=== PATIENT | male | born 1995 | race Caucasian/White ===

== ENCOUNTER 2018-03-13 16:48 | Emergency (ER) | payer OTHER ==
[2018-03-13] MEDS: LORazepam 1 MG TABLET PO (17:19)
== END 2018-03-13 18:05 | disposition home or self-care (01) ==
LOC: ER 16:48
DX: T69.022A Immersion foot, left foot, initial encounter (principal); T69.021A Immersion foot, right foot, initial encounter; F17.200 Nicotine dependence, unspecified, uncomplicated; F15.10 Other stimulant abuse, uncomplicated; Z88.0 Allergy status to penicillin; X58.XXXA Exposure to other specified factors, initial encounter; Y93.89 Activity, other specified; Y99.8 Other external cause status; Y92.89 Other specified places as the place of occurrence of the external cause
CPT/HCPCS: 71045; 93005; 99284

== ENCOUNTER 2019-04-17 08:10 | Inpatient (IN) | payer OTHER ==
[~2019-04-17] VITALS: Ht 185.4 cm; Wt 83.9 kg
[~2019-04-17 08:10] MED LIST: LORA-434 PO
[2019-04-17] MEDS ORDERED: IBUPROFEN 200 MG TABLET. PO ONE ×2 (08:26→08:45)
--- NOTE | 2019-04-17 08:40 | PHYS DOC ---
Past Medical History Past Medical History: Other Additional Past Medical Histor: HEARS VOICES,TOOK ANTIPSYCHOTIC MEDS IN PAST Past Surgical History: Tonsillectomy Alcohol Use: Heavy Drug Use: Methamphetamine Adult General Chief Complaint Chief Complaint: FOOT INJURY PAIN HPI HPI 23-year-old male presents to ER with plans of bilateral foot pain is increasingly becoming worse and making it difficult to walk. Patient denies fever, swelling, injury. Patient states he is homeless and has no change of socks/shoes. Pt reports hx of Meth use- with last use 2 days ago. Pt was seen in the ER last year with similar symptoms he reports today his symptoms are worse than that ER visit. Review of Systems Review of Systems Constitutional: Denies fever or chills [] Eyes: Denies change in visual acuity, redness, or eye pain [] HENT: Denies nasal congestion or sore throat [] Respiratory: Denies cough or shortness of breath [] Cardiovascular: No additional information not addressed in HPI [] GI: Denies abdominal pain, nausea, vomiting, bloody stools or diarrhea [] : Denies dysuria or hematuria [] Musculoskeletal: Denies back pain. Reports bilat. foot pain and difficulty walking Integument: Denies rash or skin lesions [] Neurologic: Denies headache, focal weakness or sensory changes [] All other systems were reviewed and found to be within normal limits, except as documented in this note. Current Medications Current Medications Current Medications Medications (Trade) Dose Ordered Sig/Lanette Start Time Stop Time Status Last Admin Dose Admin Fentanyl Citrate (Fentanyl 2ml Vial) 25 mcg 1X ONCE 04/17/19 09:15 04/17/19 09:16 Ibuprofen (Motrin) 200 mg STK-MED ONCE 04/17/19 08:26 04/17/19 08:27 DC Nicotine (Nicoderm Cq 21mg) 1 patch DAILY 04/17/19 09:00 Sodium Chloride 1,000 ml @ 1,000 mls/hr 1X ONCE 04/17/19 09:00 04/17/19 09:59 04/17/19 09:03 1,000 MLS/HR Allergies Allergies Allergies Coded Allergies Type Severity Reaction Last Updated Verified Penicillins Allergy Intermediate Rash 03/02/14 Yes Physical Exam Physical Exam Constitutional: Well developed, well nourished, no acute distress, non-toxic appearance. [] HENT: Normocephalic, atraumatic, oropharynx moist, nose normal. [] Eyes: Pupils equal, conjunctiva normal, no discharge. [] Neck: Normal range of motion, supple, no stridor. [] Cardiovascular: Heart rate regular rhythm, no murmur [] Lungs & Thorax: Bilateral breath sounds clear to auscultation [] Abdomen: Bowel sounds normal, soft, no tenderness, no masses, no pulsatile masses. [] Skin: Warm, dry, no erythema, no rash. [] Back: No tenderness, full ROM Extremities: No cyanosis, no clubbing, ROM intact, no edema. 2+ bilat. posterior tibial/dorsalis pedis. Bilat. plantar surface into lateral/medial sides of feet and edges of toes- white/wrinkled appearance no open wounds. No cellulitic appearance Neurologic: Alert and oriented X 3, normal motor function, normal sensory function, no focal deficits noted. [] Psychologic: Affect normal, judgement normal, mood normal. [] Current Patient Data Vital Signs Vital Signs Date Time Temp Pulse Resp B/P (MAP) Pulse Ox O2 Delivery O2 Flow Rate FiO2 04/17/19 08:13 98.5 106 18 151/84 (106) 98 98.5 EKG EKG [] Radiology/Procedures Radiology/Procedures [] Course & Med Decision Making Course & Med Decision Making Pertinent Labs reviewed. (See chart for details) Patient was evaluated in the ER for complaints of bilateral foot pain and difficulty walking. Patient had exam findings of probable trench foot bilaterally. Patient had no open wounds severity admission was offered for further care and patient was agreeable with this plan. Initially patient was reluctant as he just started a new job this week however patient had concerns as he was having some much difficulty and pain with walking that he felt admission would help in his current situation. Will speak with hospitalist regarding patient's case and admit to their services for further care. Will obtain basic labs and provide patient with additional pain medication. He was provided with dose of ibuprofen at time of initial exam. 0903: Spoke with Dr. Ellsworth, hospitalist and discussed pt's case. Will consult wound care/podiatry with admit order. Yanna Disclaimer Dragon Disclaimer This electronic medical record was generated, in whole or in part, using a voice recognition dictation system. Departure Departure Impression: Primary Impression: Foot pain, bilateral Disposition: ADMITTED INPATIENT Admitting Physician: JYOTHI (Dr. Ellsworth) Referrals: COLUMBA COUCH MD (PCP) CRISPIN MONIQUE APRN Apr 17, 2019 08:40
[2019-04-17] MEDS ORDERED: IV NORMAL SALINE 1000ML BAG 1,000 ML IV ONE (09:00)
[2019-04-17 09:09] LABS: BASO % 1 % (0-3); EOS % 0 % (0-3); HEMATOCRIT 43.9 % (39.0-53.0); HEMOGLOBIN 14.9 g/dL (13.0-17.5); LYMPH # 1.9 x10^3/uL (1.0-4.8); LYMPH % 23 % (24-48); MEAN CORPUSCULAR HEMOGLOBIN 31 pg (25-35); MEAN CORPUSCULAR HGB CONC 34 g/dL (31-37); MEAN CORPUSCULAR VOLUME 90 fL (79-100); MONO # 0.8 x10^3/uL (0.0-1.1); MONO % 9 % (0-9); NEUT # 5.7 x10^3uL (1.8-7.7); NEUT % 68 % (31-73); PLATELET COUNT 241 x10^3/uL (140-400); RED BLOOD COUNT 4.86 x10^6/uL (4.30-5.70); RED CELL DISTRIBUTION WIDTH 14.4 % (11.5-14.5); WHITE BLOOD COUNT 8.5 x10^3/uL (4.0-11.0)
[2019-04-17] MEDS ORDERED: fentaNYL PF VIAL 100 MCG/2 ML VIAL IV ONE (09:15)
[2019-04-17 09:27] LABS: CALCIUM 10.7 mg/dL (8.5-10.1); GFR 91.8; POTASSIUM 4.5 mmol/L (3.5-5.1)
[2019-04-17] MEDS: NICOTINE 21MG PATCH. TD SCH (09:32)
[2019-04-17 09:33] LABS: ALBUMIN 5.2 g/dL (3.4-5.0); ALBUMIN/GLOBULIN RATIO 1.5 (1.0-1.7); C-REACTIVE PROTEIN 1.3 mg/L (0-3.3); TOTAL BILIRUBIN 0.8 mg/dL (0.2-1.0); TOTAL PROTEIN 8.6 g/dL (6.4-8.2)
[2019-04-17 09:45] VITALS: BP 141/81
--- NOTE | 2019-04-17 10:17 | NUR ---
PT. UP TO UNIT AT 0942 VIA WC FROM ER. THIS NURSE AND WEIGHT RECORDER MADE PT. COMFORTABLE. PT. WALKED FROM WC TO BED AND FROM BED TO BATHROOM WITH STEADY GAIT. PT. WALKED ON HEELS AT TIMES R/T FOOT PAIN. PT. EDUCATED ABOUT PT. SAFETY AND FALL PREVENTION. PT. VERBALIZED UNDERSTANDING AND SIGNED FALL RISK CONTRACT. PT. EDUCATED AND INFORMED ABOUT UNIT POLICIES/ROUTINES. VS AND HEAD TO TOE ASSESSMENT COMPLETED AND CHARTED. WILL CONTINUE TO MONITOR PT.
[2019-04-17 15:00] VITALS: BP 128/75
[2019-04-17] MEDS: IBUPROFEN 200 MG TABLET. PO PRN ×2 (15:11→22:37)
[2019-04-17] MEDS ORDERED: cloNIDine HCL 0.1 MG TABLET PO PRN (16:30)
[2019-04-17] MEDS ORDERED: HALOPERIDOL LACTATE 5 MG/ML VIAL. IVP PRN (16:30)
[2019-04-17] MEDS ORDERED: diphenhydrAMINE 50 MG/ML VIAL IVP PRN (16:30)
[2019-04-17] MEDS ORDERED: MULTIVIT INFUSN,ADULT 4,VIT K 10 ML, THIAMINE INJ 100 MG, FOLIC ACID INJ 1 MG in IV NOR... IV ONE (17:00)
[2019-04-17] MEDS: FLUCONAZOLE 100 MG TABLET. PO SCH (17:31)
[2019-04-17] MEDS: LORazepam 1 MG TABLET PO SCH ×2 (17:31→22:30)
--- NOTE | 2019-04-17 19:01 | HP ---
ADMIT DATE: 04/17/2019 CHIEF COMPLAINT: Foot pain. HISTORY OF PRESENT ILLNESS: The patient is a pleasant 23-year-old male who is homeless. He states he drinks a lot of vodka. A few days ago after rain he did not take the shows off, he has had wet shoes on for several days, now he has trench foot, has associated pain. I discussed the case with ER physician. We are going to admit the patient. PAST MEDICAL HISTORY: He hears voices, he took some antipsychotic meds; tonsillectomy, methamphetamine abuse, alcohol abuse. ALLERGIES: None. FAMILY HISTORY: Hypertension. SOCIAL HISTORY: He drinks alcohol heavily, vodka every day. He smokes socially. He smokes methamphetamine as well. He is homeless. MEDICATIONS: Reviewed, please refer to the MRAD. REVIEW OF SYSTEMS: GENERAL: No history of weight change, weakness or fevers. SKIN: No bruising, hair changes or rashes. EYES: No blurred, double or loss of vision. NOSE AND THROAT: No history of nosebleeds, hoarseness or sore throat. HEART: No history of palpitations, chest pain or shortness of breath on exertion. LUNGS: Denies cough, hemoptysis, wheezing or shortness of breath. GASTROINTESTINAL: Denies changes in appetite, nausea, vomiting, diarrhea or constipation. GENITOURINARY: No history of frequency, urgency, hesitancy or nocturia. NEUROLOGIC: Denies history of numbness, tingling, tremor or weakness. PSYCHIATRIC: No history of panic, anxiety or depression. ENDOCRINE: No history of heat or cold intolerance, polyuria or polydipsia. EXTREMITIES: He complains of foot pain bilaterally. PHYSICAL EXAMINATION: VITAL SIGNS: Temperature afebrile, pulse 70, respirations 18, blood pressure 140/90. GENERAL: He is alert, cooperative, pleasant. HEART: Normal S1, S2. LUNGS: Clear. ABDOMEN: Soft. EXTREMITIES: He has got bilateral foot lesions. The skin is very moist and wet. It is trying to dry out now that we have his shoes and socks off. There is some wrinkling of the skin. Appears he has tinea pedis. ASSESSMENT AND PLAN: Trench foot, tinea pedis. The patient is being admitted. We will make sure he gets plenty of fresh air to his feet. I told him to keep his shoes and socks off and keep the windows open. We will consider some antifungals and maybe even antibiotics. I talked to the nurse, the patient might leave AMA. We are going to put him on alcohol withdrawal protocol, home meds, director social service consult. GEREMIAS CARRERO DO DR: CADY/tony JOB#: [id number] / [id number]
[2019-04-17 19:15] VITALS: BP 121/68
[2019-04-17 19:32] LABS: AMPHETAMINE/METHAMPHETAMINE POS (NEG); BARBITURATES NEG (NEG); BENZODIAZEPINES NEG (NEG); CANNABINOIDS NEG (NEG); COCAINE POS (NEG); METHADONE NEG (NEG); OPIATES NEG (NEG); PHENCYCLIDINE NEG (NEG)
[2019-04-17 23:07] VITALS: BP 138/71
[2019-04-18] MEDS: LORazepam 1 MG TABLET PO SCH ×2 (04:30→08:52)
[2019-04-18 07:00] VITALS: BP 127/73
[2019-04-18] MEDS: MULTIVITAMIN with MINERAL TABLET. PO SCH (08:52)
[2019-04-18] MEDS: THIAMINE 100 MG TABLET. PO SCH (08:52)
[2019-04-18] MEDS: FOLIC ACID 1 MG TABLET. PO SCH (08:52)
[2019-04-18] MEDS: FLUCONAZOLE 100 MG TABLET. PO SCH (08:52)
[2019-04-18] MEDS: NICOTINE 21MG PATCH. TD SCH (08:52)
[2019-04-18] MEDS ORDERED: THIAMINE INJ 100 MG in IV DEXTROSE 5% 50 ML IV SCH (09:00)
[2019-04-18 11:00] VITALS: BP 129/73
--- NOTE | 2019-04-18 11:03 | PDOC ---
[employer] PROGRESS NOTE Chief Complaint Chief Complaint Resolving trench foot Tinea pedis Alcohol issues Homeless Psych issues History of Present Illness History of Present Illness Patient seen and examined His feet are much better Suspect he could be discharged We are awaiting the PAT team to evaluate Discussed with case management Vitals Vitals Vital Signs Date Time Temp Pulse Resp B/P (MAP) Pulse Ox O2 Delivery O2 Flow Rate FiO2 04/18/19 07:50 Room Air 04/18/19 07:00 98.1 81 18 127/73 (91) 99 98.1 Physical Exam General: Alert, Oriented X3, Cooperative Heart: Regular rate, Normal S1, Normal S2 Lungs: Clear Abdomen: Normal bowel sounds, Soft Extremities: No clubbing, Other (both feet are much rice drier and have better color there is medium-size ulcer on each plantar surface) Labs Labs: Laboratory Tests Test 04/17/19 18:45 04/17/19 19:10 Direct Bilirubin 0.2 mg/dL (0.0-0.2) Urine Opiates Screen Neg (NEG) Urine Methadone Screen Neg (NEG) Urine Barbiturates Neg (NEG) Urine Phencyclidine Screen Neg (NEG) Urine Amphetamine/Methamphetamine Pos (NEG) Urine Benzodiazepines Screen Neg (NEG) Urine Cocaine Screen Pos (NEG) Urine Cannabinoids Screen Neg (NEG) Urine Ethyl Alcohol Neg (NEG) Assessment and Plan Assessmemt and Plan Problems Medical Problems: (1) Foot pain, bilateral Status: Acute Resolving trench foot Tinea pedis Alcohol issues Homeless Psych issues Plan Discharge planning per psychiatric assessment team Continue Diflucan He's keep his feet dry Home meds Comment Review of Relevant I have reviewed the following items mira (where applicable) has been applied. Labs Laboratory Tests Test 04/17/19 09:00 04/17/19 18:45 04/17/19 19:10 White Blood Count 8.5 x10^3/uL (4.0-11.0) Red Blood Count 4.86 x10^6/uL (4.30-5.70) Hemoglobin 14.9 g/dL (13.0-17.5) Hematocrit 43.9 % (39.0-53.0) Mean Corpuscular Volume 90 fL (79-100) Mean Corpuscular Hemoglobin 31 pg (25-35) Mean Corpuscular Hemoglobin Concent 34 g/dL (31-37) Red Cell Distribution Width 14.4 % (11.5-14.5) Platelet Count 241 x10^3/uL (140-400) Neutrophils (%) (Auto) 68 % (31-73) Lymphocytes (%) (Auto) 23 % (24-48) Monocytes (%) (Auto) 9 % (0-9) Eosinophils (%) (Auto) 0 % (0-3) Basophils (%) (Auto) 1 % (0-3) Neutrophils # (Auto) 5.7 x10^3uL (1.8-7.7) Lymphocytes # (Auto) 1.9 x10^3/uL (1.0-4.8) Monocytes # (Auto) 0.8 x10^3/uL (0.0-1.1) Eosinophils # (Auto) 0.0 x10^3/uL (0.0-0.7) Basophils # (Auto) 0.0 x10^3/uL (0.0-0.2) Erythrocyte Sedimentation Rate 4 (0-15) Sodium Level 139 mmol/L (136-145) Potassium Level 4.5 mmol/L (3.5-5.1) Chloride Level 100 mmol/L (98-107) Carbon Dioxide Level 27 mmol/L (21-32) Anion Gap 12 (6-14) Blood Urea Nitrogen 18 mg/dL (8-26) Creatinine 1.0 mg/dL (0.7-1.3) Estimated GFR (Cockcroft-Gault) 91.8 BUN/Creatinine Ratio 18 (6-20) Glucose Level 110 mg/dL (70-99) Calcium Level 10.7 mg/dL (8.5-10.1) Total Bilirubin 0.8 mg/dL (0.2-1.0) Aspartate Amino Transf (AST/SGOT) 27 U/L (15-37) Alanine Aminotransferase (ALT/SGPT) 66 U/L (16-63) Alkaline Phosphatase 84 U/L (46-116) C-Reactive Protein, Quantitative 1.3 mg/L (0-3.3) Total Protein 8.6 g/dL (6.4-8.2) Albumin 5.2 g/dL (3.4-5.0) Albumin/Globulin Ratio 1.5 (1.0-1.7) Direct Bilirubin 0.2 mg/dL (0.0-0.2) Urine Opiates Screen Neg (NEG) Urine Methadone Screen Neg (NEG) Urine Barbiturates Neg (NEG) Urine Phencyclidine Screen Neg (NEG) Urine Amphetamine/Methamphetamine Pos (NEG) Urine Benzodiazepines Screen Neg (NEG) Urine Cocaine Screen Pos (NEG) Urine Cannabinoids Screen Neg (NEG) Urine Ethyl Alcohol Neg (NEG) Laboratory Tests Test 04/17/19 18:45 04/17/19 19:10 Direct Bilirubin 0.2 mg/dL (0.0-0.2) Urine Opiates Screen Neg (NEG) Urine Methadone Screen Neg (NEG) Urine Barbiturates Neg (NEG) Urine Phencyclidine Screen Neg (NEG) Urine Amphetamine/Methamphetamine Pos (NEG) Urine Benzodiazepines Screen Neg (NEG) Urine Cocaine Screen Pos (NEG) Urine Cannabinoids Screen Neg (NEG) Urine Ethyl Alcohol Neg (NEG) Medications Current Medications Ibuprofen (Motrin) 600 mg 1X ONCE PO Last administered on 04/17/19at 08:27; Start 04/17/19 at 08:45; Stop 04/17/19 at 08:46; Status DC Ibuprofen (Motrin) 200 mg STK-MED ONCE PO ; Start 04/17/19 at 08:26; Stop 04/17/19 at 08:27; Status DC Sodium Chloride 1,000 ml @ 1,000 mls/hr 1X ONCE IV Last administered on 04/17/19at 09:03; Start 04/17/19 at 09:00; Stop 04/17/19 at 09:59; Status DC Nicotine (Nicoderm Cq 21mg) 1 patch DAILY TD Last administered on 04/18/19at 08:52; Start 04/17/19 at 09:00 Fentanyl Citrate (Fentanyl 2ml Vial) 25 mcg 1X ONCE IV Last administered on 04/17/19at 09:05; Start 04/17/19 at 09:15; Stop 04/17/19 at 09:16; Status DC Ibuprofen (Motrin) 600 mg PRN Q6HRS PRN PO PAIN Last administered on 04/17/19at 22:37; Start 04/17/19 at 09:15 Multivitamins 10 ml/Thiamine HCl 100 mg/Folic Acid 1 mg/Sodium Chloride 1,011.2 ml @ 100 mls/ hr 1X ONCE IV Last administered on 04/17/19at 17:31; Start 04/17/19 at 17:00; Stop 04/18/19 at 03:06; Status DC Multivitamins (Thera M Plus) 1 tab DAILY PO Last administered on 04/18/19at 08:52; Start 04/18/19 at 09:00 Folic Acid (Folic Acid) 1 mg DAILY PO Last administered on 04/18/19at 08:52; Start 04/18/19 at 09:00 Thiamine Mononitrate (Vitamin B-1) 100 mg DAILY PO Last administered on 04/18/19at 08:52; Start 04/18/19 at 09:00 Thiamine HCl 100 mg/Dextrose 51 ml @ 100 mls/hr DAILY IV ; Start 04/18/19 at 09:00; Stop 04/22/19 at 09:31; Status UNV Lorazepam (Ativan) 2 mg Q6H PO Last administered on 04/18/19at 08:52; Start 04/17/19 at 16:30; Stop 04/18/19 at 10:47; Status DC Lorazepam (Ativan Inj) 2 mg PRN Q1HR PRN IV For CIWA 8-14 Last administered on 04/18/19at 06:26; Start 04/17/19 at 16:30 Lorazepam (Ativan Inj) 4 mg PRN Q1HR PRN IV For CIWA 15 or greater; Start 04/17/19 at 16:30 Haloperidol Lactate (Haldol Inj) 5 mg PRN Q4HRS PRN IVP Hallucinatns,Confusn,Delirium; Start 04/17/19 at 16:30 Diphenhydramine HCl (Benadryl) 25 mg PRN Q15MIN PRN IVP EPS symptoms 2'Haldol admin; Start 04/17/19 at 16:30 Clonidine HCl (Catapres) 0.1 mg PRN Q1HR PRN PO SBP > 180 or DBP > 100, MRX3; Start 04/17/19 at 16:30 Fluconazole (Diflucan) 200 mg DAILY PO Last administered on 04/18/19at 08:52; Start 04/17/19 at 17:00 Active Scripts Active Ativan (Lorazepam) 1 Mg Tablet 1 Mg PO TID Vitals/I & O Vital Sign - Last 24 Hours 04/17/19 04/17/19 04/17/19 04/17/19 15:00 19:15 20:00 23:07 Temp 97.7 98.2 97.9 97.7 98.2 97.9 Pulse 71 85 79 Resp 18 18 18 B/P (MAP) 128/75 (92) 121/68 (85) 138/71 (93) Pulse Ox 97 99 99 O2 Delivery Room Air Room Air Room Air Room Air 04/18/19 04/18/19 07:00 07:50 Temp 98.1 98.1 Pulse 81 Resp 18 B/P (MAP) 127/73 (91) Pulse Ox 99 O2 Delivery Room Air Room Air Intake and Output 04/17/19 04/17/19 04/18/19 14:59 22:59 06:59 Intake Total 250 ml 780 ml Output Total 550 ml Balance 250 ml 230 ml GEREMIAS CARRERO III DO Apr 18, 2019 11:03
[2019-04-18] MEDS: IBUPROFEN 200 MG TABLET. PO PRN (11:42)
--- NOTE | 2019-04-18 13:07 | NUR ---
SW following for discharge planning. Discussed with RN and Dr. Ellsworth, PAT team eval per Dr. Ellsworth due to pt meth and alcohol use/abuse. Pt possibly homeless as well. Shane from PAT team to see pt today, possible discharge tomorrow (04/19/19). SW will continue to follow.
[2019-04-18] MEDS: clonazePAM 0.5 MG TABLET PO SCH ×2 (13:39→21:42)
[2019-04-18] MEDS: buPROPion SR 150 MG TABLET.SA PO SCH ×2 (13:39→21:42)
[2019-04-18 15:00] VITALS: BP 133/80
--- NOTE | 2019-04-18 15:04 | NUR ---
EDELMIRA following. Shane from PAT team contacted SW to advise pt has been staying at [facility] on and off, however can't always stay there due to the policy. Pt reported to Shane he had been on Wellbutrin and Klonopin. Shane spoke with Dr. Ellsworth, who will restart those meds. Connie from PAT team will be coming to [facility] to do a RADAC assessment with pt, Thursday (04/20/19) morning at 0830am. Shane provided pt with a list of housing options as well as [facility]. Pt will follow with the [facility] after discharge. SW will continue to follow. RN notified.
--- NOTE | 2019-04-18 15:55 | NUR ---
Wound Care Pt seen for wound care consult re: bilateral foot wounds d/t moisture. Per pt, he is homeless and was walking around barefoot and with wet shoes. Pt has intact, serum filled blisters on bilateral plantar 3rd metatarsal head areas, no redness or fluctuance noted. Recommendation of leaving areas LINDA to continue to dry, unless blisters deroof, then recommendation of Xeroform and telfa dressing. Will continue to follow for any wound care changes, no other wounds noted. Pt requesting Ativan at this time, POC discussed with [facility].
[2019-04-18 19:00] VITALS: BP 140/78
[2019-04-18 23:00] VITALS: BP 129/78
--- NOTE | 2019-04-19 02:10 | NUR ---
Charted assessments for 744 when time was to be 1944.
[2019-04-19 03:00] VITALS: BP 125/66
[2019-04-19 07:00] VITALS: BP 132/66
[2019-04-19] MEDS: clonazePAM 0.5 MG TABLET PO SCH ×2 (07:47→20:10)
[2019-04-19] MEDS: FOLIC ACID 1 MG TABLET. PO SCH (07:47)
[2019-04-19] MEDS: THIAMINE 100 MG TABLET. PO SCH (07:47)
[2019-04-19] MEDS: MULTIVITAMIN with MINERAL TABLET. PO SCH (07:47)
[2019-04-19] MEDS: NICOTINE 21MG PATCH. TD SCH (07:48)
[2019-04-19] MEDS: FLUCONAZOLE 100 MG TABLET. PO SCH (07:48)
[2019-04-19] MEDS: buPROPion SR 150 MG TABLET.SA PO SCH ×2 (07:48→20:10)
[2019-04-19 11:00] VITALS: BP 121/76
--- NOTE | 2019-04-19 11:54 | PDOC ---
[employer] PROGRESS NOTE Chief Complaint Chief Complaint Resolving trench foot Tinea pedis Alcohol issues Homeless Psych issues History of Present Illness History of Present Illness Patient seen and examined His feet are much better Suspect he could be discharged We are awaiting the PAT team to evaluate I spoke with Shane twice I also spoke with the patient and his nurse Discussed with case management Vitals Vitals Vital Signs Date Time Temp Pulse Resp B/P (MAP) Pulse Ox O2 Delivery O2 Flow Rate FiO2 04/19/19 11:00 97.8 101 20 121/76 (91) 100 Room Air 97.8 Physical Exam General: Alert, Oriented X3, Cooperative Heart: Regular rate, Normal S1, Normal S2 Lungs: Clear Abdomen: Normal bowel sounds, Soft Extremities: No clubbing, Other (both feet are much soap drier operator and have better color there is medium-size ulcer on each plantar surface) Assessment and Plan Assessmemt and Plan Problems Medical Problems: (1) Foot pain, bilateral Status: Acute Resolving transferred and tenia pedis Plan I left prescriptions for Diflucan Klonopin and Wellbutrin Put discharge orders and if we can get him arrange for outpatient therapy Total time 32 minutes Comment Review of Relevant I have reviewed the following items mira (where applicable) has been applied. Labs Laboratory Tests Test 04/17/19 18:45 04/17/19 19:10 Direct Bilirubin 0.2 mg/dL (0.0-0.2) Urine Opiates Screen Neg (NEG) Urine Methadone Screen Neg (NEG) Urine Barbiturates Neg (NEG) Urine Phencyclidine Screen Neg (NEG) Urine Amphetamine/Methamphetamine Pos (NEG) Urine Benzodiazepines Screen Neg (NEG) Urine Cocaine Screen Pos (NEG) Urine Cannabinoids Screen Neg (NEG) Urine Ethyl Alcohol Neg (NEG) Medications Current Medications Ibuprofen (Motrin) 600 mg 1X ONCE PO Last administered on 04/17/19at 08:27; Start 04/17/19 at 08:45; Stop 04/17/19 at 08:46; Status DC Ibuprofen (Motrin) 200 mg STK-MED ONCE PO ; Start 04/17/19 at 08:26; Stop 04/17/19 at 08:27; Status DC Sodium Chloride 1,000 ml @ 1,000 mls/hr 1X ONCE IV Last administered on 04/17/19at 09:03; Start 04/17/19 at 09:00; Stop 04/17/19 at 09:59; Status DC Nicotine (Nicoderm Cq 21mg) 1 patch DAILY TD Last administered on 04/19/19at 07:48; Start 04/17/19 at 09:00 Fentanyl Citrate (Fentanyl 2ml Vial) 25 mcg 1X ONCE IV Last administered on 04/17/19at 09:05; Start 04/17/19 at 09:15; Stop 04/17/19 at 09:16; Status DC Ibuprofen (Motrin) 600 mg PRN Q6HRS PRN PO PAIN Last administered on 04/18/19at 11:42; Start 04/17/19 at 09:15 Multivitamins 10 ml/Thiamine HCl 100 mg/Folic Acid 1 mg/Sodium Chloride 1,011.2 ml @ 100 mls/ hr 1X ONCE IV Last administered on 04/17/19at 17:31; Start 04/17/19 at 17:00; Stop 04/18/19 at 03:06; Status DC Multivitamins (Thera M Plus) 1 tab DAILY PO Last administered on 04/19/19at 07:47; Start 04/18/19 at 09:00 Folic Acid (Folic Acid) 1 mg DAILY PO Last administered on 04/19/19at 07:47; Start 04/18/19 at 09:00 Thiamine Mononitrate (Vitamin B-1) 100 mg DAILY PO Last administered on 04/19/19at 07:47; Start 04/18/19 at 09:00 Thiamine HCl 100 mg/Dextrose 51 ml @ 100 mls/hr DAILY IV ; Start 04/18/19 at 09:00; Stop 04/22/19 at 09:31; Status UNV Lorazepam (Ativan) 2 mg Q6H PO Last administered on 04/18/19at 08:52; Start 04/17/19 at 16:30; Stop 04/18/19 at 10:47; Status DC Lorazepam (Ativan Inj) 2 mg PRN Q1HR PRN IV For CIWA 8-14 Last administered on 04/19/19at 10:12; Start 04/17/19 at 16:30 Lorazepam (Ativan Inj) 4 mg PRN Q1HR PRN IV For CIWA 15 or greater; Start 04/17/19 at 16:30 Haloperidol Lactate (Haldol Inj) 5 mg PRN Q4HRS PRN IVP Hallucinatns,Confusn,Delirium; Start 04/17/19 at 16:30 Diphenhydramine HCl (Benadryl) 25 mg PRN Q15MIN PRN IVP EPS symptoms 2'Haldol admin; Start 04/17/19 at 16:30 Clonidine HCl (Catapres) 0.1 mg PRN Q1HR PRN PO SBP > 180 or DBP > 100, MRX3; Start 04/17/19 at 16:30 Fluconazole (Diflucan) 200 mg DAILY PO Last administered on 04/19/19at 07:48; Start 04/17/19 at 17:00 Clonazepam (KlonoPIN) 0.5 mg BID PO Last administered on 04/19/19at 07:47; Start 04/18/19 at 14:00 Bupropion HCl (Wellbutrin Sr) 150 mg BID PO Last administered on 04/19/19at 07:48; Start 04/18/19 at 14:00 Active Scripts Active Ativan (Lorazepam) 1 Mg Tablet 1 Mg PO TID Vitals/I & O Vital Sign - Last 24 Hours 04/18/19 04/18/19 04/18/19 04/19/19 15:00 19:00 23:00 03:00 Temp 97.9 97.7 97.9 97.4 97.9 97.7 97.9 97.4 Pulse 83 96 98 97 Resp 20 20 20 20 B/P (MAP) 133/80 (97) 140/78 (98) 129/78 (95) 125/66 (85) Pulse Ox 99 100 97 98 O2 Delivery Room Air Room Air Room Air Room Air 04/19/19 04/19/19 04/19/19 07:00 08:00 11:00 Temp 98.1 97.8 98.1 97.8 Pulse 106 101 Resp 20 20 B/P (MAP) 132/66 (88) 121/76 (91) Pulse Ox 99 100 O2 Delivery Room Air Room Air Room Air GEREMIAS CARRERO III DO Apr 19, 2019 11:54
--- NOTE | 2019-04-19 12:43 | NUR ---
EDELMIRA following for discharge planning. Discussed with Shane LOVELACE with [facility] team is trying to get RADAC assessment brought forward to today. Pt's plan is to go to [facility] [place] upon discharge. EDELMIRA will continue to follow. Addendum: 04/19/19 at 1443 by HERNANDEZ HICKEY Shane with [facility] team contacted EDELMIRA to advise pt's [facility] will be at 1530 today, instead of tomorrow. EDELMIRA notified pt. Pt plans to go to [facility] [place] upon discharge, and will need assistance with transportation. RN notified, cab pass will likely be provided to pt. EDELMIRA will continue to follow.
--- NOTE | 2019-04-19 12:46 | DS ---
DATE OF DISCHARGE: 04/19/2019 ADMISSION DIAGNOSIS: Trench foot. DISCHARGE DIAGNOSES: Resolving trench foot and resolving tinea pedis, probable psychiatric issues, alcoholism. HOSPITAL COURSE: The patient is a pleasant young healthy male who drinks too much. He is homeless, basically left his boots on in the rain for several days and ended up with a trench foot. We admitted him. By the next morning with air and sunshine exposed to his foot, the skin dried up very nicely. He really does not have any obvious infection except for tenia pedis. I did put him on Diflucan. We have asked the psychiatric assessment team to see him because of his alcohol issues and psych issues. I have talked to Shane from the PAT team several times. The plan is to hopefully get the patient home today after the RADAC sees him. DISPOSITION: Home. ACTIVITY: As tolerated. DIET: Low sodium. MEDICATIONS: Please see the MRAD. TOTAL TIME: 32 minutes. GEREMIAS CARRERO DO DR: CADY/tony JOB#: [id number] / [id number]
[2019-04-19 15:00] VITALS: BP 121/76
[2019-04-19 19:00] VITALS: BP 128/77
--- NOTE | 2019-04-19 21:05 | CONS ---
DATE OF CONSULTATION: 04/19/2019 PODIATRIC CONSULTATION: REVIEW OF RECORD: This is a 23-year-old male that is homeless, history of alcoholism, which he is currently being treated. He presented with a trench foot, very wet feet. This has been addressed by wound care and they are improving. There are some blistering areas that are shrinking down, they have not ruptured. No sign of infection is noted. My impression is regarding his inability to cut his toenails. Right hallux nail has some dried blood underneath the nail plate and all nails are long and loose. REVIEW OF HISTORY: He has a history of antipsychotic medications, tonsillectomy, methamphetamine abuse, alcohol abuse. ALLERGIES: None. SOCIAL HISTORY: Heavy alcohol use, vodka every day. Smokes socially. Smokes methamphetamines as well as homeless. EXAMINATION: Long nails that are loose, subungual dried hemorrhage is noted. Right hallux nail most problematic. No signs of infection or abscess. The trench foot condition seems to be stable and improving along with some tinea pedis addressed by the instrument specialist. PLAN: I debrided all nails. No hemorrhage occurred. Thank you for the opportunity to help with this gentleman and hope he improves his situation in the near future. HUGH GRAHAM DPM DR: ANDREW/tony JOB#: [id number] / [id number]
[2019-04-19 23:00] VITALS: BP 119/70
[2019-04-20 03:00] VITALS: BP 118/68
[2019-04-20 07:00] VITALS: BP 120/52
[2019-04-20] MEDS: FLUCONAZOLE 100 MG TABLET. PO SCH (08:10)
[2019-04-20] MEDS: clonazePAM 0.5 MG TABLET PO SCH (08:10)
[2019-04-20] MEDS: buPROPion SR 150 MG TABLET.SA PO SCH (08:10)
[2019-04-20] MEDS: MULTIVITAMIN with MINERAL TABLET. PO SCH (08:11)
[2019-04-20] MEDS: FOLIC ACID 1 MG TABLET. PO SCH (08:11)
[2019-04-20] MEDS: THIAMINE 100 MG TABLET. PO SCH (08:11)
[2019-04-20] MEDS: NICOTINE 21MG PATCH. TD SCH (08:11)
--- NOTE | 2019-04-20 09:59 | NUR ---
SW following for discharge planning. Discussed with RN, pt discharging with a cab pass at 0930 to [facility] for treatment. No further SW needs.
--- NOTE | 2019-04-20 10:35 | NUR ---
pt is discharged to [facility] adult detox unit at 1008 via ambulation via DIANA Joyce. pt is in stable condition. pt has all belongings with him, unable to get sandals for pt to wear. pt received discharge instructions and prescriptions and stated he had no further questions for me. pt took cab directly to the detox unit.
== END 2019-04-20 10:08 | disposition short-term general hospital (02) | DRG 923 ==
LOC: ER 08:10 → 4 NORTH 08:55
PROVIDERS: ADMIT Internal Medicine; ATTEND Internal Medicine
PROC: 0HBRXZZ Excision of Toe Nail, External Approach (ICD-10-PCS; principal; 2019-04-19)
PROC: 0HBRXZZ Excision of Toe Nail, External Approach (ICD-10-PCS; 2019-04-19)
PROC: 0HBRXZZ Excision of Toe Nail, External Approach (ICD-10-PCS; 2019-04-19)
PROC: 0HBRXZZ Excision of Toe Nail, External Approach (ICD-10-PCS; 2019-04-19)
PROC: 0HBRXZZ Excision of Toe Nail, External Approach (ICD-10-PCS; 2019-04-19)
PROC: 0HBRXZZ Excision of Toe Nail, External Approach (ICD-10-PCS; 2019-04-19)
PROC: 0HBRXZZ Excision of Toe Nail, External Approach (ICD-10-PCS; 2019-04-19)
PROC: 0HBRXZZ Excision of Toe Nail, External Approach (ICD-10-PCS; 2019-04-19)
PROC: 0HBRXZZ Excision of Toe Nail, External Approach (ICD-10-PCS; 2019-04-19)
PROC: 0HBRXZZ Excision of Toe Nail, External Approach (ICD-10-PCS; 2019-04-19)
DX: T69.022A Immersion foot, left foot, initial encounter (principal); B35.3 Tinea pedis; T69.021A Immersion foot, right foot, initial encounter; Z59.0 Homelessness; F10.20 Alcohol dependence, uncomplicated; F15.90 Other stimulant use, unspecified, uncomplicated; F17.200 Nicotine dependence, unspecified, uncomplicated; Z82.49 Family history of ischemic heart disease and other diseases of the circulatory system; Z90.49 Acquired absence of other specified parts of digestive tract; Z88.0 Allergy status to penicillin
CPT/HCPCS: 36415; 80053; 80307; 82248; 85025; 85651; 86140; 96361; 96374; 99406; J2060; J3010; J7030; 99285-25

== ENCOUNTER 2019-05-08 21:04 | Emergency (ER) | payer OTHER ==
[~2019-05-08] VITALS: Ht 185.4 cm; Wt 86.2 kg
[2019-05-08 21:21] LABS: BILIRUBIN,URINE NEGATIVE (NEG); CLARITY,URINE CLEAR; COLOR,URINE YELLOW; NITRITE,URINE NEGATIVE (NEG); PROTEIN,URINE NEGATIVE (NEG-TRACE); UROBILINOGEN,URINE 0.2 mg/dL (0.2 mg/dL)
[2019-05-08 21:26] LABS: BACTERIA,URINE 0 /HPF (0-FEW); RBC,URINE 0 /HPF (0-2); WBC,URINE 0 /HPF (0-4)
[2019-05-08 21:27] LABS: BARBITURATES NEG (NEG); BENZODIAZEPINES NEG (NEG); CANNABINOIDS NEG (NEG); COCAINE POS (NEG); METHADONE NEG (NEG); OPIATES NEG (NEG); PHENCYCLIDINE NEG (NEG)
[2019-05-08 21:29] LABS: AMPHETAMINE/METHAMPHETAMINE NEG (NEG)
[2019-05-08 21:44] LABS: BASO % 1 % (0-3); EOS # 0.2 x10^3/uL (0.0-0.7); EOS % 3 % (0-3); HEMOGLOBIN 13.4 g/dL (13.0-17.5); LYMPH # 2.4 x10^3/uL (1.0-4.8); LYMPH % 50 % (24-48); MEAN CORPUSCULAR HEMOGLOBIN 31 pg (25-35); MEAN CORPUSCULAR HGB CONC 34 g/dL (31-37); MEAN CORPUSCULAR VOLUME 90 fL (79-100); MONO # 0.5 x10^3/uL (0.0-1.1); MONO % 11 % (0-9); NEUT # 1.7 x10^3uL (1.8-7.7); NEUT % 35 % (31-73); PLATELET COUNT 198 x10^3/uL (140-400); RED BLOOD COUNT 4.32 x10^6/uL (4.30-5.70); RED CELL DISTRIBUTION WIDTH 14.2 % (11.5-14.5); WHITE BLOOD COUNT 4.9 x10^3/uL (4.0-11.0)
--- NOTE | 2019-05-08 21:45 | PHYS DOC ---
Past Medical History Past Medical History: Alcoholism Additional Past Medical Histor: HEARS VOICES,TOOK ANTIPSYCHOTIC MEDS IN PAST (RAISA CURRY APRN) Past Surgical History: Tonsillectomy (RAISA CURRY APRN) Additional Information: 1/2ppd Alcohol Use: Heavy Additional Information: has decreased alcohol intake currently reports about 1/4 gallon of vodka with OJ daily, and drank a "couple" of beers last night Drug Use: Cocaine, Methamphetamine Social History Narrative: reports he smokes meth "frequently" and crack "a couple of times" (RAISA CURRY APRN) Adult General Chief Complaint Chief Complaint: WITHDRAWL HPI HPI Patient is a 23 year old male with history of alcohol abuse, drug abuse, who presents to the ED today requesting to go to rehab for alcohol and drug use. He states the last time he used drugs and alcohol was yesterday. Denies any suicidal or homicidal ideations. He states his homeless. (RAISA CURRY APRN) Review of Systems Review of Systems Constitutional: Denies fever or chills [] Eyes: Denies change in visual acuity, redness, or eye pain [] HENT: Denies nasal congestion or sore throat [] Respiratory: Denies cough or shortness of breath [] Cardiovascular: No additional information not addressed in HPI [] GI: Denies abdominal pain, nausea, vomiting, bloody stools or diarrhea [] : Denies dysuria or hematuria [] Musculoskeletal: Denies back pain or joint pain [] Integument: Denies rash or skin lesions [] Neurologic: Denies headache, focal weakness or sensory changes [] Psych: Reports the use of alcohol and drugs All other systems were reviewed and found to be within normal limits, except as documented in this note. (RAISA CURRY APRN) Current Medications Current Medications Current Medications Medications (Trade) Dose Ordered Sig/Lanette Start Time Stop Time Status Last Admin Dose Admin Multivitamins 10 ml/Thiamine HCl 100 mg/Folic Acid 1 mg/Sodium Chloride 1,011.2 ml @ 1,000.088 mls/hr 1X ONCE 05/08/19 22:00 05/08/19 23:00 DC 05/08/19 21:31 1,000.088 MLS/HR (SONIA DICKSON MD) Allergies Allergies Allergies Coded Allergies Type Severity Reaction Last Updated Verified Penicillins Allergy Intermediate Rash 03/02/14 Yes (SONIA DICKSON MD) Physical Exam Physical Exam Constitutional: Well developed, well nourished, no acute distress, non-toxic appearance. [] HENT: Normocephalic, atraumatic, bilateral external ears normal, oropharynx moist, no oral exudates, nose normal. [] Eyes: PERRLA, EOMI, conjunctiva normal, no discharge. [] Neck: Normal range of motion, no tenderness, supple, no stridor. [] Cardiovascular:Heart rate regular rhythm, no murmur [] Lungs & Thorax: Bilateral breath sounds clear to auscultation [] Abdomen: Bowel sounds normal, soft, no tenderness, no masses, no pulsatile masses. [] Skin: Warm, dry, no erythema, no rash. [] Back: No tenderness, no CVA tenderness. [] Extremities: No tenderness, no cyanosis, no clubbing, ROM intact, no edema. [] Neurologic: Alert and oriented X 3, normal motor function, normal sensory function, no focal deficits noted. [] Psychologic: Affect normal, judgement normal, mood normal. [] (RAISA CURRY APRN) Current Patient Data Vital Signs Vital Signs Date Time Temp Pulse Resp B/P (MAP) Pulse Ox O2 Delivery O2 Flow Rate FiO2 05/08/19 23:00 74 21 98 Room Air 05/08/19 21:20 98.6 98.6 (SONIA DICKSON MD) Lab Values Laboratory Tests Test 05/08/19 21:07 05/08/19 21:23 Urine Collection Type Unknown Urine Color Yellow Urine Clarity Clear Urine pH 6.0 Urine Specific [place] 1.025 Urine Protein Negative mg/dL (NEG-TRACE) Urine Glucose (UA) Negative mg/dL (NEG) Urine Ketones (Stick) Negative mg/dL (NEG) Urine Blood Negative (NEG) Urine Nitrite Negative (NEG) Urine Bilirubin Negative (NEG) Urine Urobilinogen Dipstick 0.2 mg/dL (0.2 mg/dL) Urine Leukocyte Esterase Negative (NEG) Urine RBC 0 /HPF (0-2) Urine WBC 0 /HPF (0-4) Urine Bacteria 0 /HPF (0-FEW) Urine Opiates Screen Neg (NEG) Urine Methadone Screen Neg (NEG) Urine Barbiturates Neg (NEG) Urine Phencyclidine Screen Neg (NEG) Urine Amphetamine/Methamphetamine Neg (NEG) Urine Benzodiazepines Screen Neg (NEG) Urine Cocaine Screen Pos (NEG) Urine Cannabinoids Screen Neg (NEG) Urine Ethyl Alcohol Neg (NEG) White Blood Count 4.9 x10^3/uL (4.0-11.0) Red Blood Count 4.32 x10^6/uL (4.30-5.70) Hemoglobin 13.4 g/dL (13.0-17.5) Hematocrit 39.0 % (39.0-53.0) Mean Corpuscular Volume 90 fL (79-100) Mean Corpuscular Hemoglobin 31 pg (25-35) Mean Corpuscular Hemoglobin Concent 34 g/dL (31-37) Red Cell Distribution Width 14.2 % (11.5-14.5) Platelet Count 198 x10^3/uL (140-400) Neutrophils (%) (Auto) 35 % (31-73) Lymphocytes (%) (Auto) 50 % (24-48) H Monocytes (%) (Auto) 11 % (0-9) H Eosinophils (%) (Auto) 3 % (0-3) Basophils (%) (Auto) 1 % (0-3) Neutrophils # (Auto) 1.7 x10^3uL (1.8-7.7) L Lymphocytes # (Auto) 2.4 x10^3/uL (1.0-4.8) Monocytes # (Auto) 0.5 x10^3/uL (0.0-1.1) Eosinophils # (Auto) 0.2 x10^3/uL (0.0-0.7) Basophils # (Auto) 0.0 x10^3/uL (0.0-0.2) Sodium Level 141 mmol/L (136-145) Potassium Level 3.9 mmol/L (3.5-5.1) Chloride Level 102 mmol/L (98-107) Carbon Dioxide Level 27 mmol/L (21-32) Anion Gap 12 (6-14) Blood Urea Nitrogen 17 mg/dL (8-26) Creatinine 1.2 mg/dL (0.7-1.3) Estimated GFR (Cockcroft-Gault) 74.4 BUN/Creatinine Ratio 14 (6-20) Glucose Level 132 mg/dL (70-99) H Calcium Level 8.5 mg/dL (8.5-10.1) Total Bilirubin 0.6 mg/dL (0.2-1.0) Aspartate Amino Transferase (AST) 17 U/L (15-37) Alanine Aminotransferase (ALT) 22 U/L (16-63) Alkaline Phosphatase 92 U/L (46-116) Total Protein 7.3 g/dL (6.4-8.2) Albumin 3.8 g/dL (3.4-5.0) Albumin/Globulin Ratio 1.1 (1.0-1.7) Lipase 105 U/L (73-393) Acetaminophen Level < 2 mcg/ml (10-30) L Acetaminophen Last Dose Date Acetaminophen Last Dose Time Ethyl Alcohol Level < 10 mg/dL (0-10) Laboratory Tests 05/08/19 21:23 Laboratory Tests 05/08/19 21:23 (SONIA DICKSON MD) EKG EKG [] (RAISA CURRY APRN) Radiology/Procedures Radiology/Procedures [] (RAISA CURRY APRN) Course & Med Decision Making Course & Med Decision Making Pertinent Labs and Imaging studies reviewed. (See chart for details) This is a 23-year-old male patient presenting to the ED today requesting to go to rehabilitation for alcohol and drug use. CBC, CMP, UA, negative for any acute findings. Salicylate and acetaminophen levels are normal. UDS noted for cocaine use. Alcohol level negative in lab work Estela PAT in the ED talking to patient. D/c to adult detox unit. Transport by Cab. (RAISA CURRY APRN) Course & Med Decision Making Staff Physician Addendum: I was working in the ER during the course of this patient's visit. I was available for consultation as needed, but I was not directly involved in the care of this patient. (SONIA DICKSON MD) Dragon Disclaimer Dragon Disclaimer This electronic medical record was generated, in whole or in part, using a voice recognition dictation system. (RAISA CURRY APRN) Departure Departure Impression: Primary Impression: Alcohol intoxication Additional Impression: Drug abuse Disposition: 01 HOME, SELF-CARE Condition: STABLE Referrals: COLUMBA COUCH MD (PCP) Patient Instructions: Alcohol Problems, Drug Abuse and Addiction-SportsMed Additional Instructions: Please head to adult detox for rehab. Scripts No Active Prescriptions or Reported Meds Problem Qualifiers Primary Impression: Alcohol intoxication Complication of substance-induced condition: uncomplicated Qualified Codes: F10.920 - Alcohol use, unspecified with intoxication, uncomplicated RAISA CURRY APRN May 08, 2019 21:45 SONIA DICKSON MD May 09, 2019 18:06
[2019-05-08 21:53] LABS: CALCIUM 8.5 mg/dL (8.5-10.1); CREATININE 1.2 mg/dL (0.7-1.3); GFR 74.4; POTASSIUM 3.9 mmol/L (3.5-5.1)
[2019-05-08 21:57] LABS: ACETAMIN < 2 mcg/ml (10-30); ETHANOL < 10 mg/dL (0-10)
[2019-05-08 21:59] LABS: ALBUMIN 3.8 g/dL (3.4-5.0); ALBUMIN/GLOBULIN RATIO 1.1 (1.0-1.7); TOTAL BILIRUBIN 0.6 mg/dL (0.2-1.0); TOTAL PROTEIN 7.3 g/dL (6.4-8.2)
[2019-05-08] MEDS ORDERED: MULTIVIT INFUSN,ADULT 4,VIT K 10 ML, THIAMINE INJ 100 MG, FOLIC ACID INJ 1 MG in IV NOR... IV ONE (22:00)
[2019-05-08 22:30] VITALS: BP 112/81
== END 2019-05-08 23:19 | disposition home or self-care (01) ==
LOC: ER 21:04
DX: F10.229 Alcohol dependence with intoxication, unspecified (principal); F14.10 Cocaine abuse, uncomplicated; F15.10 Other stimulant abuse, uncomplicated; F17.200 Nicotine dependence, unspecified, uncomplicated; Z88.0 Allergy status to penicillin; Z59.0 Homelessness; Y90.0 Blood alcohol level of less than 20 mg/100 ml
CPT/HCPCS: 36415; 80053; 80307; 80329; 81001; 83690; 85025; 96365; 99284; G0480; J7030

== ENCOUNTER 2019-05-29 14:09 | Inpatient (IN) | payer OTHER ==
[~2019-05-29] VITALS: Ht 188 cm; Wt 90.7 kg
[2019-05-29] MEDS ORDERED: IV NORMAL SALINE 1000ML BAG 1,000 ML IV ONE (14:30)
[2019-05-29 14:35] LABS: BASO % 1 % (0-3); EOS # 0.1 x10^3/uL (0.0-0.7); EOS % 1 % (0-3); HEMATOCRIT 43.2 % (39.0-53.0); LYMPH # 1.9 x10^3/uL (1.0-4.8); LYMPH % 35 % (24-48); MEAN CORPUSCULAR HEMOGLOBIN 31 pg (25-35); MEAN CORPUSCULAR HGB CONC 35 g/dL (31-37); MEAN CORPUSCULAR VOLUME 91 fL (79-100); MONO # 0.5 x10^3/uL (0.0-1.1); MONO % 10 % (0-9); NEUT # 2.8 x10^3/uL (1.8-7.7); NEUT % 53 % (31-73); PLATELET COUNT 277 x10^3/uL (140-400); RED BLOOD COUNT 4.78 x10^6/uL (4.30-5.70); RED CELL DISTRIBUTION WIDTH 13.8 % (11.5-14.5); WHITE BLOOD COUNT 5.3 x10^3/uL (4.0-11.0)
[2019-05-29 14:48] LABS: CALCIUM 9.2 mg/dL (8.5-10.1); CREATININE 1.4 mg/dL (0.7-1.3); GFR 62.3
[2019-05-29 14:53] LABS: ACETAMIN < 2 mcg/ml (10-30); ETHANOL 63 mg/dL (0-10); SALIC < 2.8 mg/dL (2.8-20.0)
[2019-05-29 14:54] LABS: ALBUMIN 4.2 g/dL (3.4-5.0); ALBUMIN/GLOBULIN RATIO 1.2 (1.0-1.7); TOTAL BILIRUBIN 0.7 mg/dL (0.2-1.0); TOTAL PROTEIN 7.8 g/dL (6.4-8.2)
--- NOTE | 2019-05-29 15:27 | PHYS DOC ---
Past Medical History Past Medical History: Alcoholism, Anxiety, Bipolar, Depression Additional Past Medical Histor: HEARS VOICES,TOOK ANTIPSYCHOTIC MEDS IN PAST Past Surgical History: Tonsillectomy Alcohol Use: Heavy Drug Use: Cocaine, Heroin, Methamphetamine, Opiates Adult General Chief Complaint Chief Complaint: DRUG ABUSE HPI HPI Patient is a 23 year old male who is homeless, was brought here by EMS for suicidal ideation and substance abuse. he said he is suicidal, but he is too scary in to kill himself by any physical way, he wanted to by overdosing himself with cocaine and methamphetamine. He had MIXED cocaine AND methamphetamine, and injected himself last night and today. He denies any headache, no abdominal pain, no nausea vomiting. Patient denies any chest pain. Patient denies homicidal ideation. Review of Systems Review of Systems Constitutional: Denies fever or chills [] Eyes: Denies change in visual acuity, redness, or eye pain [] HENT: Denies nasal congestion or sore throat [] Respiratory: Denies cough or shortness of breath [] Cardiovascular: No additional information not addressed in HPI [] GI: Denies abdominal pain, nausea, vomiting, bloody stools or diarrhea [] : Denies dysuria or hematuria [] Musculoskeletal: Denies back pain or joint pain [] Integument: Denies rash or skin lesions [] Neurologic: Denies headache, focal weakness or sensory changes [] Endocrine: Denies polyuria or polydipsia [] PSYCH: POSITIVE FOR SUICIDAL IDEATION, NO HOMICIDAL IDEATION. All other systems were reviewed and found to be within normal limits, except as documented in this note. Current Medications Current Medications Current Medications Medications (Trade) Dose Ordered Sig/Lanette Start Time Stop Time Status Last Admin Dose Admin Sodium Chloride 1,000 ml @ 1,000 mls/hr 1X ONCE 05/29/19 14:30 05/29/19 15:29 DC 05/29/19 14:36 1,000 MLS/HR Allergies Allergies Allergies Coded Allergies Type Severity Reaction Last Updated Verified Penicillins Allergy Intermediate Rash 03/02/14 Yes Physical Exam Physical Exam Constitutional: Well developed, well nourished, no acute distress, non-toxic appearance. [] HENT: Normocephalic, atraumatic, bilateral external ears normal, oropharynx moist, no oral exudates, nose normal. [] Eyes: PERRLA, EOMI, conjunctiva normal, no discharge. [] Neck: Normal range of motion, no tenderness, supple, no stridor. [] Cardiovascular:Heart rate regular rhythm, no murmur [] Lungs & Thorax: Bilateral breath sounds clear to auscultation [] Abdomen: Bowel sounds normal, soft, no tenderness, no masses, no pulsatile masses. [] Skin: Warm, dry, no erythema, no rash. [] Back: No tenderness, no CVA tenderness. [] Extremities: No tenderness, no cyanosis, no clubbing, ROM intact, no edema. [] Neurologic: Alert and oriented X 3, normal motor function, normal sensory function, no focal deficits noted. [] Psychologic: Affect normal, NORMAL MOOD. HE ADMITTED OF SUICIDAL IDEATION. Current Patient Data Vital Signs Vital Signs Date Time Temp Pulse Resp B/P (MAP) Pulse Ox O2 Delivery O2 Flow Rate FiO2 05/29/19 14:09 97.9 87 18 138/77 (97) 100 Room Air 97.9 Lab Values Laboratory Tests Test 05/29/19 14:22 White Blood Count 5.3 x10^3/uL (4.0-11.0) Red Blood Count 4.78 x10^6/uL (4.30-5.70) Hemoglobin 15.0 g/dL (13.0-17.5) Hematocrit 43.2 % (39.0-53.0) Mean Corpuscular Volume 91 fL (79-100) Mean Corpuscular Hemoglobin 31 pg (25-35) Mean Corpuscular Hemoglobin Concent 35 g/dL (31-37) Red Cell Distribution Width 13.8 % (11.5-14.5) Platelet Count 277 x10^3/uL (140-400) Neutrophils (%) (Auto) 53 % (31-73) Lymphocytes (%) (Auto) 35 % (24-48) Monocytes (%) (Auto) 10 % (0-9) H Eosinophils (%) (Auto) 1 % (0-3) Basophils (%) (Auto) 1 % (0-3) Neutrophils # (Auto) 2.8 x10^3/uL (1.8-7.7) Lymphocytes # (Auto) 1.9 x10^3/uL (1.0-4.8) Monocytes # (Auto) 0.5 x10^3/uL (0.0-1.1) Eosinophils # (Auto) 0.1 x10^3/uL (0.0-0.7) Basophils # (Auto) 0.0 x10^3/uL (0.0-0.2) Sodium Level 142 mmol/L (136-145) Potassium Level 4.0 mmol/L (3.5-5.1) Chloride Level 103 mmol/L (98-107) Carbon Dioxide Level 24 mmol/L (21-32) Anion Gap 15 (6-14) H Blood Urea Nitrogen 16 mg/dL (8-26) Creatinine 1.4 mg/dL (0.7-1.3) H Estimated GFR (Cockcroft-Gault) 62.3 BUN/Creatinine Ratio 11 (6-20) Glucose Level 97 mg/dL (70-99) Calcium Level 9.2 mg/dL (8.5-10.1) Total Bilirubin 0.7 mg/dL (0.2-1.0) Aspartate Amino Transferase (AST) 18 U/L (15-37) Alanine Aminotransferase (ALT) 23 U/L (16-63) Alkaline Phosphatase 67 U/L (46-116) Total Protein 7.8 g/dL (6.4-8.2) Albumin 4.2 g/dL (3.4-5.0) Albumin/Globulin Ratio 1.2 (1.0-1.7) Salicylates Level < 2.8 mg/dL (2.8-20.0) L Salicylate Last Dose Date Unk Salicylate Last Dose Time Unk Acetaminophen Level < 2 mcg/ml (10-30) L Acetaminophen Last Dose Date Unk Acetaminophen Last Dose Time Unk Ethyl Alcohol Level 63 mg/dL (0-10) H Laboratory Tests 05/29/19 14:22 Laboratory Tests 05/29/19 14:22 EKG EKG [] Radiology/Procedures Radiology/Procedures [] Course & Med Decision Making Course & Med Decision Making Pertinent Labs and Imaging studies reviewed. (See chart for details) [] Dragon Disclaimer Dragon Disclaimer This electronic medical record was generated, in whole or in part, using a voice recognition dictation system. Departure Departure Impression: Primary Impression: Substance abuse Additional Impression: Suicidal ideation Referrals: NO PCP (PCP) Scripts No Active Prescriptions or Reported Meds Problem Qualifiers DEBBIE WEI DO May 29, 2019 15:27
--- NOTE | 2019-05-29 15:37 | HP ---
ADMIT DATE: CHIEF COMPLAINT: Substance abuse. HISTORY OF PRESENT ILLNESS: The patient is a pleasant young male who I just discharged a few weeks ago. At that time, we admitted him because of trench foot. He was out in the rain and was homeless. Now he comes in because he is tachycardic, it has been going on for 5 days. He is short of breath. States he has been injecting methamphetamines with his dad. I discussed the case with ER physician. We are going to admit the patient and consult the psychiatric assessment team because the patient is now suicidal. PAST MEDICAL HISTORY: Trench foot. Polysubstance abuse. He injects methamphetamine. ALLERGIES: PENICILLIN. FAMILY HISTORY: Drug abuse. He does drugs with his dad. SOCIAL HISTORY: He is homeless. He smokes and injects methamphetamine among other things. MEDICATIONS: Reviewed. Please refer to the MRAD. REVIEW OF SYSTEMS: GENERAL: No history of weight change, weakness or fevers. SKIN: No bruising, hair changes or rashes. EYES: No blurred, double or loss of vision. NOSE AND THROAT: No history of nosebleeds, hoarseness or sore throat. HEART: No history of palpitations, chest pain or shortness of breath on exertion. LUNGS: Denies cough, hemoptysis, wheezing or shortness of breath. GASTROINTESTINAL: Denies changes in appetite, nausea, vomiting, diarrhea or constipation. GENITOURINARY: No history of frequency, urgency, hesitancy or nocturia. NEUROLOGIC: He complains of mental status change and inability to sleep. PSYCHIATRIC: He complains of depression and wants to . States he has suicidal ideation. States he is tired. ENDOCRINE: No history of heat or cold intolerance, polyuria or polydipsia. EXTREMITIES: Denies muscle weakness, joint pain, pain on walking or stiffness. PHYSICAL EXAMINATION: VITALS: Within normal limits and are stable. GENERAL: No apparent distress. Alert and oriented. HEENT: Head is normocephalic, atraumatic, pupils were equally round and reactive to light and accommodation. NECK: Supple, no JVD, no thyromegaly was noted. LUNGS: Clear to auscultation in all lung [place]ogan without rhonchi or wheezing. HEART: He has tachycardia. ABDOMEN: Soft, nontender. Positive bowel sounds no organomegaly, normal bowel sounds. EXTREMITIES: Without any cyanosis, clubbing, or edema. Pedal pulses intact, Homans sign is negative. NEUROLOGIC: He is anxious and fidgety. PSYCHIATRIC: Normal affect, normal mood. Stable. SKIN: No ulcerations or rashes, good skin turgor, no jaundice. VASCULAR: Good capillary refill, neurovascular bundle appears to be intact. LABORATORY DATA: White count is 5. Drug screen is pending. ASSESSMENT AND PLAN: Suicidal ideation and polysubstance abuse in a middle-aged male who is injecting methamphetamine. The patient has been admitted. We will consult the psychiatric assessment team. IV fluids. Cardiac monitoring. Home meds. DVT prophylaxis. Full code. PROGNOSIS: Guarded. GEREMIAS CARRERO DO DR: CADY/tony JOB#: [id number] / [id number]
[2019-05-29] MEDS ORDERED: ONDANSETRON PF 4 MG/2 ML VIAL. IV PRN (18:00)
[2019-05-29 19:30] VITALS: BP 108/60
[2019-05-29] MEDS: IV NORMAL SALINE 1000ML BAG 1,000 ML IV SCH (20:37)
[2019-05-29 23:00] VITALS: BP 95/53
[2019-05-30 03:00] VITALS: BP 99/52
[2019-05-30] MEDS: IV NORMAL SALINE 1000ML BAG 1,000 ML IV SCH (05:59)
[2019-05-30 07:00] VITALS: BP 105/56
--- NOTE | 2019-05-30 07:35 | EKG ---
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
[2019-05-30] MEDS ORDERED: ACETAMINOPHEN 500 MG TABLET PO PRN (09:00)
[2019-05-30] MEDS ORDERED: THIAMINE 100 MG TABLET. PO SCH (09:00)
[2019-05-30] MEDS ORDERED: chlordiazePOXIDE HCL 25 MG CAPSULE PO PRN (09:00)
[2019-05-30] MEDS ORDERED: ONDANSETRON PF 4 MG/2 ML VIAL. IV PRN (09:00)
[2019-05-30] MEDS ORDERED: NICOTINE 21MG PATCH. TD PRN (09:00)
[2019-05-30] MEDS ORDERED: FOLIC ACID 1 MG TABLET. PO SCH (09:00)
[2019-05-30] MEDS ORDERED: KETOROLAC 15 MG/ML VIAL. IV PRN (09:00)
[2019-05-30] MEDS ORDERED: HYDROcodone/APAP 5/325MG 1 TAB TABLET PO PRN (09:00)
[2019-05-30] MEDS ORDERED: ACETAMINOPHEN/CODEINE 300/30MG TABLET. PO PRN (09:00)
[2019-05-30] MEDS ORDERED: MULTIVITAMIN with MINERAL TABLET. PO SCH (09:00)
[2019-05-30] MEDS ORDERED: diphenhydrAMINE HCL 25 MG CAPSULE PO PRN (09:00)
--- NOTE | 2019-05-30 10:30 | PDOC ---
PROGRESS NOTES Chief Complaint Chief Complaint suicidal ideation Depression NOS Alcoholism Cocaine and methamphetamine use elevated agap History of Present Illness History of Present Illness sitter at bedside Wide awake, ate breakfast good He is guarded based on his demeanor Denies past SI-ER note reviewed, he was scared to do his SI We're waiting for PAT team He is homeless but not interested in shelters He claims he will call his father when he gets discharged Anion gap 15, alcohol level 60s HE claims he is gait steady Plan: Banana bag/CIWA protocol Waiting for PAT team IV fluids and recheck BMP for that elevated Anion gap Continue sitter Counseled on his recreational drug use Maintain sitter for now Other supportive meds No home meds to reconcile Vitals Vitals Vital Signs Date Time Temp Pulse Resp B/P (MAP) Pulse Ox O2 Delivery O2 Flow Rate FiO2 05/30/19 08:00 Room Air 05/30/19 07:00 97.8 78 18 105/56 (72) 97 97.8 05/29/19 14:14 18.0 Physical Exam General: Alert, Oriented X3, Cooperative, No acute distress Heart: Regular rate, Normal S1, Normal S2, No murmurs Lungs: Clear Abdomen: Normal bowel sounds, Soft, No tenderness Extremities: No clubbing, No cyanosis, No edema, Normal pulses Skin: No rashes, No breakdown, No significant lesion Labs LABS Laboratory Tests Test 05/29/19 14:22 White Blood Count 5.3 x10^3/uL (4.0-11.0) Red Blood Count 4.78 x10^6/uL (4.30-5.70) Hemoglobin 15.0 g/dL (13.0-17.5) Hematocrit 43.2 % (39.0-53.0) Mean Corpuscular Volume 91 fL (79-100) Mean Corpuscular Hemoglobin 31 pg (25-35) Mean Corpuscular Hemoglobin Concent 35 g/dL (31-37) Red Cell Distribution Width 13.8 % (11.5-14.5) Platelet Count 277 x10^3/uL (140-400) Neutrophils (%) (Auto) 53 % (31-73) Lymphocytes (%) (Auto) 35 % (24-48) Monocytes (%) (Auto) 10 % (0-9) Eosinophils (%) (Auto) 1 % (0-3) Basophils (%) (Auto) 1 % (0-3) Neutrophils # (Auto) 2.8 x10^3/uL (1.8-7.7) Lymphocytes # (Auto) 1.9 x10^3/uL (1.0-4.8) Monocytes # (Auto) 0.5 x10^3/uL (0.0-1.1) Eosinophils # (Auto) 0.1 x10^3/uL (0.0-0.7) Basophils # (Auto) 0.0 x10^3/uL (0.0-0.2) Sodium Level 142 mmol/L (136-145) Potassium Level 4.0 mmol/L (3.5-5.1) Chloride Level 103 mmol/L (98-107) Carbon Dioxide Level 24 mmol/L (21-32) Anion Gap 15 (6-14) Blood Urea Nitrogen 16 mg/dL (8-26) Creatinine 1.4 mg/dL (0.7-1.3) Estimated GFR (Cockcroft-Gault) 62.3 BUN/Creatinine Ratio 11 (6-20) Glucose Level 97 mg/dL (70-99) Calcium Level 9.2 mg/dL (8.5-10.1) Total Bilirubin 0.7 mg/dL (0.2-1.0) Aspartate Amino Transf (AST/SGOT) 18 U/L (15-37) Alanine Aminotransferase (ALT/SGPT) 23 U/L (16-63) Alkaline Phosphatase 67 U/L (46-116) Total Protein 7.8 g/dL (6.4-8.2) Albumin 4.2 g/dL (3.4-5.0) Albumin/Globulin Ratio 1.2 (1.0-1.7) Salicylates Level < 2.8 mg/dL (2.8-20.0) Salicylate Last Dose Date Unk Salicylate Last Dose Time Unk Acetaminophen Level < 2 mcg/ml (10-30) Acetaminophen Last Dose Date Unk Acetaminophen Last Dose Time Unk Ethyl Alcohol Level 63 mg/dL (0-10) Review of Systems Review of Systems A 14 point ROS was completed with the following noted as positive: Other systems reviewed and negative. \CONSTITUTIONAL: No fever or chills EYES: No recent changes SKIN: No rash or itching CARDIOVASCULAR: No chest pain, syncope, palpitations, or edema RESPIRATORY: No SOB or cough GASTROINTESTINAL: No nausea, vomiting or abdominal pain NEUROLOGICAL: No headaches or weakness ENDOCRINE: No cold or heat intolerance GENITOURINARY: No urgency or frequency of urination MUSCULOSKELETAL: No back pain or joint pain LYMPHATICS: No enlarged lymph nodes PSYCHIATRIC: No anxiety or depression Assessment and Plan Assessmemt and Plan Problems Medical Problems: (1) Substance abuse Status: Acute (2) Suicidal ideation Status: Acute Comment Review of Relevant I have reviewed the following items mira (where applicable) has been applied. Labs Laboratory Tests Test 05/29/19 14:22 White Blood Count 5.3 x10^3/uL (4.0-11.0) Red Blood Count 4.78 x10^6/uL (4.30-5.70) Hemoglobin 15.0 g/dL (13.0-17.5) Hematocrit 43.2 % (39.0-53.0) Mean Corpuscular Volume 91 fL (79-100) Mean Corpuscular Hemoglobin 31 pg (25-35) Mean Corpuscular Hemoglobin Concent 35 g/dL (31-37) Red Cell Distribution Width 13.8 % (11.5-14.5) Platelet Count 277 x10^3/uL (140-400) Neutrophils (%) (Auto) 53 % (31-73) Lymphocytes (%) (Auto) 35 % (24-48) Monocytes (%) (Auto) 10 % (0-9) Eosinophils (%) (Auto) 1 % (0-3) Basophils (%) (Auto) 1 % (0-3) Neutrophils # (Auto) 2.8 x10^3/uL (1.8-7.7) Lymphocytes # (Auto) 1.9 x10^3/uL (1.0-4.8) Monocytes # (Auto) 0.5 x10^3/uL (0.0-1.1) Eosinophils # (Auto) 0.1 x10^3/uL (0.0-0.7) Basophils # (Auto) 0.0 x10^3/uL (0.0-0.2) Sodium Level 142 mmol/L (136-145) Potassium Level 4.0 mmol/L (3.5-5.1) Chloride Level 103 mmol/L (98-107) Carbon Dioxide Level 24 mmol/L (21-32) Anion Gap 15 (6-14) Blood Urea Nitrogen 16 mg/dL (8-26) Creatinine 1.4 mg/dL (0.7-1.3) Estimated GFR (Cockcroft-Gault) 62.3 BUN/Creatinine Ratio 11 (6-20) Glucose Level 97 mg/dL (70-99) Calcium Level 9.2 mg/dL (8.5-10.1) Total Bilirubin 0.7 mg/dL (0.2-1.0) Aspartate Amino Transf (AST/SGOT) 18 U/L (15-37) Alanine Aminotransferase (ALT/SGPT) 23 U/L (16-63) Alkaline Phosphatase 67 U/L (46-116) Total Protein 7.8 g/dL (6.4-8.2) Albumin 4.2 g/dL (3.4-5.0) Albumin/Globulin Ratio 1.2 (1.0-1.7) Salicylates Level < 2.8 mg/dL (2.8-20.0) Salicylate Last Dose Date Unk Salicylate Last Dose Time Unk Acetaminophen Level < 2 mcg/ml (10-30) Acetaminophen Last Dose Date Unk Acetaminophen Last Dose Time Unk Ethyl Alcohol Level 63 mg/dL (0-10) Laboratory Tests Test 05/29/19 14:22 White Blood Count 5.3 x10^3/uL (4.0-11.0) Red Blood Count 4.78 x10^6/uL (4.30-5.70) Hemoglobin 15.0 g/dL (13.0-17.5) Hematocrit 43.2 % (39.0-53.0) Mean Corpuscular Volume 91 fL (79-100) Mean Corpuscular Hemoglobin 31 pg (25-35) Mean Corpuscular Hemoglobin Concent 35 g/dL (31-37) Red Cell Distribution Width 13.8 % (11.5-14.5) Platelet Count 277 x10^3/uL (140-400) Neutrophils (%) (Auto) 53 % (31-73) Lymphocytes (%) (Auto) 35 % (24-48) Monocytes (%) (Auto) 10 % (0-9) Eosinophils (%) (Auto) 1 % (0-3) Basophils (%) (Auto) 1 % (0-3) Neutrophils # (Auto) 2.8 x10^3/uL (1.8-7.7) Lymphocytes # (Auto) 1.9 x10^3/uL (1.0-4.8) Monocytes # (Auto) 0.5 x10^3/uL (0.0-1.1) Eosinophils # (Auto) 0.1 x10^3/uL (0.0-0.7) Basophils # (Auto) 0.0 x10^3/uL (0.0-0.2) Sodium Level 142 mmol/L (136-145) Potassium Level 4.0 mmol/L (3.5-5.1) Chloride Level 103 mmol/L (98-107) Carbon Dioxide Level 24 mmol/L (21-32) Anion Gap 15 (6-14) Blood Urea Nitrogen 16 mg/dL (8-26) Creatinine 1.4 mg/dL (0.7-1.3) Estimated GFR (Cockcroft-Gault) 62.3 BUN/Creatinine Ratio 11 (6-20) Glucose Level 97 mg/dL (70-99) Calcium Level 9.2 mg/dL (8.5-10.1) Total Bilirubin 0.7 mg/dL (0.2-1.0) Aspartate Amino Transf (AST/SGOT) 18 U/L (15-37) Alanine Aminotransferase (ALT/SGPT) 23 U/L (16-63) Alkaline Phosphatase 67 U/L (46-116) Total Protein 7.8 g/dL (6.4-8.2) Albumin 4.2 g/dL (3.4-5.0) Albumin/Globulin Ratio 1.2 (1.0-1.7) Salicylates Level < 2.8 mg/dL (2.8-20.0) Salicylate Last Dose Date Unk Salicylate Last Dose Time Unk Acetaminophen Level < 2 mcg/ml (10-30) Acetaminophen Last Dose Date Unk Acetaminophen Last Dose Time Unk Ethyl Alcohol Level 63 mg/dL (0-10) Medications Current Medications Sodium Chloride 1,000 ml @ 1,000 mls/hr 1X ONCE IV Last administered on 05/29/19at 14:36; Start 05/29/19 at 14:30; Stop 05/29/19 at 15:29; Status DC Ondansetron HCl (Zofran) 4 mg PRN Q8HRS PRN IV NAUSEA/VOMITING; Start 05/29/19 at 18:00; Stop 05/30/19 at 08:57; Status DC Sodium Chloride 1,000 ml @ 100 mls/hr Q10H IV Last administered on 05/30/19at 05:59; Start 05/29/19 at 18:00; Stop 05/30/19 at 17:59 Ondansetron HCl (Zofran) 4 mg PRN Q6HRS PRN IV NAUSEA/VOMITING; Start 05/30/19 at 09:00 Chlordiazepoxide (Librium) 25 mg PRN Q6HRS PRN PO ANXIETY / AGITATION; Start 05/30/19 at 09:00 Acetaminophen (Tylenol) 500 mg PRN Q6HRS PRN PO MILD PAIN / TEMP; Start 05/30/19 at 09:00 Acetaminophen/ Codeine Phosphate (Tylenol #3) 1 tab PRN Q6HRS PRN PO MODERATE PAIN; Start 05/30/19 at 09:00 Acetaminophen/ Hydrocodone Bitart (Lortab 5/325) 1 tab PRN Q4HRS PRN PO SEVERE PAIN; Start 05/30/19 at 09:00 Ketorolac Tromethamine (Toradol 15mg Vial) 15 mg PRN Q6HRS PRN IV PAIN; Start 05/30/19 at 09:00; Stop 06/04/19 at 08:59 Diphenhydramine HCl (Benadryl) 25 mg PRN QHS PRN PO INSOMNIA; Start 05/30/19 at 09:00 Nicotine (Nicoderm Cq 21mg) 1 patch PRN DAILY PRN TD SMOKING CESSATION Last administered on 05/30/19at 09:59; Start 05/30/19 at 09:00 Multivitamins (Thera M Plus) 1 tab DAILY PO Last administered on 05/30/19at 09:58; Start 05/30/19 at 09:00 Thiamine Mononitrate (Vitamin B-1) 100 mg DAILY PO Last administered on 05/03 07/21at 09:58; Start 05/30/19 at 09:00 Folic Acid (Folic Acid) 1 mg DAILY PO Last administered on 05/30/19at 09:58; Start 05/30/19 at 09:00 Active Scripts Active No Active Prescriptions or Reported Medications Vitals/I & O Vital Sign - Last 24 Hours 05/29/19 05/29/19 05/29/19 05/29/19 14:09 14:14 15:10 15:44 Temp 97.9 97.9 Pulse 87 88 74 74 Resp 18 17 14 15 B/P (MAP) 138/77 (97) 138/77 (97) 112/50 (70) 105/52 (69) Pulse Ox 100 98 98 97 O2 Delivery Room Air Room Air Room Air Room Air O2 Flow Rate 18.0 05/29/19 05/29/19 05/29/19 05/29/19 16:14 16:44 17:14 17:44 Pulse 72 72 68 66 Resp 15 15 15 14 B/P (MAP) 110/53 (72) 108/43 (64) 108/47 (67) 103/44 (63) Pulse Ox 97 97 99 100 O2 Delivery Room Air Room Air Room Air Room Air 05/29/19 05/29/19 05/29/19 05/30/19 18:14 19:30 23:00 03:00 Temp 97.5 97.7 97.6 97.5 97.7 97.6 Pulse 66 65 55 63 Resp 15 18 16 18 B/P (MAP) 108/46 (66) 108/60 (76) 95/53 (67) 99/52 (68) Pulse Ox 98 100 97 100 O2 Delivery Room Air 05/30/19 05/30/19 07:00 08:00 Temp 97.8 97.8 Pulse 78 Resp 18 B/P (MAP) 105/56 (72) Pulse Ox 97 O2 Delivery Room Air Room Air Intake and Output 05/29/19 05/29/19 05/30/19 14:59 22:59 06:59 Intake Total 2720 ml 120 ml Output Total 0 ml Balance 2720 ml 120 ml SHELBY MARTINS MD May 30, 2019 10:30
[2019-05-30] MEDS ORDERED: CHLO1CAP PO (10:32)
[2019-05-30] MEDS ORDERED: THIA100T22 PO (10:32)
[2019-05-30] MEDS ORDERED: FOLI1TAB16 PO (10:32)
--- NOTE | 2019-05-30 10:35 | PDOC3 ---
Discharge Summary Visit Information Date of Admission: May 29, 2019 Date of Discharge: May 30, 2019 Admitting Diagnosis Comment: Alcoholism SI Elevated anion gap Methamphetamine and cocaine use Final Diagnosis Problems Medical Problems: (1) Substance abuse Status: Acute (2) Suicidal ideation Status: Acute Brief Hospital Course Allergies Allergies Coded Allergies Type Severity Reaction Last Updated Verified Penicillins Allergy Intermediate Rash 03/02/14 Yes Vital Signs Vital Signs Date Time Temp Pulse Resp B/P (MAP) Pulse Ox O2 Delivery O2 Flow Rate FiO2 05/30/19 08:00 Room Air 05/30/19 07:00 97.8 78 18 105/56 (72) 97 97.8 05/29/19 14:14 18.0 Lab Results Laboratory Tests Test 05/29/19 14:22 White Blood Count 5.3 x10^3/uL (4.0-11.0) Red Blood Count 4.78 x10^6/uL (4.30-5.70) Hemoglobin 15.0 g/dL (13.0-17.5) Hematocrit 43.2 % (39.0-53.0) Mean Corpuscular Volume 91 fL (79-100) Mean Corpuscular Hemoglobin 31 pg (25-35) Mean Corpuscular Hemoglobin Concent 35 g/dL (31-37) Red Cell Distribution Width 13.8 % (11.5-14.5) Platelet Count 277 x10^3/uL (140-400) Neutrophils (%) (Auto) 53 % (31-73) Lymphocytes (%) (Auto) 35 % (24-48) Monocytes (%) (Auto) 10 % (0-9) Eosinophils (%) (Auto) 1 % (0-3) Basophils (%) (Auto) 1 % (0-3) Neutrophils # (Auto) 2.8 x10^3/uL (1.8-7.7) Lymphocytes # (Auto) 1.9 x10^3/uL (1.0-4.8) Monocytes # (Auto) 0.5 x10^3/uL (0.0-1.1) Eosinophils # (Auto) 0.1 x10^3/uL (0.0-0.7) Basophils # (Auto) 0.0 x10^3/uL (0.0-0.2) Sodium Level 142 mmol/L (136-145) Potassium Level 4.0 mmol/L (3.5-5.1) Chloride Level 103 mmol/L (98-107) Carbon Dioxide Level 24 mmol/L (21-32) Anion Gap 15 (6-14) Blood Urea Nitrogen 16 mg/dL (8-26) Creatinine 1.4 mg/dL (0.7-1.3) Estimated GFR (Cockcroft-Gault) 62.3 BUN/Creatinine Ratio 11 (6-20) Glucose Level 97 mg/dL (70-99) Calcium Level 9.2 mg/dL (8.5-10.1) Total Bilirubin 0.7 mg/dL (0.2-1.0) Aspartate Amino Transf (AST/SGOT) 18 U/L (15-37) Alanine Aminotransferase (ALT/SGPT) 23 U/L (16-63) Alkaline Phosphatase 67 U/L (46-116) Total Protein 7.8 g/dL (6.4-8.2) Albumin 4.2 g/dL (3.4-5.0) Albumin/Globulin Ratio 1.2 (1.0-1.7) Salicylates Level < 2.8 mg/dL (2.8-20.0) Salicylate Last Dose Date Unk Salicylate Last Dose Time Unk Acetaminophen Level < 2 mcg/ml (10-30) Acetaminophen Last Dose Date Unk Acetaminophen Last Dose Time Unk Ethyl Alcohol Level 63 mg/dL (0-10) Laboratory Tests Test 05/29/19 14:22 White Blood Count 5.3 x10^3/uL (4.0-11.0) Red Blood Count 4.78 x10^6/uL (4.30-5.70) Hemoglobin 15.0 g/dL (13.0-17.5) Hematocrit 43.2 % (39.0-53.0) Mean Corpuscular Volume 91 fL (79-100) Mean Corpuscular Hemoglobin 31 pg (25-35) Mean Corpuscular Hemoglobin Concent 35 g/dL (31-37) Red Cell Distribution Width 13.8 % (11.5-14.5) Platelet Count 277 x10^3/uL (140-400) Neutrophils (%) (Auto) 53 % (31-73) Lymphocytes (%) (Auto) 35 % (24-48) Monocytes (%) (Auto) 10 % (0-9) Eosinophils (%) (Auto) 1 % (0-3) Basophils (%) (Auto) 1 % (0-3) Neutrophils # (Auto) 2.8 x10^3/uL (1.8-7.7) Lymphocytes # (Auto) 1.9 x10^3/uL (1.0-4.8) Monocytes # (Auto) 0.5 x10^3/uL (0.0-1.1) Eosinophils # (Auto) 0.1 x10^3/uL (0.0-0.7) Basophils # (Auto) 0.0 x10^3/uL (0.0-0.2) Sodium Level 142 mmol/L (136-145) Potassium Level 4.0 mmol/L (3.5-5.1) Chloride Level 103 mmol/L (98-107) Carbon Dioxide Level 24 mmol/L (21-32) Anion Gap 15 (6-14) Blood Urea Nitrogen 16 mg/dL (8-26) Creatinine 1.4 mg/dL (0.7-1.3) Estimated GFR (Cockcroft-Gault) 62.3 BUN/Creatinine Ratio 11 (6-20) Glucose Level 97 mg/dL (70-99) Calcium Level 9.2 mg/dL (8.5-10.1) Total Bilirubin 0.7 mg/dL (0.2-1.0) Aspartate Amino Transf (AST/SGOT) 18 U/L (15-37) Alanine Aminotransferase (ALT/SGPT) 23 U/L (16-63) Alkaline Phosphatase 67 U/L (46-116) Total Protein 7.8 g/dL (6.4-8.2) Albumin 4.2 g/dL (3.4-5.0) Albumin/Globulin Ratio 1.2 (1.0-1.7) Salicylates Level < 2.8 mg/dL (2.8-20.0) Salicylate Last Dose Date Unk Salicylate Last Dose Time Unk Acetaminophen Level < 2 mcg/ml (10-30) Acetaminophen Last Dose Date Unk Acetaminophen Last Dose Time Unk Ethyl Alcohol Level 63 mg/dL (0-10) Brief Hospital Course Mr. Au is a 23 old white male admitted for SI but too scared to do it, elevated alcohol level 60s with positive cocaine and methamphetamine on UDS. Pat teamto assess the patient Elevated anion gap 15, gait steady. Looking good 2notes today If cleared By pat team, then home today with Librium , folate, etc all on chart Patient seen and examined Consults performed pat Procedures performed none Discharge Information Condition at Discharge: Improved, Stable Disposition/Orders: D/C to Home Scheduled Chlordiazepoxide/Clidinium Br (Librax Capsule) 1 Each Capsule, 1 CAP PO TID for alcohol withdrawal, #60 Ref 3 Prescribed by: SHELBY MARTINS on 05/30/19 1032 Folic Acid (Folic Acid) 1 Mg Tablet, 1 TAB PO DAILY for mvi, #90 Ref 1 Prescribed by: SHELBY MARTINS on 05/30/19 1032 Thiamine Mononitrate (Vitamin B-1) 100 Mg Tablet, 100 MG PO DAILY05 for mvi, #30 Prescribed by: SHELBY MARTISN on 05/30/19 1032 SHELBY MARTINS MD May 30, 2019 10:35
[2019-05-30 10:45] LABS: BILIRUBIN,URINE SMALL (NEG); CLARITY,URINE CLEAR; COLOR,URINE YELLOW; NITRITE,URINE NEGATIVE (NEG); PROTEIN,URINE NEGATIVE (NEG-TRACE); UROBILINOGEN,URINE 0.2 mg/dL (0.2 mg/dL)
[2019-05-30 10:52] LABS: BACTERIA,URINE 0 /HPF (0-FEW); RBC,URINE 0 /HPF (0-2)
[2019-05-30 10:53] LABS: AMPHETAMINE/METHAMPHETAMINE POS (NEG); BARBITURATES NEG (NEG); BENZODIAZEPINES NEG (NEG); CANNABINOIDS NEG (NEG); COCAINE NEG (NEG); METHADONE NEG (NEG); OPIATES NEG (NEG); PHENCYCLIDINE NEG (NEG)
[2019-05-30 11:03] VITALS: BP 110/64
--- NOTE | 2019-05-30 14:12 | NUR ---
pt requested staff call his brother Tony to ask if he could visit pt while in hospital. Pt also requested that Tony not tell anyone else. pt did allow this repairer typewriter to inform Tony of the reason for his admission. Tony stated that he would keep it confidential but that he would not be able to visit. Pt understanding. Tony's number is
--- NOTE | 2019-05-30 14:32 | NUR ---
EDELMIRA consulted for PAT team destinee Lynn here to see pt at this time. Addendum: 05/30/19 at 1626 by LEO HICKEY Pt currently on the phone with Adult detox unit. Pt is able to go to [facility] if they accept him. Discussed with
[2019-05-30 14:37] VITALS: BP 101/60
--- NOTE | 2019-05-30 18:27 | NUR ---
Pt left the unit at approx 1825 via cab. Pt stable upon discharge. IV removed, no complications. Any additional questions or concerns were addressed upon discharge.
== END 2019-05-30 18:25 | disposition home or self-care (01) | DRG 897 ==
LOC: ER 14:09 → 5 SOUTH 18:00 → ER 18:55
PROVIDERS: ADMIT Internal Medicine; ATTEND Internal Medicine
DX: F15.10 Other stimulant abuse, uncomplicated (principal); R45.851 Suicidal ideations; F14.10 Cocaine abuse, uncomplicated; F10.20 Alcohol dependence, uncomplicated; Y90.0 Blood alcohol level of less than 20 mg/100 ml; F17.200 Nicotine dependence, unspecified, uncomplicated; F31.9 Bipolar disorder, unspecified; Z59.0 Homelessness; F41.9 Anxiety disorder, unspecified; Z88.0 Allergy status to penicillin; Z90.49 Acquired absence of other specified parts of digestive tract
CPT/HCPCS: 36415; 80053; 80307; 80329; 81001; 85025; 93005; 99406; G0480; J2060; J7030

== ENCOUNTER 2019-06-08 14:54 | Emergency (ER) | payer OTHER ==
[~2019-06-08] VITALS: Ht 188 cm; Wt 86.2 kg
[~2019-06-08 14:54] MED LIST changes: +CHLO1CAP PO; +FOLI1TAB16 PO; +THIA100T22 PO
[2019-06-08 15:52] VITALS: BP 131/69
[2019-06-08] MEDS ORDERED: DEXAMETHASONE 4 MG TABLET PO STA (15:55)
--- NOTE | 2019-06-08 16:00 | PHYS DOC ---
Past Medical History Past Medical History: No Pertinent History Additional Past Medical Histor: HEARS VOICES,TOOK ANTIPSYCHOTIC MEDS IN PAST Past Surgical History: No Surgical History Alcohol Use: Occasionally Drug Use: None Adult General Chief Complaint Chief Complaint: SKIN RASH/ABSCESS [facility] Patient is a 23 year old male who presents with a rash has been ongoing for 2 days. The location of the rashes the face, groin, bilateral arms. The patient states that he was working in the yard 2 days ago and thinks he was near some poison evelyn. Denies any pain but states it has been itching. Has been trying Benadryl and itching lotions over the counter. Review of Systems Review of Systems Constitutional: Denies fever or chills [] Eyes: Denies change in visual acuity, redness, or eye pain [] HENT: Denies nasal congestion or sore throat [] Respiratory: Denies cough or shortness of breath [] Cardiovascular: No additional information not addressed in HPI [] GI: Denies abdominal pain, nausea, vomiting, bloody stools or diarrhea [] : Denies dysuria or hematuria [] Musculoskeletal: Denies back pain or joint pain [] Integument: Reports rash to face, groin, bilateral arms. Neurologic: Denies headache, focal weakness or sensory changes [] Endocrine: Denies polyuria or polydipsia [] Complete systems were reviewed and found to be within normal limits, except as documented in this note. Allergies Allergies Allergies Coded Allergies Type Severity Reaction Last Updated Verified Penicillins Allergy Intermediate Rash 03/02/14 Yes Physical Exam Physical Exam Constitutional: Well developed, well nourished, no acute distress, non-toxic appearance. [] HENT: Normocephalic, atraumatic, bilateral external ears normal, oropharynx moist, no oral exudates, nose normal. [] Eyes: PERRLA, EOMI, conjunctiva normal, no discharge. [] Neck: Normal range of motion, no tenderness, supple, no stridor. [] Cardiovascular:Heart rate regular rhythm, no murmur [] Lungs & Thorax: Bilateral breath sounds clear to auscultation [] Abdomen: Bowel sounds normal, soft, no tenderness, no masses, no pulsatile masses. [] Skin: erythema and papular rash to arms, face, and groin. Back: No tenderness, no CVA tenderness. [] Extremities: No tenderness, no cyanosis, no clubbing, ROM intact, no edema. [] Neurologic: Alert and oriented X 3, normal motor function, normal sensory function, no focal deficits noted. [] Psychologic: Affect normal, judgement normal, mood normal. [] EKG EKG [] Radiology/Procedures Radiology/Procedures [] Course & Med Decision Making Course & Med Decision Making Pertinent Labs and Imaging studies reviewed. (See chart for details) Appears to have poison evelyn. Will give Dexamethasone in ER and have continue treatment at home with Calamine lotion. Dragon Disclaimer Dragon Disclaimer This electronic medical record was generated, in whole or in part, using a voice recognition dictation system. Departure Departure Impression: Primary Impression: Poison evelyn dermatitis Disposition: HOME, SELF-CARE Condition: STABLE Referrals: NO PCP (PCP) Patient Instructions: Poison Evelyn, [id number] Additional Instructions: Thank you for visiting [facility]. We appreciate you trusting us with your care. If any additional problems come up don't hesitate to return to visit us. Please follow up with your primary care provider so they can plan additional care if needed and know about the problem that you had. If symptoms worsen come back to the Emergency Department. Any concerning symptoms that start such as chest pain, shortness of air, weakness or numbness on one side of the body, running high fevers or any other concerning symptoms return to the ER. Please continue to use Calamine lotion at home. PRANAV MARTIN APRN Jun 08, 2019 16:00
== END 2019-06-08 16:09 | disposition home or self-care (01) ==
LOC: ER 14:54
DX: L23.7 Allergic contact dermatitis due to plants, except food (principal); Z88.0 Allergy status to penicillin
CPT/HCPCS: 99282; J8540

== ENCOUNTER 2019-08-26 09:12 | Emergency (ER) | payer OTHER ==
[~2019-08-26] VITALS: Ht 185.4 cm; Wt 87.5 kg
[2019-08-26 09:24] VITALS: BP 199/88
[2019-08-26 10:59] LABS: BASO % 1 % (0-3); EOS # 0.2 x10^3/uL (0.0-0.7); EOS % 2 % (0-3); HEMATOCRIT 47.2 % (39.0-53.0); HEMOGLOBIN 16.2 g/dL (13.0-17.5); LYMPH # 1.5 x10^3/uL (1.0-4.8); LYMPH % 18 % (24-48); MEAN CORPUSCULAR HEMOGLOBIN 31 pg (25-35); MEAN CORPUSCULAR HGB CONC 34 g/dL (31-37); MEAN CORPUSCULAR VOLUME 91 fL (79-100); MONO # 0.7 x10^3/uL (0.0-1.1); MONO % 9 % (0-9); NEUT # 5.7 x10^3/uL (1.8-7.7); NEUT % 70 % (31-73); PLATELET COUNT 217 x10^3/uL (140-400); RED BLOOD COUNT 5.17 x10^6/uL (4.30-5.70); RED CELL DISTRIBUTION WIDTH 13.8 % (11.5-14.5); WHITE BLOOD COUNT 8.2 x10^3/uL (4.0-11.0)
[2019-08-26 11:03] LABS: CALCIUM 10.1 mg/dL (8.5-10.1); CREATININE 1.1 mg/dL (0.7-1.3); GFR 81.6; POTASSIUM 4.9 mmol/L (3.5-5.1)
[2019-08-26 11:04] LABS: BILIRUBIN,URINE NEGATIVE (NEG); CLARITY,URINE CLEAR; COLOR,URINE YELLOW; NITRITE,URINE NEGATIVE (NEG); PROTEIN,URINE NEGATIVE (NEG-TRACE); UROBILINOGEN,URINE 0.2 mg/dL (0.2 mg/dL)
[2019-08-26 11:09] LABS: ALBUMIN 5.1 g/dL (3.4-5.0); ALBUMIN/GLOBULIN RATIO 1.3 (1.0-1.7); MAGNESIUM 1.8 mg/dL (1.8-2.4); TOTAL BILIRUBIN 1.1 mg/dL (0.2-1.0); TOTAL PROTEIN 9.1 g/dL (6.4-8.2)
[2019-08-26 11:11] LABS: BACTERIA,URINE 0 /HPF (0-FEW); RBC,URINE 0 /HPF (0-2); SQUAMOUS EPITHELIAL CELL,UR FEW /LPF; WBC,URINE 0 /HPF (0-4)
[2019-08-26 11:15] LABS: BARBITURATES NEG (NEG); BENZODIAZEPINES NEG (NEG); CANNABINOIDS NEG (NEG); COCAINE NEG (NEG); METHADONE NEG (NEG); OPIATES NEG (NEG); PHENCYCLIDINE NEG (NEG)
[2019-08-26 11:20] LABS: ACETAMIN < 2 mcg/ml (10-30); ETHANOL < 10 mg/dL (0-10); SALIC < 2.8 mg/dL (2.8-20.0)
[2019-08-26 11:21] LABS: AMPHETAMINE/METHAMPHETAMINE NEG (NEG)
--- NOTE | 2019-08-26 11:37 | PHYS DOC ---
Past Medical History Past Medical History: No Pertinent History Additional Past Medical Histor: HEARS VOICES,TOOK ANTIPSYCHOTIC MEDS IN PAST (KATRIN PARRA APRN) Past Surgical History: No Surgical History (KATRIN PARRA APRN) Alcohol Use: Occasionally Drug Use: None (KATRIN PARRA APRN) Attending Signature I have participated in the care of this patient and I have reviewed and agree with all pertinent clinical information above including history, exam, and recommendations. (ELA VU MD) Adult General Chief Complaint Chief Complaint: HEAD INJURY/TRAUMA HPI HPI Patient is a 24 year old male who presents to the emergency department with complaints of increased anxiety and worry about a possible concussion. Patient states that he drinks alcohol daily, 12 natty tall boys of malt liquor every day. His roommates told him that he passed out a week ago when he was drinking causing him to fall and hit his head. Patient denies ever having any scalp swelling, nausea, vomiting, vision changes, or bruising to his eyes or behind his ears. He denies any nose bleeds or drainage from his ears. Pt denies any pain at this time. He reports severe anxiety and a desire to stop drinking alcohol. Pt denies any suicidal or homicidal ideations. (KATRIN PARRA APRN) Review of Systems Review of Systems Constitutional: Denies fever or chills [] Eyes: Denies change in visual acuity, redness, or eye pain [] HENT: Denies nasal congestion or sore throat [] Respiratory: Denies cough or shortness of breath [] Cardiovascular: No additional information not addressed in HPI [] GI: Denies abdominal pain, nausea, vomiting, or diarrhea [] : Denies dysuria or hematuria [] Musculoskeletal: Denies back pain or joint pain [] Integument: Denies rash or skin lesions [] Neurologic: Denies headache, focal weakness or sensory changes [] Psychiatric:See HPI All other systems were reviewed and found to be within normal limits, except as documented in this note. (KATRIN PARRA APRN) Allergies Allergies Allergies Coded Allergies Type Severity Reaction Last Updated Verified Penicillins Allergy Intermediate Rash 03/02/14 Yes (ELA VU MD) Physical Exam Physical Exam Constitutional: Well developed, well nourished, no acute distress, non-toxic appearance. [] HENT: Normocephalic, atraumatic, bilateral external ears normal, bilateral TMs normal, oropharynx moist, no oral exudates, nose normal. [] Eyes: PERRLA, EOMI, conjunctiva normal, no discharge. [] Neck: Normal range of motion, no tenderness, supple, no stridor. [] Cardiovascular:Heart rate regular rhythm, no murmur [] Lungs & Thorax: Bilateral breath sounds clear to auscultation [] Skin: Warm, dry, no erythema, no rash. [] Back: No tenderness, no CVA tenderness. [] Extremities: No tenderness, no cyanosis, no clubbing, ROM intact, no edema. [] Neurologic: Alert and oriented X 3, normal motor function, normal sensory func tion, no focal deficits noted. [] Psychologic: Affect anxious, judgement normal, mood normal. [] (KATRIN PARRA APRN) Current Patient Data Vital Signs Vital Signs Date Time Temp Pulse Resp B/P (MAP) Pulse Ox O2 Delivery O2 Flow Rate FiO2 08/26/19 09:24 98.6 92 17 199/88 (125) 99 Room Air 98.6 (ELA VU MD) Lab Values Laboratory Tests Test 08/26/19 10:37 08/26/19 10:48 White Blood Count 8.2 x10^3/uL (4.0-11.0) Red Blood Count 5.17 x10^6/uL (4.30-5.70) Hemoglobin 16.2 g/dL (13.0-17.5) Hematocrit 47.2 % (39.0-53.0) Mean Corpuscular Volume 91 fL (79-100) Mean Corpuscular Hemoglobin 31 pg (25-35) Mean Corpuscular Hemoglobin Concent 34 g/dL (31-37) Red Cell Distribution Width 13.8 % (11.5-14.5) Platelet Count 217 x10^3/uL (140-400) Neutrophils (%) (Auto) 70 % (31-73) Lymphocytes (%) (Auto) 18 % (24-48) L Monocytes (%) (Auto) 9 % (0-9) Eosinophils (%) (Auto) 2 % (0-3) Basophils (%) (Auto) 1 % (0-3) Neutrophils # (Auto) 5.7 x10^3/uL (1.8-7.7) Lymphocytes # (Auto) 1.5 x10^3/uL (1.0-4.8) Monocytes # (Auto) 0.7 x10^3/uL (0.0-1.1) Eosinophils # (Auto) 0.2 x10^3/uL (0.0-0.7) Basophils # (Auto) 0.0 x10^3/uL (0.0-0.2) Sodium Level 138 mmol/L (136-145) Potassium Level 4.9 mmol/L (3.5-5.1) Chloride Level 99 mmol/L (98-107) Carbon Dioxide Level 25 mmol/L (21-32) Anion Gap 14 (6-14) Blood Urea Nitrogen 16 mg/dL (8-26) Creatinine 1.1 mg/dL (0.7-1.3) Estimated GFR (Cockcroft-Gault) 81.6 BUN/Creatinine Ratio 15 (6-20) Glucose Level 91 mg/dL (70-99) Calcium Level 10.1 mg/dL (8.5-10.1) Magnesium Level 1.8 mg/dL (1.8-2.4) Total Bilirubin 1.1 mg/dL (0.2-1.0) H Aspartate Amino Transferase (AST) 16 U/L (15-37) Alanine Aminotransferase (ALT) 14 U/L (16-63) L Alkaline Phosphatase 81 U/L (46-116) Total Protein 9.1 g/dL (6.4-8.2) H Albumin 5.1 g/dL (3.4-5.0) H Albumin/Globulin Ratio 1.3 (1.0-1.7) Salicylates Level < 2.8 mg/dL (2.8-20.0) L Salicylate Last Dose Date Unknown Salicylate Last Dose Time Unknown Acetaminophen Level < 2 mcg/ml (10-30) L Acetaminophen Last Dose Date Unknown Acetaminophen Last Dose Time Unknown Ethyl Alcohol Level < 10 mg/dL (0-10) Urine Collection Type Unknown Urine Color Yellow Urine Clarity Clear Urine pH 6.0 Urine Specific Covert 1.015 Urine Protein Negative mg/dL (NEG-TRACE) Urine Glucose (UA) Negative mg/dL (NEG) Urine Ketones (Stick) 40 mg/dL (NEG) Urine Blood Negative (NEG) Urine Nitrite Negative (NEG) Urine Bilirubin Negative (NEG) Urine Urobilinogen Dipstick 0.2 mg/dL (0.2 mg/dL) Urine Leukocyte Esterase Negative (NEG) Urine RBC 0 /HPF (0-2) Urine WBC 0 /HPF (0-4) Urine Squamous Epithelial Cells Few /LPF Urine Bacteria 0 /HPF (0-FEW) Urine Opiates Screen Neg (NEG) Urine Methadone Screen Neg (NEG) Urine Barbiturates Neg (NEG) Urine Phencyclidine Screen Neg (NEG) Urine Amphetamine/Methamphetamine Neg (NEG) Urine Benzodiazepines Screen Neg (NEG) Urine Cocaine Screen Neg (NEG) Urine Cannabinoids Screen Neg (NEG) Urine Ethyl Alcohol Neg (NEG) Laboratory Tests 08/26/19 10:37 Laboratory Tests 08/26/19 10:37 (ELA VU MD) EKG EKG [] (KATRIN PARRA APRN) Radiology/Procedures Radiology/Procedures 1110- [place] with the PAT team at bedside talking with patient. [] (KATRIN PARRA APRN) Course & Med Decision Making Course & Med Decision Making Pertinent Labs and Imaging studies reviewed. (See chart for details) [] (KATRIN PARRA APRN) Dragon Disclaimer Dragon Disclaimer This electronic medical record was generated, in whole or in part, using a voice recognition dictation system. (KATRIN PARRA APRN) Departure Departure Impression: Primary Impression: Alcoholism Additional Impression: Anxiety about health Disposition: 01 HOME, SELF-CARE Condition: STABLE Referrals: NO PCP (PCP) Patient Instructions: Alcohol Withdrawal, [id number], Anxiety and Panic Attacks, [id number] Additional Instructions: Continue taking the Lexapro as prescribed by your doctor. Use the resources given to you by [facility] for further treatment of your anxiety and help with sobriety. Return to the ER if your symptoms worsen. Problem Qualifiers KATRIN PARRA APRN Aug 26, 2019 11:37 ELA VU MD Aug 27, 2019 06:17
== END 2019-08-26 12:23 | disposition home or self-care (01) ==
LOC: ER 09:12
DX: F10.20 Alcohol dependence, uncomplicated (principal); F41.9 Anxiety disorder, unspecified; Y90.0 Blood alcohol level of less than 20 mg/100 ml; Z88.0 Allergy status to penicillin
CPT/HCPCS: 36415; 80053; 80307; 80329; 81001; 83735; 85025; 99284; G0480

== ENCOUNTER 2019-09-13 08:38 | Emergency (ER) | payer OTHER ==
[~2019-09-13] VITALS: Ht 185.4 cm; Wt 86.2 kg
[2019-09-13 08:42] VITALS: BP 136/108
--- NOTE | 2019-09-13 08:47 | PHYS DOC ---
Past Medical History Past Medical History: No Pertinent History Additional Past Medical Histor: HEARS VOICES,TOOK ANTIPSYCHOTIC MEDS IN PAST Past Surgical History: No Surgical History Alcohol Use: Occasionally Drug Use: None Adult General Chief Complaint Chief Complaint: KNEE INJURY HPI HPI Patient is a 24 year old male who was brought here by EMS for evaluation of right knee pain and swelling. Patient said about 8 days ago he was moving stuffs, accidentally hit his right knee against a concrete step. Patient was seen at [facility] collision then, x-ray was negative per patient. Patient was told to take Tylenol as needed for pain, put ice, patient said the swelling and the pain getting worse. He denies any fever, no trouble breathing, no chest pain. aLL OTHER ros IS NEGATIVE UNLESS OTHERWISE NOTED IN hpi Review of Systems Review of Systems See above Current Medications Current Medications Current Medications Medications (Trade) Dose Ordered Sig/Lanette Start Time Stop Time Status Last Admin Dose Admin Ibuprofen (Motrin) 800 mg 1X ONCE 09/13/19 09:00 09/13/19 09:01 DC 09/13/19 09:00 800 MG Ketorolac Tromethamine (Toradol Im) 60 mg 1X ONCE 09/13/19 09:15 09/13/19 09:16 DC 09/13/19 09:16 60 MG Methylprednisolone Sodium Succinate (SOLU-Medrol 125MG VIAL) 125 mg 1X ONCE 09/13/19 09:15 09/13/19 09:16 DC 09/13/19 09:17 125 MG Allergies Allergies Allergies Coded Allergies Type Severity Reaction Last Updated Verified Penicillins Allergy Intermediate Rash 03/02/14 Yes Physical Exam Physical Exam See above Constitutional: Well developed, well nourished, no acute distress, non-toxic appearance. [] HENT: Normocephalic, atraumatic, bilateral external ears normal, oropharynx moist, no oral exudates, nose normal. [] Eyes: PERRLA, EOMI, conjunctiva normal, no discharge. [] Neck: Normal range of motion, no tenderness, supple, no stridor. [] Cardiovascular:Heart rate regular rhythm, no murmur [] Lungs & Thorax: Bilateral breath sounds clear to auscultation [] Abdomen: Bowel sounds normal, soft, no tenderness, no masses, no pulsatile masses. [] Skin: Warm, dry, no erythema, no rash. [] Back: No tenderness, no CVA tenderness. [] Extremities: RIGHT KNEE IS SWOLLEN, TENDER TO PALPATION, RANGE OF MOTION IS LIMITED DUE TO PAIN AND SWELLING. NO OPEN WOUND, GOOD DISTAL PULSE. Neurologic: Alert and oriented X 3, normal motor function, normal sensory function, no focal deficits noted. [] Psychologic: Affect normal, judgement normal, mood normal. [] Current Patient Data Vital Signs Vital Signs Date Time Temp Pulse Resp B/P (MAP) Pulse Ox O2 Delivery O2 Flow Rate FiO2 09/13/19 08:42 98.7 94 20 136/108 (117) 97 Room Air 98.7 EKG EKG [] Radiology/Procedures Radiology/Procedures [][facility] [address] [place] [address] IMAGING REPORT Signed PATIENT: CESAR BARRIOS AACCOUNT: [id number] : 1995 LOCATION: ER AGE: 24 SEX: M EXAM STATUS: PRE ER ORD. PHYSICIAN: DEBBEI WEI DO REASON: RIGHT KNEE INJURED 8 DAYS AGO, HIT CONCRETE STEP, SWELLING AND PAIN PROCEDURE: KNEE RIGHT 3V Right knee 3 views. HISTORY: Pain and swelling, recent injury 3 views were taken of the right knee. There is a joint effusion. There is soft tissue swelling. There is no fracture or acute osseous abnormality. MRI may be of benefit. IMPRESSION: 1. Prominent joint effusion. 2. No acute fracture of the right knee. Electronically signed by: Erlin Cruz MD (09/13/2019 8:59 AM) [id number] DICTATED and SIGNED BY: ERLIN CRUZ MD DATE: 09/13/19 0859 Course & Med Decision Making Course & Med Decision Making Pertinent Labs and Imaging studies reviewed. (See chart for details) KNEE IMMOBILIZER AND CRUTCHES WERE GIVEN TO PATIENT. HE WILL NEED TO FOLLOW UP WITH ORTHOPEDIC SURGEON FOR OUTPATIENT EVALUATION. Dragon Disclaimer Dragon Disclaimer This electronic medical record was generated, in whole or in part, using a voice recognition dictation system. Departure Departure Impression: Primary Impression: Prepatellar bursitis of right knee Disposition: HOME, SELF-CARE Condition: STABLE Referrals: CESAR CHAIDEZ II, MD FOLLOW UP WITH THIS ORTHOPEDIC SURGEON FOR FURTHER EVALUATION AND TREATMENT Patient Instructions: Bursitis Scripts Prednisone (PREDNISONE) 20 Mg Tablet 1 TAB PO DAILY, #10 TAB Prov: DEBBIE WEI DO 09/13/19 Naproxen (NAPROXEN) 500 Mg Tablet. 1 TAB PO BID PRN for PAIN, #30 TAB Prov: DEBBIE WEI DO 09/13/19 DEBBIE WEI DO Sep 13, 2019 08:47
[2019-09-13] MEDS ORDERED: IBUPROFEN 400 MG TABLET. PO ONE (09:00)
--- NOTE | 2019-09-13 09:02 | RAD ---
Right knee 3 views. HISTORY: Pain and swelling, recent injury 3 views were taken of the right knee. There is a joint effusion. There is soft tissue swelling. There is no fracture or acute osseous abnormality. MRI may be of benefit. IMPRESSION: 1. Prominent joint effusion. 2. No acute fracture of the right knee. Electronically signed by: Erlin Cruz MD (09/13/2019 8:59 AM) [id number]
[2019-09-13] MEDS ORDERED: methylPREDNISolone SOD SUCC PF 125 MG/2 ML VIAL. IM ONE (09:15)
[2019-09-13] MEDS ORDERED: KETOROLAC 60 MG/2 ML VIAL. IM ONE (09:15)
[2019-09-13] MEDS ORDERED: PRED20TA PO (09:16)
[2019-09-13] MEDS ORDERED: NAPR500T8 PO (09:16)
== END 2019-09-13 09:30 | disposition home or self-care (01) ==
LOC: ER 08:38
DX: M70.41 Prepatellar bursitis, right knee (principal); Z88.0 Allergy status to penicillin; Y93.89 Activity, other specified
CPT/HCPCS: 29505; 73562; 96372; 99284; J1885; J2930

== ENCOUNTER 2019-09-27 02:07 | Emergency (ER) | payer OTHER ==
[~2019-09-27] VITALS: Ht 185.4 cm; Wt 86.2 kg
[~2019-09-27 02:07] MED LIST changes: +NAPR500T8 PO; +PRED20TA PO
[2019-09-27 02:16] VITALS: BP 151/88
[2019-09-27] MEDS ORDERED: CLIN300C8 PO (02:25)
--- NOTE | 2019-09-27 04:16 | PHYS DOC ---
Past Medical History Past Medical History: Other Additional Past Medical Histor: HEARS VOICES,TOOK ANTIPSYCHOTIC MEDS IN PAST Past Surgical History: Tonsillectomy Alcohol Use: Heavy Additional Information: DRINKS 12-24 BEERS DAILY Drug Use: Cocaine, Marijuana, Methamphetamine Adult General Chief Complaint Chief Complaint: FOOT INJURY PAIN HPI HPI Patient is a 24 year old meth user going to detox wanted to get feet checked out he already has a bed over in [facility] currently mild pain feet are just red scaling and itchy atfter having been in wet socks without showering all week Review of Systems Review of Systems Constitutional: Denies fever or chills [] Allergies Allergies Allergies Coded Allergies Type Severity Reaction Last Updated Verified Penicillins Allergy Intermediate Rash 03/02/14 Yes Physical Exam Physical Exam Constitutional: Well developed, well nourished, no acute distress, non-toxic appearance. [] HENT: Normocephalic, atraumatic, bilateral external ears normal, oropharynx moist, no oral exudates, nose normal. [] Eyes: PERRLA, EOMI, conjunctiva normal, no discharge. [] skin: there is trench foot noted on the lower feet b/l. mild cellulitis likely sunburn on face noted Back: No tenderness, no CVA tenderness. [] Extremities: No tenderness, no cyanosis, no clubbing, ROM intact, no edema. [] Neurologic: Alert and oriented X 3, normal motor function, normal sensory function, no focal deficits noted. [] Psychologic:mild anxiety Current Patient Data Vital Signs Vital Signs Date Time Temp Pulse Resp B/P (MAP) Pulse Ox O2 Delivery O2 Flow Rate FiO2 09/27/19 02:16 98.2 68 20 151/88 (109) 96 Room Air 98.2 EKG EKG [] Radiology/Procedures Radiology/Procedures [] Course & Med Decision Making Course & Med Decision Making Pertinent Labs and Imaging studies reviewed. (See chart for details) [] Dragon Disclaimer Dragon Disclaimer This electronic medical record was generated, in whole or in part, using a voice recognition dictation system. Departure Departure Impression: Primary Impression: Trench foot Disposition: 01 HOME, SELF-CARE Condition: STABLE Additional Instructions: thank you for coming to the emergency department. at this point we will give you some antibiotics to prevent infection. please keep feet dry and clean you are cleared for detox. Scripts Clindamycin Hcl (CLINDAMYCIN HCL) 300 Mg Capsule 1 CAP PO TID, #21 CAP Prov: SONIA DICKSON MD 09/27/19 SONIA DICKSON MD Sep 27, 2019 04:16
== END 2019-09-27 02:59 | disposition home or self-care (01) ==
LOC: ER 02:07
DX: T69.022A Immersion foot, left foot, initial encounter (principal); T69.021A Immersion foot, right foot, initial encounter; F10.20 Alcohol dependence, uncomplicated; Z88.0 Allergy status to penicillin; Y90.9 Presence of alcohol in blood, level not specified
CPT/HCPCS: 99283

== ENCOUNTER 2019-12-06 01:11 | Emergency (ER) | payer SELFPAY ==
[~2019-12-06] VITALS: Ht 185.4 cm; Wt 86.4 kg
[~2019-12-06 01:11] MED LIST changes: +CLIN300C8 PO
[2019-12-06 01:15] VITALS: BP 161/86
[2019-12-06] MEDS ORDERED: TRAM50TA PO (01:37)
--- NOTE | 2019-12-06 01:44 | PHYS DOC ---
General Chief Complaint: LOWER EXTREMITY SWELLING Stated Complaint: LT KNEE PAIN AND SWELLING, CHRONIC Time Seen by MD: 01:24 Source: patient Exam Limitations: no limitations History of Present Illness Initial Comments Patient is a 24 year old AA male with h.o knee bursitis who presents with non- traumatic left knee pain and swelling starting yesterday. 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 No medications or therapy sticking prior to ED arrival. No other acute symptoms or complaints. Onset: just prior to arrival Pain/Injury Location: left leg Method of Injury: other Allergies: Coded Allergies: Penicillins (Verified Allergy, Intermediate, Rash, 03/02/14) Past Medical History Medical History: other (bursitis) Surgical History: no surgical history Family History Significant Family History: no pertinent family hx Social History Alcohol: other Review of Systems Constitutional: no symptoms reported EENTM: no symptoms reported Respiratory: no symptoms reported Cardiovascular: no symptoms reported Gastrointestinal: no symptoms reported Genitourinary: no symptoms reported, see HPI Musculoskeletal: joint swelling Skin: no symptoms reported Psychiatric/Neurological: no symptoms reported Physical Exam General Appearance: WD/WN, no apparent distress HEENT: PERRL/EOMI Neck: non-tender Cardiovascular/Respiratory: regular rate, rhythm Gastrointestinal: non-tender Back: normal inspection Knees: left knee pain, left knee soft tissue tenderness, left knee swelling (pre-petallar bursitis) Neurologic/Tendon: normal sensation Psychiatric: alert, oriented x 3 Orders, Labs, Meds Recommend supportive care GUSTAVO MAZARIEGOS DO Dec 06, 2019 01:44
== END 2019-12-06 02:00 | disposition home or self-care (01) ==
LOC: ER 01:11
DX: M25.562 Pain in left knee (principal); R60.9 Edema, unspecified
CPT/HCPCS: 99282

== ENCOUNTER 2019-12-09 06:52 | Emergency (ER) | payer SELFPAY ==
[~2019-12-09] VITALS: Ht 185.4 cm; Wt 86.3 kg
[~2019-12-09 06:52] MED LIST changes: +TRAM50TA PO
[2019-12-09 07:39] VITALS: BP 142/58
--- NOTE | 2019-12-09 08:37 | RAD ---
KNEE LEFT 4V History: Left knee injury. Technique: 4 views left knee. Comparison: None. Findings: Normal alignment. No fracture. Possible knee joint effusion. Soft tissues unremarkable. Impression: 1. No acute osseous abnormality. Electronically signed by: Dipesh Mcwilliams DO (12/09/2019 8:34 AM) [id number]
[2019-12-09] MEDS ORDERED: NAPR-683 PO (09:01)
[2019-12-09] MEDS ORDERED: METH4TAB2 PO (09:01)
--- NOTE | 2019-12-09 09:01 | PHYS DOC ---
Past Medical History Past Medical History: Other Additional Past Medical Histor: HEARS VOICES,TOOK ANTIPSYCHOTIC MEDS IN PAST Past Surgical History: Tonsillectomy Smoking Status: Current Every Day Smoker Alcohol Use: Heavy Drug Use: Cocaine, Marijuana, Methamphetamine Adult General Chief Complaint Chief Complaint: KNEE INJURY [facility] HPI Patient is a 24 year old male who presents with complaint of left knee swelling . Patient states he hit his left knee laying carpet 4 days ago and was seen in this emergency room the next day but the more getting worse. He denies fever and chills, focal neuro deficit, other injuries. Patient did not have x-ray of knee in his previous ER visit. Patient rated his pain as a moderate pain that getting worse with walking and kneeling. Review of Systems Review of Systems Constitutional: Denies fever or chills [] Eyes: Denies change in visual acuity, redness, or eye pain [] HENT: Denies nasal congestion or sore throat [] Respiratory: Denies cough or shortness of breath [] Cardiovascular: No additional information not addressed in HPI [] GI: Denies abdominal pain, nausea, vomiting, bloody stools or diarrhea [] : Denies dysuria or hematuria [] Musculoskeletal: Denies back pain , reports joint pain [] Integument: Denies rash or skin lesions [] Neurologic: Denies headache, focal weakness or sensory changes [] Endocrine: Denies polyuria or polydipsia [] All other systems were reviewed and found to be within normal limits, except as documented in this note. Allergies Allergies Allergies Coded Allergies Type Severity Reaction Last Updated Verified Penicillins Allergy Intermediate Rash 03/02/14 Yes Physical Exam Physical Exam Constitutional: Well developed, well nourished, mild distress, non-toxic appearance. [] HENT: Normocephalic, atraumatic. Eyes: PERRLA, EOMI, conjunctiva normal, no discharge. [] Neck: Normal range of motion, no tenderness, supple, no stridor. [] Cardiovascular:Heart rate regular rhythm, no murmur [] Lungs & Thorax: Bilateral breath sounds clear to auscultation [] Extremities: Left knee with moderate effusion especially in the medial side without erythema or tenderness, painful range of motion, no neurovascular deficit. Neurologic: Alert and oriented X 3, no focal deficits noted. [] Psychologic: Affect normal, judgement normal, mood normal. [] Current Patient Data Vital Signs Vital Signs Date Time Temp Pulse Resp B/P (MAP) Pulse Ox O2 Delivery O2 Flow Rate FiO2 12/09/19 07:39 97.9 59 18 142/58 (86) 98 Room Air 97.9 EKG EKG [] Radiology/Procedures Radiology/Procedures [facility] [address] [place] [address] IMAGING REPORT Signed PATIENT: CESAR BARRIOS AACCOUNT: [id number] : 1995 LOCATION: ER AGE: 24 SEX: M EXAM STATUS: REG ER ORD. PHYSICIAN: JACOB HERNANDES MD REASON: left knee injury x3 days ago after kicking object PROCEDURE: KNEE LEFT 4V KNEE LEFT 4V History: Left knee injury. Technique: 4 views left knee. Comparison: None. Findings: Normal alignment. No fracture. Possible knee joint effusion. Soft tissues unremarkable. Impression: 1. No acute osseous abnormality. Electronically signed by: Dipesh Mcwilliams DO (12/09/2019 8:34 AM) [id number] DICTATED and SIGNED BY: DIPESH MCWILLIAMS DO DATE: 12/09/19 0834 Course & Med Decision Making Course & Med Decision Making Pertinent Imaging studies reviewed. (See chart for details) Evolution of patient in ER showed 24-year-old male patient presented for the sec ond time to ER for left knee injury. X-ray did not show fracture and showed effusion. Ronald wrap was applied and patient was advised avoid of kneeling and follow up with orthopedic physician. Dragon Disclaimer Dragon Disclaimer This electronic medical record was generated, in whole or in part, using a voice recognition dictation system. Departure Departure Impression: Primary Impression: Effusion, left knee Disposition: 01 HOME, SELF-CARE (at 0 [phone]) Condition: STABLE Referrals: NO PCP (PCP) SELENA ECHEVERRIA MD Patient Instructions: Knee Effusion Additional Instructions: Apply ice on your knee Follow-up with orthopedic physician in 3-5 days Return to ER if not getting better Use crutches for walking Avoid of kneeling Scripts Naproxen (NAPROSYN) 500 Mg Tablet 1 TAB PO BID for pain, #20 TAB Prov: JACOB HERNANDES MD 12/09/19 Methylprednisolone (MEDROL) 4 Mg Tab.ds.pk 1 PKG PO UD for inflammation, #1 PKG Prov: JACOB HERNANDES MD 12/09/19 JACOB HERNANDES MD Dec 09, 2019 09:01
== END 2019-12-09 09:23 | disposition home or self-care (01) ==
LOC: ER 06:52
DX: M25.462 Effusion, left knee (principal); R60.0 Localized edema; F12.90 Cannabis use, unspecified, uncomplicated; F15.90 Other stimulant use, unspecified, uncomplicated; F14.90 Cocaine use, unspecified, uncomplicated; F17.200 Nicotine dependence, unspecified, uncomplicated; Z90.89 Acquired absence of other organs; Z88.0 Allergy status to penicillin
CPT/HCPCS: 73564; 99284

== ENCOUNTER 2020-01-03 16:05 | Emergency (ER) | payer SELFPAY ==
[~2020-01-03] VITALS: Ht 185.4 cm; Wt 86.6 kg
[~2020-01-03 16:05] MED LIST changes: +METH4TAB2 PO; +NAPR-683 PO
[2020-01-03] MEDS ORDERED: IV NORMAL SALINE 1000ML BAG 1,000 ML IV ONE (16:45)
--- NOTE | 2020-01-03 16:53 | PHYS DOC ---
Past Medical History Past Medical History: Other Additional Past Medical Histor: HEARS VOICES,TOOK ANTIPSYCHOTIC MEDS IN PAST Past Surgical History: Tonsillectomy Smoking Status: Current Every Day Smoker Alcohol Use: Heavy Drug Use: Cocaine, Marijuana, Methamphetamine Adult General Chief Complaint Chief Complaint: PSYCH EVALUATION HPI HPI Patient is a 24 year old M who comes in to the ER today very anxious and nervous and states he has been on a 6 day binge of methamphetamine abuse, mostly by smoking but some injecting. He states he has had problems with illicit drug a buse for over 7 years and has tried various programs and nothing has helped. He denies feeling suicidal but states he needs help. He states he went to [facility] prior and is asking about options of this today. He appears dry and states he has not had anything to eat or drink in 2 days. I asked him about family or friends in the area and he states he has no one who will see him anymore. Review of Systems Review of Systems Constitutional: Denies fever or chills HENT: Denies nasal congestion or sore throat Respiratory: Denies cough or shortness of breath Cardiovascular: Denies chest pain GI: Denies abdominal pain, nausea, vomiting, bloody stools or diarrhea : Denies dysuria or hematuria Musculoskeletal: Denies back pain or joint pain Integument: Denies rash or skin lesions Neurologic: Denies headache, focal weakness or sensory changes All other systems were reviewed and found to be within normal limits, except as documented in this note. Current Medications Current Medications Current Medications Medications (Trade) Dose Ordered Sig/Lanette Start Time Stop Time Status Last Admin Dose Admin Hydroxyzine HCl (Atarax) 25 mg PRN Q6HRS PRN 01/03/20 17:30 01/03/20 17:55 25 MG Sodium Chloride 1,000 ml @ 1,000 mls/hr 1X ONCE 01/03/20 16:45 01/03/20 17:44 DC 01/03/20 16:45 1,000 MLS/HR Allergies Allergies Allergies Coded Allergies Type Severity Reaction Last Updated Verified Penicillins Allergy Intermediate Rash 03/02/14 Yes Physical Exam Physical Exam Constitutional: Well developed, well nourished, no acute distress, non-toxic appearance. Pt appears anxious and dry. HENT: Normocephalic, atraumatic, bilateral external ears normal. Dry mucous membranes. Neck: Normal range of motion, no tenderness, supple, no stridor. Cardiovascular:Heart rate regular rhythm, no murmur Lungs & Thorax: Bilateral breath sounds clear to auscultation Abdomen: Bowel sounds normal, soft, no tenderness, no masses, no pulsatile masses. Skin: Warm, dry, no erythema, no rash. Back: No tenderness, no CVA tenderness. Extremities: No tenderness, no cyanosis, no clubbing, ROM intact, no edema. Neurologic: Alert and oriented X 3, normal motor function, normal sensory function, no focal deficits noted. Psychologic: Anxious, hypermotor movement, rocking. Denies SI/HI, but feels hopeless. Current Patient Data Vital Signs Vital Signs Date Time Temp Pulse Resp B/P (MAP) Pulse Ox O2 Delivery O2 Flow Rate FiO2 01/03/20 16:20 98.2 112 14 134/71 (92) 98 Room Air 98.2 Lab Values Laboratory Tests Test 01/03/20 16:50 White Blood Count 6.2 x10^3/uL (4.0-11.0) Red Blood Count 4.92 x10^6/uL (4.30-5.70) Hemoglobin 14.9 g/dL (13.0-17.5) Hematocrit 42.9 % (39.0-53.0) Mean Corpuscular Volume 87 fL (79-100) Mean Corpuscular Hemoglobin 30 pg (25-35) Mean Corpuscular Hemoglobin Concent 35 g/dL (31-37) Red Cell Distribution Width 13.7 % (11.5-14.5) Platelet Count 247 x10^3/uL (140-400) Neutrophils (%) (Auto) 50 % (31-73) Lymphocytes (%) (Auto) 36 % (24-48) Monocytes (%) (Auto) 12 % (0-9) H Eosinophils (%) (Auto) 1 % (0-3) Basophils (%) (Auto) 1 % (0-3) Neutrophils # (Auto) 3.0 x10^3/uL (1.8-7.7) Lymphocytes # (Auto) 2.2 x10^3/uL (1.0-4.8) Monocytes # (Auto) 0.8 x10^3/uL (0.0-1.1) Eosinophils # (Auto) 0.1 x10^3/uL (0.0-0.7) Basophils # (Auto) 0.1 x10^3/uL (0.0-0.2) Sodium Level 137 mmol/L (136-145) Potassium Level 4.1 mmol/L (3.5-5.1) Chloride Level 96 mmol/L (98-107) L Carbon Dioxide Level 17 mmol/L (21-32) L Anion Gap 24 (6-14) H Blood Urea Nitrogen 24 mg/dL (8-26) Creatinine 1.4 mg/dL (0.7-1.3) H Estimated GFR (Cockcroft-Gault) 61.7 BUN/Creatinine Ratio 17 (6-20) Glucose Level 75 mg/dL (70-99) Calcium Level 9.6 mg/dL (8.5-10.1) Total Bilirubin 1.5 mg/dL (0.2-1.0) H Aspartate Amino Transferase (AST) 27 U/L (15-37) Alanine Aminotransferase (ALT) 23 U/L (16-63) Alkaline Phosphatase 86 U/L (46-116) Troponin I Quantitative < 0.017 ng/mL (0.000-0.055) Total Protein 8.2 g/dL (6.4-8.2) Albumin 4.7 g/dL (3.4-5.0) Albumin/Globulin Ratio 1.3 (1.0-1.7) Ethyl Alcohol Level < 10 mg/dL (0-10) Laboratory Tests 01/03/20 16:50 Laboratory Tests 01/03/20 16:50 EKG EKG EK bpm, no STEMI Radiology/Procedures Radiology/Procedures [] Course & Med Decision Making Course & Med Decision Making Pertinent Labs and Imaging studies reviewed. (See chart for details) Pt had PAT consult and was seen by Adali, here in the ER, who was able to get pt a room at [facility]. Pt is medically stable. He did appear dehydrated and was given IV fluids and a meal. He is medically stable at this time. He was given a Hydroxyzine to help with anxiety. He will be discharged with a cab pass to go to [facility]. Dragon Disclaimer Dragon Disclaimer This electronic medical record was generated, in whole or in part, using a voice recognition dictation system. Departure Departure Impression: Primary Impression: Methamphetamine dependence Disposition: HOME, SELF-CARE Condition: STABLE Referrals: NO PCP (PCP) Patient Instructions: Methamphetamine Abuse, Complications Additional Instructions: You were seen by our psychiatry veterinary parasitologist and they have a place for you at the [facility]. You will be discharged from our ER and then sent to the [facility]. It is up to you to arrive at that facility and continue your care. ILENE GRANGER Jan 03, 2020 16:53
[2020-01-03 16:56] LABS: BASO # 0.1 x10^3/uL (0.0-0.2); BASO % 1 % (0-3); EOS # 0.1 x10^3/uL (0.0-0.7); EOS % 1 % (0-3); HEMATOCRIT 42.9 % (39.0-53.0); HEMOGLOBIN 14.9 g/dL (13.0-17.5); LYMPH # 2.2 x10^3/uL (1.0-4.8); LYMPH % 36 % (24-48); MEAN CORPUSCULAR HEMOGLOBIN 30 pg (25-35); MEAN CORPUSCULAR HGB CONC 35 g/dL (31-37); MEAN CORPUSCULAR VOLUME 87 fL (79-100); MONO # 0.8 x10^3/uL (0.0-1.1); MONO % 12 % (0-9); NEUT % 50 % (31-73); PLATELET COUNT 247 x10^3/uL (140-400); RED BLOOD COUNT 4.92 x10^6/uL (4.30-5.70); RED CELL DISTRIBUTION WIDTH 13.7 % (11.5-14.5); WHITE BLOOD COUNT 6.2 x10^3/uL (4.0-11.0)
[2020-01-03 17:08] LABS: CALCIUM 9.6 mg/dL (8.5-10.1); CREATININE 1.4 mg/dL (0.7-1.3); GFR 61.7; POTASSIUM 4.1 mmol/L (3.5-5.1)
[2020-01-03 17:13] LABS: ALBUMIN 4.7 g/dL (3.4-5.0); ALBUMIN/GLOBULIN RATIO 1.3 (1.0-1.7); TOTAL BILIRUBIN 1.5 mg/dL (0.2-1.0); TOTAL PROTEIN 8.2 g/dL (6.4-8.2)
[2020-01-03] MEDS ORDERED: hydrOXYzine 25 MG TABLET PO PRN (17:30)
[2020-01-03 18:34] LABS: BILIRUBIN,URINE SMALL (NEG); CLARITY,URINE CLEAR; COLOR,URINE YELLOW; NITRITE,URINE NEGATIVE (NEG); PROTEIN,URINE NEGATIVE (NEG-TRACE); UROBILINOGEN,URINE 0.2 mg/dL (0.2 mg/dL)
[2020-01-03 18:38] LABS: BARBITURATES NEG (NEG); BENZODIAZEPINES NEG (NEG); CANNABINOIDS NEG (NEG); COCAINE POS (NEG); METHADONE NEG (NEG); OPIATES NEG (NEG); PHENCYCLIDINE NEG (NEG)
[2020-01-03 18:45] LABS: AMPHETAMINE/METHAMPHETAMINE POS (NEG)
[2020-01-03 19:00] VITALS: BP 138/76
[2020-01-03 19:38] LABS: RBC,URINE 0 /HPF (0-2); WBC,URINE 0 /HPF (0-4)
[2020-01-03 19:39] LABS: BACTERIA,URINE 0 /HPF (0-FEW)
--- NOTE | 2020-01-04 06:10 | EKG ---
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
== END 2020-01-03 19:05 | disposition home or self-care (01) ==
LOC: ER 16:05
DX: F15.20 Other stimulant dependence, uncomplicated (principal); F14.90 Cocaine use, unspecified, uncomplicated; F12.90 Cannabis use, unspecified, uncomplicated; F10.10 Alcohol abuse, uncomplicated; F17.200 Nicotine dependence, unspecified, uncomplicated; Z90.89 Acquired absence of other organs; Z98.890 Other specified postprocedural states; Z88.0 Allergy status to penicillin
CPT/HCPCS: 36415; 80053; 80307; 81001; 84484; 85025; 93005; 99284; G0480; J7030

== ENCOUNTER 2020-01-31 13:34 | Emergency (ER) | payer SELFPAY ==
[~2020-01-31] VITALS: Ht 185.4 cm; Wt 82.7 kg
[2020-01-31] MEDS ORDERED: LORazepam 0.5 MG TABLET PO ONE (14:00)
[2020-01-31 16:30] VITALS: BP 109/57
--- NOTE | 2020-01-31 16:44 | PHYS DOC ---
Past Medical History Past Medical History: No Pertinent History, Other Additional Past Medical Histor: HEARS VOICES,TOOK ANTIPSYCHOTIC MEDS IN PAST Past Surgical History: Tonsillectomy Smoking Status: Current Every Day Smoker Alcohol Use: Heavy Drug Use: Cocaine, Marijuana, Methamphetamine Adult General Chief Complaint Chief Complaint: NEURO SYMPTOMS/DEFICITS HPI HPI Patient is a 24 year old male presenting to the ED with a chief complaint of dizziness. Patient states that he uses meth every day as well as cocaine. Patient states his last use was last night. Patient states that he does not have a home but sleeps in the [place]. Patient also states that has not eaten anything for the last 2 days and is hungry and thirsty. Review of Systems Review of Systems Patient denies fever, chills, nausea, vomiting, diarrhea, dysuria, chest pain. All other systems were reviewed and found to be within normal limits, except as documented in this note. Current Medications Current Medications Current Medications Medications (Trade) Dose Ordered Sig/Lanette Start Time Stop Time Status Last Admin Dose Admin Lorazepam (Ativan) 1 mg 1X ONCE 01/31/20 14:00 01/31/20 14:01 DC 01/31/20 14:02 1 MG Allergies Allergies Allergies Coded Allergies Type Severity Reaction Last Updated Verified Penicillins Allergy Intermediate Rash 03/02/14 Yes Physical Exam Physical Exam Constitutional: Well developed, well nourished, no acute distress, non-toxic appearance. [] HENT: Normocephalic, atraumatic Eyes: PERRLA, EOMI Neck: Normal range of motio Cardiovascular:Heart rate regular rhythm, no murmur [] Lungs & Thorax: Bilateral breath sounds clear to auscultation [] Abdomen: Bowel sounds normal, soft, no tenderness Extremities: No tenderness, no cyanosis, no clubbing, ROM intact, no edema. [] Neurologic: Alert and oriented X 3 Current Patient Data Vital Signs Vital Signs Date Time Temp Pulse Resp B/P (MAP) Pulse Ox O2 Delivery O2 Flow Rate FiO2 01/31/20 16:30 92 109/57 (74) 97 Room Air 01/31/20 15:00 18 01/31/20 13:47 98.7 98.7 EKG EKG [] Radiology/Procedures Radiology/Procedures [] Course & Med Decision Making Course & Med Decision Making Patient has mild shaking. Patient is given food and water to drink. Patient is sleeping comfortably in the ER. Patient vital signs are stable. No need to do blood work or any other testing. Patient is awake now and we will discharge him. Discussed plan of care with patient. Patient is instructed to follow up with PCP in one to 2 days. Appropriate discharge instructions given to patient to return to the ED or to seek immediate medical evaluation. Patient is instructed to return to the ED if symptoms worsen or if any concerns. Dragon Disclaimer Dragon Disclaimer This electronic medical record was generated, in whole or in part, using a voice recognition dictation system. Departure Departure Impression: Primary Impression: Drug abuse Disposition: HOME, SELF-CARE Condition: IMPROVED Referrals: NO PCP (PCP) Patient Instructions: Drug Abuse, FAKEIKO Garrett DO Jan 31, 2020 16:44
== END 2020-01-31 17:03 | disposition home or self-care (01) ==
LOC: ER 13:34
DX: F14.10 Cocaine abuse, uncomplicated (principal); F12.90 Cannabis use, unspecified, uncomplicated; R42 Dizziness and giddiness; F15.90 Other stimulant use, unspecified, uncomplicated; F17.200 Nicotine dependence, unspecified, uncomplicated; Z90.89 Acquired absence of other organs; Z88.0 Allergy status to penicillin
CPT/HCPCS: 99283

== ENCOUNTER 2020-03-20 20:32 | Emergency (ER) | payer SELFPAY ==
[~2020-03-20] VITALS: Ht 185.4 cm; Wt 79.0 kg
--- NOTE | 2020-03-20 20:50 | PHYS DOC ---
Past Medical History Past Medical History: No Pertinent History, Other Additional Past Medical Histor: HEARS VOICES,TOOK ANTIPSYCHOTIC MEDS IN PAST Past Surgical History: Knee Replacement, Tonsillectomy Smoking Status: Current Every Day Smoker Alcohol Use: Heavy Drug Use: Cocaine, Marijuana, Methamphetamine General Adult EDM: Chief Complaint: SUICDAL IDEATION HPI: HPI: 24-year-old homeless male with significant history of gout, who presents for evaluation of suicidal ideation. Patient recently had a 3-day crack cocaine "navarrete". His last use was a few hours prior to arrival. He reports thoughts of self-harm, specifically to overdose on Suboxone. He reports strained relationship with his brother as an inciting event. No acute medical complaints. Review of Systems: Review of Systems: Gen: No fever, chills. ENT: No nasal congestion, sore throat. CV: No CP, palpitations. Resp. No SOB, cough. GI: No abd pain, N/V. Neuro: No GRANDA, dizziness. MSK: No back pain. Reports chronic right knee pain. Skin: No acute rash or lesion. Psych: Reports substance abuse, depression, SI. Heart Score: Risk Factors: Risk Factors: DM, Current or recent (<one month) smoker, HTN, HLP, family history of CAD, obesity. Risk Scores: Score 0 - 3: 2.5% MACE over next 6 weeks - Discharge Home Score 4 - 6: 20.3% MACE over next 6 weeks - Admit for Clinical Observation Score 7 - 10: 72.7% MACE over next 6 weeks - Early Invasive Strategies Allergies: Allergies: Allergies Coded Allergies Type Severity Reaction Last Updated Verified Penicillins Allergy Intermediate Rash 03/02/14 Yes Physical Exam: PE: Gen: NAD. Head: NC/AT. Eyes: No scleral icterus. No conjunctival injection. PERRL 5 mm. ENT: MMM. Posterior OP clear. Neck: Supple. NT. CV: RRR. Peripheral pulses intact. Resp: CTAB. Abd: Soft. NT. ND. MSK: No peripheral cyanosis. No edema. Neuro: Awake and alert. Skin. Warm. Dry. Psych: Appropriate mood & affect. EKG: EKG: [] Radiology/Procedures: Radiology/Procedures: [] Course & Med Decision Making: Course & Med Decision Making Pertinent Labs and Imaging studies reviewed. (See chart for details) Has been assessed by JOE De Jesus). Placed at [facility]. Medically cleared from my standpoint. Yanna Disclaimer: Yanna Disclaimer: This electronic medical record was generated, in whole or in part, using a voice recognition dictation system. Departure Departure Impression: Primary Impression: Drug abuse Additional Impression: Suicidal ideation Disposition: 05 TRANSFER OTHER (RSI) Condition: STABLE Referrals: NO PCP (PCP) Patient Instructions: Drug Abuse, FAALYSON Higgins DO March 20, 2020 20:50
[2020-03-20 21:10] LABS: BASO % 1 % (0-3); EOS # 0.1 x10^3/uL (0.0-0.7); EOS % 2 % (0-3); HEMATOCRIT 39.8 % (39.0-53.0); HEMOGLOBIN 13.6 g/dL (13.0-17.5); LYMPH % 36 % (24-48); MEAN CORPUSCULAR HEMOGLOBIN 30 pg (25-35); MEAN CORPUSCULAR HGB CONC 34 g/dL (31-37); MEAN CORPUSCULAR VOLUME 86 fL (79-100); MONO # 0.6 x10^3/uL (0.0-1.1); MONO % 11 % (0-9); NEUT # 2.9 x10^3/uL (1.8-7.7); NEUT % 51 % (31-73); PLATELET COUNT 302 x10^3/uL (140-400); RED BLOOD COUNT 4.61 x10^6/uL (4.30-5.70); RED CELL DISTRIBUTION WIDTH 13.6 % (11.5-14.5); WHITE BLOOD COUNT 5.7 x10^3/uL (4.0-11.0)
[2020-03-20 21:18] LABS: CALCIUM 9.3 mg/dL (8.5-10.1); POTASSIUM 4.1 mmol/L (3.5-5.1)
[2020-03-20 21:23] LABS: ALBUMIN 3.7 g/dL (3.4-5.0); ALBUMIN/GLOBULIN RATIO 1.1 (1.0-1.7); TOTAL BILIRUBIN 0.7 mg/dL (0.2-1.0); TOTAL PROTEIN 7.2 g/dL (6.4-8.2)
[2020-03-20 21:24] LABS: ACETAMIN < 2 mcg/ml (10-30); ETHANOL 13 mg/dL (0-10); SALIC < 2.8 mg/dL (2.8-20.0)
[2020-03-20 21:33] LABS: AMPHETAMINE/METHAMPHETAMINE POS (NEG); BARBITURATES NEG (NEG); BENZODIAZEPINES NEG (NEG); CANNABINOIDS NEG (NEG); COCAINE POS (NEG); METHADONE NEG (NEG); OPIATES NEG (NEG); PHENCYCLIDINE NEG (NEG)
[2020-03-20 23:45] VITALS: BP 119/55
[2020-03-21] MEDS ORDERED: chlordiazePOXIDE HCL 25 MG CAPSULE PO ONE
== END 2020-03-21 01:03 | disposition short-term general hospital (02) ==
LOC: ER 20:32
DX: R45.851 Suicidal ideations (principal); F14.10 Cocaine abuse, uncomplicated; F12.90 Cannabis use, unspecified, uncomplicated; F15.90 Other stimulant use, unspecified, uncomplicated; F10.10 Alcohol abuse, uncomplicated; F17.200 Nicotine dependence, unspecified, uncomplicated; Z90.89 Acquired absence of other organs; Z98.890 Other specified postprocedural states; Z59.0 Homelessness; Z88.0 Allergy status to penicillin
CPT/HCPCS: 36415; 80053; 80307; 80329; 85025; 99285; G0480

== ENCOUNTER 2020-06-08 18:10 | Emergency (ER) | payer SELFPAY ==
[~2020-06-08] VITALS: Ht 185.4 cm; Wt 81.8 kg
--- NOTE | 2020-06-08 19:57 | PHYS DOC ---
Past Medical History Past Medical History: No Pertinent History, Other Additional Past Medical Histor: HEARS VOICES,TOOK ANTIPSYCHOTIC MEDS IN PAST Past Surgical History: Knee Replacement, Tonsillectomy Smoking Status: Current Every Day Smoker Alcohol Use: Occasionally Drug Use: Cocaine, Marijuana, Methamphetamine General Adult EDM: Chief Complaint: NAUSEA/VOMITING/DIARRHA HPI: HPI: Patient is a 24 year old male who presents with complaints of dehydration. Patient reports he has been in his usual state of good health. He he reports that he is homeless and does have a history of alcohol and drug abuse. Recently however he says he has not been doing any IV drugs. He also denied any abdominal pain reporting that it was just nausea with vomiting without pain. He denied any diarrhea, melena or hematochezia, fever chills, cough, shortness of breath or chest pain. He also denies any any difficulty with urination other than that his urine is quite dark now. He is also quite thirsty. He reports he got really hot but was able to sweat. Review of Systems: Review of Systems: Constitutional: Denies fever or chills. [] Eyes: Denies change in visual acuity. [] HENT: Denies nasal congestion or sore throat. [] Respiratory: Denies cough or shortness of breath. [] Cardiovascular: Denies chest pain or edema. [] GI: See HPI. [] : Denies dysuria. [] Musculoskeletal: Denies back pain or joint pain. [] Integument: Denies rash. [] Neurologic: Denies headache, focal weakness or sensory changes. [] Endocrine: Denies polyuria or polydipsia. [] Lymphatic: Denies swollen glands. [] Psychiatric: Denies depression or anxiety. [] Heart Score: Risk Factors: Risk Factors: DM, Current or recent (<one month) smoker, HTN, HLP, family history of CAD, obesity. Risk Scores: Score 0 - 3: 2.5% MACE over next 6 weeks - Discharge Home Score 4 - 6: 20.3% MACE over next 6 weeks - Admit for Clinical Observation Score 7 - 10: 72.7% MACE over next 6 weeks - Early Invasive Strategies Allergies: Allergies: Allergies Coded Allergies Type Severity Reaction Last Updated Verified Penicillins Allergy Intermediate Rash 03/02/14 Yes Physical Exam: PE: Constitutional: Well developed, well nourished, no acute distress, non-toxic appearance. [] HENT: Normocephalic, atraumatic, bilateral external ears normal, oropharynx moist, no oral exudates, nose normal. [] Eyes: PERRLA, EOMI, conjunctiva normal, no discharge. [] Neck: Normal range of motion, no tenderness, supple, no stridor. [] Cardiovascular: Tachycardic, regular rhythm, no murmurs S3 or S4, pulses 2 of 2 bilateral radial pulse [] Lungs & Thorax: Bilateral breath sounds clear to auscultation [] Abdomen: Bowel sounds normal, soft, no tenderness, no masses, no pulsatile masses. [] Skin: Warm, dry, no erythema, no rash. [] Back: No tenderness, no CVA tenderness. [] Extremities: No tenderness, no cyanosis, no clubbing, ROM intact, no edema. [] Neurologic: Alert and oriented X 3, normal motor function, normal sensory function, no focal deficits noted. [] Psychologic: Affect normal, judgement normal, mood normal. [] Current Patient Data: Vital Signs: Vital Signs Date Time Temp Pulse Resp B/P (MAP) Pulse Ox O2 Delivery O2 Flow Rate FiO2 06/08/20 19:00 114 112/57 (75) 97 Room Air 06/08/20 18:20 98.7 20 98.7 EKG: EKG: Heart rate is 96 bpm, normal axes, normal intervals, sinus rhythm, normal ECG [] Radiology/Procedures: Radiology/Procedures: [] Course & Med Decision Making: Course & Med Decision Making Pertinent Labs and Imaging studies reviewed. (See chart for details) 2139-patient was seen and reevaluated. Patient is improved with the treatments rendered here in the emergency department. No evidence for next medical or surgical problem is identified other than that of dehydration which is been treated with 2 L of IV fluids. Patient reports that he is no longer feeling thirsty and is ready to go home. I discussed reasons to return, treatment plan and need for follow-up. [] Dragon Disclaimer: Dragon Disclaimer: This electronic medical record was generated, in whole or in part, using a voice recognition dictation system. Departure Departure Impression: Primary Impression: Moderate dehydration Disposition: HOME, SELF-CARE Condition: IMPROVED Referrals: NO PCP (PCP) Patient Instructions: Dehydration, Adult Additional Instructions: Please drink plenty of fluids today, try to stay out of the heat, return for any change in condition. Justicifation of Admission Dx: Justifications for Admission: Justification of Admission Dx: N/A FLAVIA LEDEZMA MD Jun 08, 2020 19:57
[2020-06-08] MEDS ORDERED: METOCLOPRAMIDE HCL 10 MG/2 ML VIAL. IVP ONE (20:00)
[2020-06-08] MEDS ORDERED: KETOROLAC 15 MG/ML VIAL. IVP ONE (20:00)
[2020-06-08] MEDS ORDERED: IV NORMAL SALINE 1000ML BAG 1,000 ML IV ONE ×2 (20:00)
[2020-06-08 20:14] LABS: BASO % 0 % (0-3); EOS % 0 % (0-3); HEMOGLOBIN 15.2 g/dL (13.0-17.5); LYMPH # 1.1 x10^3/uL (1.0-4.8); LYMPH % 8 % (24-48); MEAN CORPUSCULAR HEMOGLOBIN 30 pg (25-35); MEAN CORPUSCULAR HGB CONC 35 g/dL (31-37); MEAN CORPUSCULAR VOLUME 87 fL (79-100); MONO % 7 % (0-9); NEUT # 12.2 x10^3/uL (1.8-7.7); NEUT % 86 % (31-73); PLATELET COUNT 273 x10^3/uL (140-400); RED BLOOD COUNT 5.08 x10^6/uL (4.30-5.70); WHITE BLOOD COUNT 14.2 x10^3/uL (4.0-11.0)
[2020-06-08 20:16] LABS: BILIRUBIN,URINE SMALL (NEG); CLARITY,URINE CLEAR; COLOR,URINE AMBER; NITRITE,URINE NEGATIVE (NEG); PROTEIN,URINE NEGATIVE (NEG-TRACE); UROBILINOGEN,URINE 0.2 mg/dL (0.2 mg/dL)
[2020-06-08 20:21] LABS: CALCIUM 9.6 mg/dL (8.5-10.1); CREATININE 1.8 mg/dL (0.7-1.3); GFR 46.2; POTASSIUM 4.7 mmol/L (3.5-5.1)
[2020-06-08 20:25] LABS: BACTERIA,URINE FEW /HPF (0-FEW); GRANULAR CASTS,URINE MODERATE /HPF; HYALINE CASTS, URINE MANY /HPF; SQUAMOUS EPITHELIAL CELL,UR FEW /LPF
[2020-06-08 20:28] LABS: ALBUMIN 4.8 g/dL (3.4-5.0); ALBUMIN/GLOBULIN RATIO 1.4 (1.0-1.7); TOTAL PROTEIN 8.3 g/dL (6.4-8.2)
[2020-06-08 21:57] VITALS: BP 126/59
--- NOTE | 2020-06-12 05:23 | EKG ---
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
== END 2020-06-08 21:57 | disposition home or self-care (01) ==
LOC: ER 18:10
DX: E86.0 Dehydration (principal); Z59.0 Homelessness; F17.200 Nicotine dependence, unspecified, uncomplicated; F14.10 Cocaine abuse, uncomplicated; F12.10 Cannabis abuse, uncomplicated; F15.10 Other stimulant abuse, uncomplicated; F10.10 Alcohol abuse, uncomplicated; Y90.9 Presence of alcohol in blood, level not specified; Z88.0 Allergy status to penicillin
CPT/HCPCS: 36415; 80053; 81001; 82550; 85025; 96361; 96374; 96375; 99285; J1885; J2765; J7030; 93005

== ENCOUNTER 2020-07-04 12:34 | Emergency (ER) | payer SELFPAY ==
[~2020-07-04] VITALS: Ht 185.4 cm; Wt 79.2 kg
[2020-07-04] MEDS ORDERED: IV NORMAL SALINE 1000ML BAG 1,000 ML IV ONE (13:30)
[2020-07-04 13:44] LABS: BASO % 1 % (0-3); EOS # 0.1 x10^3/uL (0.0-0.7); EOS % 2 % (0-3); HEMATOCRIT 43.4 % (39.0-53.0); HEMOGLOBIN 14.8 g/dL (13.0-17.5); LYMPH # 1.3 x10^3/uL (1.0-4.8); LYMPH % 34 % (24-48); MEAN CORPUSCULAR HEMOGLOBIN 31 pg (25-35); MEAN CORPUSCULAR HGB CONC 34 g/dL (31-37); MEAN CORPUSCULAR VOLUME 90 fL (79-100); MONO # 0.5 x10^3/uL (0.0-1.1); MONO % 13 % (0-9); NEUT % 50 % (31-73); PLATELET COUNT 223 x10^3/uL (140-400); RED BLOOD COUNT 4.84 x10^6/uL (4.30-5.70); RED CELL DISTRIBUTION WIDTH 15.7 % (11.5-14.5)
[2020-07-04 13:48] LABS: AMPHETAMINE/METHAMPHETAMINE NEG (NEG); BARBITURATES NEG (NEG); BENZODIAZEPINES NEG (NEG); CANNABINOIDS NEG (NEG); COCAINE NEG (NEG); METHADONE NEG (NEG); OPIATES NEG (NEG); PHENCYCLIDINE NEG (NEG)
[2020-07-04 13:54] LABS: CALCIUM 8.7 mg/dL (8.5-10.1); POTASSIUM 4.4 mmol/L (3.5-5.1)
[2020-07-04 13:55] LABS: SALIC < 2.8 mg/dL (2.8-20.0)
[2020-07-04 13:56] LABS: ACETAMIN < 2 mcg/ml (10-30); ETHANOL < 10 mg/dL (0-10); PROTHROMBIN TIME PATIENT 13.2 SEC (11.7-14.0)
[2020-07-04 14:04] LABS: BILIRUBIN,URINE NEGATIVE (NEG); CLARITY,URINE CLEAR; COLOR,URINE YELLOW; NITRITE,URINE NEGATIVE (NEG); PROTEIN,URINE NEGATIVE (NEG-TRACE)
[2020-07-04 14:05] LABS: ALBUMIN 3.6 g/dL (3.4-5.0); DIRECT BILIRUBIN 0.2 mg/dL (0.0-0.2); TOTAL BILIRUBIN 0.4 mg/dL (0.2-1.0); TOTAL PROTEIN 7.3 g/dL (6.4-8.2)
[2020-07-04 14:15] LABS: BACTERIA,URINE 0 /HPF (0-FEW); RBC,URINE 0 /HPF (0-2); SPERM,URINE PRESENT /HPF; WBC,URINE 0 /HPF (0-4)
--- NOTE | 2020-07-04 14:46 | PHYS DOC ---
Past Medical History Past Medical History: Alcoholism, Other Additional Past Medical Histor: "HEARS VOICES", GOUT Past Surgical History: Tonsillectomy, Other Additional Past Surgical Histo: KNEE INJECTION , LEFT Smoking Status: Current Every Day Smoker Alcohol Use: Heavy Additional Information: 07/2020 - "HALF TO 3/4 GALLON" VODKA A DAY Drug Use: Cocaine, Marijuana, Methamphetamine Social History Narrative: IV METH General Adult EDM: Chief Complaint: WITHDRAWL HPI: HPI: Patient is a 24 years old male who is well-known to this department, presented to the ER wanted some anxiety medication for his alcohol withdrawal. Patient claimed that the last time he had alcohol was yesterday. Patient denied suic idal ideation, denies homicidal patient. Patient denies any abdominal pain, no nausea vomiting. Review of Systems: Review of Systems: Constitutional: Denies fever or chills. [] Eyes: Denies change in visual acuity. [] HENT: Denies nasal congestion or sore throat. [] Respiratory: Denies cough or shortness of breath. [] Cardiovascular: Denies chest pain or edema. [] GI: Denies abdominal pain, nausea, vomiting, bloody stools or diarrhea. [] : Denies dysuria. [] Musculoskeletal: Denies back pain or joint pain. [] Integument: Denies rash. [] Neurologic: Denies headache, focal weakness or sensory changes. [] Endocrine: Denies polyuria or polydipsia. [] Lymphatic: Denies swollen glands. [] Psychiatric: Denies depression or anxiety. [] Heart Score: Risk Factors: Risk Factors: DM, Current or recent (<one month) smoker, HTN, HLP, family history of CAD, obesity. Risk Scores: Score 0 - 3: 2.5% MACE over next 6 weeks - Discharge Home Score 4 - 6: 20.3% MACE over next 6 weeks - Admit for Clinical Observation Score 7 - 10: 72.7% MACE over next 6 weeks - Early Invasive Strategies Current Medications: Current Medications Medications (Trade) Dose Ordered Sig/Lanette Start Time Stop Time Status Last Admin Dose Admin Lorazepam (Ativan Inj) 1 mg 1X ONCE 07/04/20 14:30 07/04/20 14:31 DC 07/04/20 14:22 1 MG Sodium Chloride 1,000 ml @ 1,000 mls/hr 1X ONCE 07/04/20 13:30 07/04/20 14:29 DC 07/04/20 13:33 1,000 MLS/HR Allergies: Allergies: Allergies Coded Allergies Type Severity Reaction Last Updated Verified Penicillins Allergy Intermediate Rash 03/02/14 Yes Physical Exam: PE: Constitutional: Well developed, well nourished, no acute distress, non-toxic appearance. [] HENT: Normocephalic, atraumatic, bilateral external ears normal, oropharynx moist, no oral exudates, nose normal. [] Eyes: PERRLA, EOMI, conjunctiva normal, no discharge. [] Neck: Normal range of motion, no tenderness, supple, no stridor. [] Cardiovascular:Heart rate regular rhythm, no murmur [] Lungs & Thorax: Bilateral breath sounds clear to auscultation [] Abdomen: Bowel sounds normal, soft, no tenderness, no masses, no pulsatile masses. [] Skin: Warm, dry, no erythema, no rash. [] Back: No tenderness, no CVA tenderness. [] Extremities: No tenderness, no cyanosis, no clubbing, ROM intact, no edema. [] Neurologic: Alert and oriented X 3, normal motor function, normal sensory function, no focal deficits noted. [] Psychologic: Affect normal, judgement normal, mood normal. [] Current Patient Data: Labs: Laboratory Tests Test 07/04/20 13:11 07/04/20 13:36 White Blood Count 4.0 x10^3/uL (4.0-11.0) Red Blood Count 4.84 x10^6/uL (4.30-5.70) Hemoglobin 14.8 g/dL (13.0-17.5) Hematocrit 43.4 % (39.0-53.0) Mean Corpuscular Volume 90 fL (79-100) Mean Corpuscular Hemoglobin 31 pg (25-35) Mean Corpuscular Hemoglobin Concent 34 g/dL (31-37) Red Cell Distribution Width 15.7 % (11.5-14.5) H Platelet Count 223 x10^3/uL (140-400) Neutrophils (%) (Auto) 50 % (31-73) Lymphocytes (%) (Auto) 34 % (24-48) Monocytes (%) (Auto) 13 % (0-9) H Eosinophils (%) (Auto) 2 % (0-3) Basophils (%) (Auto) 1 % (0-3) Neutrophils # (Auto) 2.0 x10^3/uL (1.8-7.7) Lymphocytes # (Auto) 1.3 x10^3/uL (1.0-4.8) Monocytes # (Auto) 0.5 x10^3/uL (0.0-1.1) Eosinophils # (Auto) 0.1 x10^3/uL (0.0-0.7) Basophils # (Auto) 0.0 x10^3/uL (0.0-0.2) Prothrombin Time 13.2 SEC (11.7-14.0) Prothrombin Time INR 1.0 (0.8-1.1) Activated Partial Thromboplast Time 27 SEC (24-38) Sodium Level 140 mmol/L (136-145) Potassium Level 4.4 mmol/L (3.5-5.1) Chloride Level 103 mmol/L (98-107) Carbon Dioxide Level 31 mmol/L (21-32) Anion Gap 6 (6-14) Blood Urea Nitrogen 15 mg/dL (8-26) Creatinine 1.0 mg/dL (0.7-1.3) Estimated GFR (Cockcroft-Gault) 91.0 Glucose Level 130 mg/dL (70-99) H Calcium Level 8.7 mg/dL (8.5-10.1) Magnesium Level 2.0 mg/dL (1.8-2.4) Total Bilirubin 0.4 mg/dL (0.2-1.0) Direct Bilirubin 0.2 mg/dL (0.0-0.2) Aspartate Amino Transferase (AST) 183 U/L (15-37) H Alanine Aminotransferase (ALT) 291 U/L (16-63) H Alkaline Phosphatase 109 U/L (46-116) Total Protein 7.3 g/dL (6.4-8.2) Albumin 3.6 g/dL (3.4-5.0) Salicylates Level < 2.8 mg/dL (2.8-20.0) L Salicylate Last Dose Date Salicylate Last Dose Time Acetaminophen Level < 2 mcg/ml (10-30) L Acetaminophen Last Dose Date Acetaminophen Last Dose Time Ethyl Alcohol Level < 10 mg/dL (0-10) Urine Collection Type Unknown Urine Color Yellow Urine Clarity Clear Urine pH 6.0 (<5.0-8.0) Urine Specific Lowes 1.025 (1.000-1.030) Urine Protein Negative mg/dL (NEG-TRACE) Urine Glucose (UA) Negative mg/dL (NEG) Urine Ketones (Stick) Negative mg/dL (NEG) Urine Blood Negative (NEG) Urine Nitrite Negative (NEG) Urine Bilirubin Negative (NEG) Urine Urobilinogen Dipstick 1.0 mg/dL (0.2 mg/dL) Urine Leukocyte Esterase Negative (NEG) Urine RBC 0 /HPF (0-2) Urine WBC 0 /HPF (0-4) Urine Squamous Epithelial Cells None /LPF Urine Bacteria 0 /HPF (0-FEW) Urine Mucus Slight /LPF Urine Sperm Present /HPF Urine Opiates Screen Neg (NEG) Urine Methadone Screen Neg (NEG) Urine Barbiturates Neg (NEG) Urine Phencyclidine Screen Neg (NEG) Urine Amphetamine/Methamphetamine Neg (NEG) Urine Benzodiazepines Screen Neg (NEG) Urine Cocaine Screen Neg (NEG) Urine Cannabinoids Screen Neg (NEG) Urine Ethyl Alcohol Neg (NEG) Laboratory Tests 07/04/20 13:11 Laboratory Tests 07/04/20 13:11 Vital Signs: Vital Signs Date Time Temp Pulse Resp B/P (MAP) Pulse Ox O2 Delivery O2 Flow Rate FiO2 07/04/20 13:00 98.3 68 16 130/70 (90) 100 Room Air 98.3 EKG: EKG: [] Radiology/Procedures: Radiology/Procedures: [] Course & Med Decision Making: Course & Med Decision Making Pertinent Labs and Imaging studies reviewed. (See chart for details) Patient is a 24-year-old male who denies suicidal ideation came in the ER today for anxiety due to alcohol withdrawal. Patient denies any seizure activity, patient was given some Ativan in the ER, he feels much better. Patient will be discharged home Yanna Disclaimer: Yanna Disclaimer: This electronic medical record was generated, in whole or in part, using a voice recognition dictation system. Departure Departure Impression: Primary Impression: Alcoholism Disposition: HOME, SELF-CARE Condition: IMPROVED Referrals: NO PCP (PCP) Patient Instructions: Alcohol Problems Scripts Lorazepam (ATIVAN) 1 Mg Tablet 0.5 MG PO Q6HRS PRN for ANXIETY, #15 TAB Prov: DEBBIE WEI DO 07/04/20 Justicifation of Admission Dx: Justifications for Admission: Justification of Admission Dx: N/A DEBBIE WEI DO Jul 04, 2020 14:46
[2020-07-04] MEDS ORDERED: LORA-434 PO (14:57)
[2020-07-04 15:00] VITALS: BP 141/83
== END 2020-07-04 15:37 | disposition home or self-care (01) ==
LOC: ER 12:34
DX: F10.239 Alcohol dependence with withdrawal, unspecified (principal); Y90.9 Presence of alcohol in blood, level not specified; F41.9 Anxiety disorder, unspecified; M10.9 Gout, unspecified; F17.200 Nicotine dependence, unspecified, uncomplicated; Z88.0 Allergy status to penicillin
CPT/HCPCS: 36415; 80048; 80076; 80307; 80329; 81001; 83735; 85025; 85610; 85730; 96361; 96374; 99285; G0480; J2060; J7030

== ENCOUNTER 2020-07-21 02:34 | Emergency (ER) | payer SELFPAY ==
[~2020-07-21] VITALS: Ht 185.4 cm; Wt 81.0 kg
[2020-07-21 04:16] LABS: BASO % 1 % (0-3); EOS # 0.1 x10^3/uL (0.0-0.7); EOS % 1 % (0-3); HEMATOCRIT 40.2 % (39.0-53.0); HEMOGLOBIN 13.8 g/dL (13.0-17.5); LYMPH # 2.4 x10^3/uL (1.0-4.8); LYMPH % 40 % (24-48); MEAN CORPUSCULAR HEMOGLOBIN 31 pg (25-35); MEAN CORPUSCULAR HGB CONC 34 g/dL (31-37); MEAN CORPUSCULAR VOLUME 90 fL (79-100); MONO # 0.6 x10^3/uL (0.0-1.1); MONO % 10 % (0-9); NEUT % 49 % (31-73); PLATELET COUNT 200 x10^3/uL (140-400); RED BLOOD COUNT 4.49 x10^6/uL (4.30-5.70); RED CELL DISTRIBUTION WIDTH 14.5 % (11.5-14.5); WHITE BLOOD COUNT 6.1 x10^3/uL (4.0-11.0)
[2020-07-21 04:27] LABS: CALCIUM 8.9 mg/dL (8.5-10.1); CREATININE 1.2 mg/dL (0.7-1.3); GFR 73.8; POTASSIUM 3.9 mmol/L (3.5-5.1)
--- NOTE | 2020-07-21 04:27 | RAD ---
CT HEAD INDICATION: Confusion COMPARISON: None Available. Exposure: One or more of the following individualized dose reduction techniques were utilized for this examination: 1. Automated exposure control 2. Adjustment of the mA and/or kV according to patient size 3. Use of iterative reconstruction technique TECHNIQUE: 5 mm contiguous axial images were obtained from the skull base to the vertex in both bone and soft tissue algorithm. FINDINGS: No abnormal attenuation within the brain parenchyma. No evidence of acute intracranial hemorrhage. No extra-axial fluid collections. No mass effect or midline shift. Ventricular size is appropriate. Basal cisterns are patent. No fractures identified.Chaudhary-white differentiation is preserved.Globes and orbits are within normal limits. Paranasal sinuses and mastoid air cells are clear. IMPRESSION: No acute intracranial findings. Electronically signed by: Cristian Ortiz MD (07/21/2020 4:24 AM) [id number]
[2020-07-21] MEDS ORDERED: IV NORMAL SALINE 1000ML BAG 1,000 ML IV ONE (04:30)
--- NOTE | 2020-07-21 04:58 | PHYS DOC ---
Past Medical History Past Medical History: Alcoholism, Other Additional Past Medical Histor: GOUT Past Surgical History: Tonsillectomy, Other Additional Past Surgical Histo: KNEE INJECTION , LEFT Smoking Status: Current Every Day Smoker Alcohol Use: Heavy Drug Use: Cocaine, Marijuana, Methamphetamine Social History Narrative: 'CRACK' 3 DAY'S AGO General Adult EDM: Chief Complaint: DRUG ABUSE HPI: HPI: Patient is a 24-year-old male well-known to this emergency room who presents the emergency room concerned he may have given himself a stroke yesterday. Patient states he took a large amount of meth and then went straight to sleep. He woke up today feeling off and sometimes confused. He has no other complaints. She denies any numbness or weakness. He is not having difficulty with gait. Review of Systems: Review of Systems: General: Denies fever, chills, sweats, fatigue Eyes: Denies drainage, blurred vision, eye redness HENT: Denies rhinorrhea, sore throat, earache Respiratory: Denies cough, shortness of breath, wheezing Cardiac: Denies edema, palpitations, chest pain GI: Denies abdominal pain, Nausea, vomiting MSK: Denies back pain, neck pain Skin: Denies rash, jaundice Neuro: Denies headache, dizziness Psychiatric: Denies SI/HI Heart Score: Risk Factors: Risk Factors: DM, Current or recent (<one month) smoker, HTN, HLP, family history of CAD, obesity. Risk Scores: Score 0 - 3: 2.5% MACE over next 6 weeks - Discharge Home Score 4 - 6: 20.3% MACE over next 6 weeks - Admit for Clinical Observation Score 7 - 10: 72.7% MACE over next 6 weeks - Early Invasive Strategies Current Medications: Current Medications Medications (Trade) Dose Ordered Sig/Lanette Start Time Stop Time Status Last Admin Dose Admin Sodium Chloride 1,000 ml @ 0 mls/hr 1X ONCE 07/21/20 04:30 07/21/20 04:34 DC Allergies: Allergies: Allergies Coded Allergies Type Severity Reaction Last Updated Verified Penicillins Allergy Intermediate Rash 03/02/14 Yes Physical Exam: PE: General: Awake, alert, NAD. Well Nourished, well hydrated. Cooperative HEENT: Atraumatic, EOMI, PERRL, airway patent, moist oral mucosa Neck: Supple, trachea midline Respiratory: CTA bilaterally, normal effort, no wheezing/crackles CV: RRR, no murmur, cap refill <2 GI: Soft, nondistended, nontender, no masses MSK: No obvious deformities Skin: Warm, dry, intact Neuro: A&O x3, speech NL, 5/5 strength in BUE/BLE distally and proximally, CN 2- 12 intact, cerebellar testing normal, normal gait Psych: Normal affect, normal mood, not suicidal or homicidal Current Patient Data: Labs: Laboratory Tests Test 07/21/20 04:07 White Blood Count 6.1 x10^3/uL (4.0-11.0) Red Blood Count 4.49 x10^6/uL (4.30-5.70) Hemoglobin 13.8 g/dL (13.0-17.5) Hematocrit 40.2 % (39.0-53.0) Mean Corpuscular Volume 90 fL (79-100) Mean Corpuscular Hemoglobin 31 pg (25-35) Mean Corpuscular Hemoglobin Concent 34 g/dL (31-37) Red Cell Distribution Width 14.5 % (11.5-14.5) Platelet Count 200 x10^3/uL (140-400) Neutrophils (%) (Auto) 49 % (31-73) Lymphocytes (%) (Auto) 40 % (24-48) Monocytes (%) (Auto) 10 % (0-9) H Eosinophils (%) (Auto) 1 % (0-3) Basophils (%) (Auto) 1 % (0-3) Neutrophils # (Auto) 3.0 x10^3/uL (1.8-7.7) Lymphocytes # (Auto) 2.4 x10^3/uL (1.0-4.8) Monocytes # (Auto) 0.6 x10^3/uL (0.0-1.1) Eosinophils # (Auto) 0.1 x10^3/uL (0.0-0.7) Basophils # (Auto) 0.0 x10^3/uL (0.0-0.2) Sodium Level 142 mmol/L (136-145) Potassium Level 3.9 mmol/L (3.5-5.1) Chloride Level 105 mmol/L (98-107) Carbon Dioxide Level 29 mmol/L (21-32) Anion Gap 8 (6-14) Blood Urea Nitrogen 14 mg/dL (8-26) Creatinine 1.2 mg/dL (0.7-1.3) Estimated GFR (Cockcroft-Gault) 73.8 Glucose Level 84 mg/dL (70-99) Calcium Level 8.9 mg/dL (8.5-10.1) Laboratory Tests 07/21/20 04:07 Laboratory Tests 07/21/20 04:07 Vital Signs: Vital Signs Date Time Temp Pulse Resp B/P (MAP) Pulse Ox O2 Delivery O2 Flow Rate FiO2 07/21/20 03:00 98.6 78 18 140/75 (96) 100 Room Air 98.6 EKG: EKG: [] Radiology/Procedures: Radiology/Procedures: [] Course & Med Decision Making: Course & Med Decision Making Pertinent Labs and Imaging studies reviewed. (See chart for details) Patient is 24-year-old male who presents to the emergency room concerned that he could have given himself a stroke yesterday. Patient is well outside the window for stroke protocol. CT head was done to rule out a subacute stroke and was negative. Labs are normal. Patient is eating and walking around without difficulty. He will be discharged home with follow-up with a primary care physician. Patient's test results and vitals while in the ED were fully reviewed and discussed with the patient. Patient is stable and at this time does not need admission to the hospital. We have discussed strict return precautions and the importance of following up with their Primary Care Physician. Patient stated understanding and was given an opportunity to ask any questions. Patient is in agreement with plan. Yanna Disclaimer: Yanna Disclaimer: This electronic medical record was generated, in whole or in part, using a voice recognition dictation system. Departure Departure Impression: Primary Impression: Drug abuse Disposition: HOME, SELF-CARE Condition: STABLE Referrals: NO PCP (PCP) Patient Instructions: Methamphetamine Abuse, Complications Justicifation of Admission Dx: Justifications for Admission: Justification of Admission Dx: N/A GUERDA BRICEÑO MD Jul 21, 2020 04:58
[2020-07-21 06:30] VITALS: BP 112/55
[2020-07-21 06:45] LABS: BARBITURATES NEG (NEG); BENZODIAZEPINES NEG (NEG); CANNABINOIDS NEG (NEG); COCAINE POS (NEG); METHADONE NEG (NEG); OPIATES NEG (NEG); PHENCYCLIDINE NEG (NEG)
[2020-07-21 06:52] LABS: AMPHETAMINE/METHAMPHETAMINE POS (NEG)
== END 2020-07-21 08:36 | disposition home or self-care (01) ==
LOC: ER 02:34
DX: F15.10 Other stimulant abuse, uncomplicated (principal); R41.0 Disorientation, unspecified; F17.200 Nicotine dependence, unspecified, uncomplicated; F12.90 Cannabis use, unspecified, uncomplicated; F14.90 Cocaine use, unspecified, uncomplicated; F10.10 Alcohol abuse, uncomplicated; Z98.890 Other specified postprocedural states; Z90.89 Acquired absence of other organs; Z88.0 Allergy status to penicillin
CPT/HCPCS: 36415; 70450; 80048; 80307; 85025; 96360; 99285; J7030

== ENCOUNTER 2020-07-23 19:36 | Emergency (ER) | payer SELFPAY | END 2020-07-23 19:50 | disposition left against medical advice (07) | LOC: ER 19:36 | DX: R42 Dizziness and giddiness (principal); R20.0 Anesthesia of skin; F15.90 Other stimulant use, unspecified, uncomplicated; Z53.21 Procedure and treatment not carried out due to patient leaving prior to being seen by health care provider ==

== ENCOUNTER 2020-09-17 13:17 | Emergency (ER) | payer SELFPAY ==
[~2020-09-17] VITALS: Ht 182.9 cm; Wt 81.8 kg
--- NOTE | 2020-09-17 13:51 | PHYS DOC ---
Past Medical History Past Medical History: Alcoholism, Other Additional Past Medical Histor: GOUT (CAROL [employer]AUR [employer]) Past Surgical History: Tonsillectomy, Other Additional Past Surgical Histo: KNEE INJECTION , LEFT ([employer]OL [employer]) Smoking Status: Current Every Day Smoker Alcohol Use: Heavy Drug Use: Cocaine, Marijuana, Methamphetamine Social History Narrative: CRACK ([employer]OL [employer]) General Adult EDM: Chief Complaint: SUICDAL IDEATION HPI: HPI: Patient is a 25 year old male who presents with states about a month ago he was released from [facility] and since then has been smoking crack and drinking a handle a day. Patient states that he is "very shaky and has been smoking crack all night". Patient states he "does not know what to do when he wants to stop but he does not know what to do and he wants it all to end". Patient states he is willing to go to a rehab facility and he has been to [facility] before. Patient's plan was to take a bottle of Tylenol and drink a lot of alcohol to kill himself. ([employer]OL [employer]) Review of Systems: Review of Systems: Constitutional: Denies fever or chills. [] Eyes: Denies change in visual acuity. [] HENT: Denies nasal congestion or sore throat. [] Respiratory: Denies cough or shortness of breath. [] Cardiovascular: Denies chest pain or edema. [] GI: Denies abdominal pain, nausea, vomiting, bloody stools or diarrhea. [] : Denies dysuria. [] Musculoskeletal: Denies back pain or joint pain. + Tremors [] Integument: Denies rash. [] Neurologic: + headache, denies focal weakness or sensory changes. [] Endocrine: Denies polyuria or polydipsia. [] Lymphatic: Denies swollen glands. [] Psychiatric: Denies depression or anxiety. +Suicidal ideation, drug abuse and alcoholism [] ([employer]) Heart Score: Risk Factors: Risk Factors: DM, Current or recent (<one month) smoker, HTN, HLP, family history of CAD, obesity. Risk Scores: Score 0 - 3: 2.5% MACE over next 6 weeks - Discharge Home Score 4 - 6: 20.3% MACE over next 6 weeks - Admit for Clinical Observation Score 7 - 10: 72.7% MACE over next 6 weeks - Early Invasive Strategies ([facility]) Allergies: Allergies: Allergies Coded Allergies Type Severity Reaction Last Updated Verified Penicillins Allergy Intermediate Rash 03/02/14 Yes (CAROL KAUR APRN) Physical Exam: PE: Constitutional: Well developed, well nourished, no acute distress, non-toxic appearance. [] HENT: Normocephalic, atraumatic, bilateral external ears normal, oropharynx moist, no oral exudates, nose normal. [] Eyes: PERRLA, EOMI, conjunctiva normal, no discharge. [] Neck: Normal range of motion, no tenderness, supple, no stridor. [] Cardiovascular:Heart rate regular rhythm, no murmur [] Lungs & Thorax: Bilateral breath sounds clear to auscultation [] Abdomen: Bowel sounds normal, soft, no tenderness, no masses, no pulsatile masses. [] Skin: Warm, dry, no erythema, no rash. [] Back: No tenderness, no CVA tenderness. [] Extremities: No tenderness, no cyanosis, no clubbing, ROM intact, no edema. [] Neurologic: Alert and oriented X 3, normal motor function, normal sensory function, no focal deficits noted. [] Psychologic: Affect normal, judgement normal, mood normal. Anxious, suicidal ideation [] ([facility] [employer]) Current Patient Data: Vital Signs: Vital Signs Date Time Temp Pulse Resp B/P (MAP) Pulse Ox O2 Delivery O2 Flow Rate FiO2 09/17/20 13:29 97.9 78 24 122/65 (84) 98 Room Air 97.9 [facility] EKG: EKG: [] ([facility]) Radiology/Procedures: Radiology/Procedures: [] ([facility]) Course & Med Decision Making: Course & Med Decision Making Pertinent Labs and Imaging studies reviewed. (See chart for details) See HPI. Patient is alert and oriented x4. Ambulatory with steady gait. Patient has tremors when he puts his arms out in front of him but otherwise no tremors are seen. Patient denies hallucinations, homicidal ideation, chest pain, shortness of breath, abdominal pain, nausea, vomiting, diarrhea, fever, cough, numbness or tingling, dizziness, vision changes, focal weakness. He states he does have a headache. He rates his aching headache at a 6 out of 10 but it is not the worst headache he has ever had. Lungs are clear to auscultation all lobes. Speaks in full complete sentences. I have spoken to Shane with PAT team and he is coming in to speak with the patient. Howard has spoken to the patient and the patient will be transferred to [facility]. Patient agrees to this. He is medically cleared. He is positive for cocaine but not alcohol. He was given Ativan 0.25 mg in the ED. [] (CAROL KAUR APRN) Dragon Disclaimer: Dragon Disclaimer: This electronic medical record was generated, in whole or in part, using a voice recognition dictation system. (CAROL KAUR APRN) Departure Departure Impression: Primary Impression: Alcoholism Additional Impressions: Suicidal ideation Drug use Disposition: 65 DC/TRF TO PSYCH HOSP Condition: STABLE Referrals: NO PCP (PCP) Attending Signature Attending Signature I have reviewed the PA/ATHLETIC COACH's note and plan of care. I was available for consultation as needed during the patient's visit in the emergency department. I agree with the clinical impression, plan, and disposition. (PRANAV GALEAS DO) CAROL KAUR APRN Sep 17, 2020 13:50 PRANAV GALEAS DO Sep 18, 2020 06:42
[2020-09-17 13:54] LABS: BILIRUBIN,URINE NEGATIVE (NEG); CLARITY,URINE CLEAR; COLOR,URINE YELLOW; NITRITE,URINE NEGATIVE (NEG); PH,URINE 5.5 (<5.0-8.0); PROTEIN,URINE NEGATIVE (NEG-TRACE)
[2020-09-17 14:00] LABS: BARBITURATES NEG (NEG); BENZODIAZEPINES NEG (NEG); CANNABINOIDS NEG (NEG); COCAINE POS (NEG); METHADONE NEG (NEG); OPIATES NEG (NEG); PHENCYCLIDINE NEG (NEG)
[2020-09-17 14:01] LABS: AMPHETAMINE/METHAMPHETAMINE NEG (NEG)
[2020-09-17 14:03] LABS: BASO % 1 % (0-3); EOS # 0.1 x10^3/uL (0.0-0.7); EOS % 2 % (0-3); HEMOGLOBIN 14.6 g/dL (13.0-17.5); LYMPH # 1.4 x10^3/uL (1.0-4.8); LYMPH % 36 % (24-48); MEAN CORPUSCULAR HEMOGLOBIN 31 pg (25-35); MEAN CORPUSCULAR HGB CONC 34 g/dL (31-37); MEAN CORPUSCULAR VOLUME 90 fL (79-100); MONO # 0.5 x10^3/uL (0.0-1.1); MONO % 13 % (0-9); NEUT # 1.9 x10^3/uL (1.8-7.7); NEUT % 49 % (31-73); PLATELET COUNT 258 x10^3/uL (140-400); RED BLOOD COUNT 4.79 x10^6/uL (4.30-5.70); RED CELL DISTRIBUTION WIDTH 13.4 % (11.5-14.5); WHITE BLOOD COUNT 3.9 x10^3/uL (4.0-11.0)
[2020-09-17 14:05] LABS: BACTERIA,URINE 0 /HPF (0-FEW); RBC,URINE 0 /HPF (0-2); WBC,URINE 0 /HPF (0-4)
[2020-09-17 14:14] LABS: CALCIUM 8.7 mg/dL (8.5-10.1); CREATININE 1.2 mg/dL (0.7-1.3); GFR 73.2
[2020-09-17 14:17] LABS: ACETAMIN < 2.0 mcg/ml (10-30); ETHANOL < 10 mg/dL (0-10); SALIC < 2.8 mg/dL (2.8-20.0)
[2020-09-17 14:18] LABS: ALBUMIN 3.6 g/dL (3.4-5.0); ALBUMIN/GLOBULIN RATIO 1.1 (1.0-1.7); MAGNESIUM 2.1 mg/dL (1.8-2.4); TOTAL BILIRUBIN 0.5 mg/dL (0.2-1.0); TOTAL PROTEIN 6.9 g/dL (6.4-8.2)
[2020-09-17] MEDS ORDERED: LORazepam 0.5 MG TABLET PO ONE (14:30)
[2020-09-17 18:30] VITALS: BP 117/61
== END 2020-09-17 18:42 ==
LOC: ER 13:17
DX: R45.851 Suicidal ideations (principal); F10.20 Alcohol dependence, uncomplicated; R51.9 Headache, unspecified; R25.1 Tremor, unspecified; F17.200 Nicotine dependence, unspecified, uncomplicated; F12.90 Cannabis use, unspecified, uncomplicated; F14.90 Cocaine use, unspecified, uncomplicated; F19.90 Other psychoactive substance use, unspecified, uncomplicated; Z90.89 Acquired absence of other organs; Z98.890 Other specified postprocedural states
CPT/HCPCS: 36415; 80053; 80307; 80329; 81001; 83690; 83735; 85025; 99285; G0480

== ENCOUNTER 2020-10-02 09:35 | Emergency (ER) | payer SELFPAY ==
[~2020-10-02] VITALS: Ht 185.4 cm; Wt 84.0 kg
[~2020-10-02 09:35] MED LIST changes: -CLIN300C8 PO; +CLIN300C9 PO
[2020-10-02 09:51] VITALS: BP 117/55
--- NOTE | 2020-10-02 09:57 | PHYS DOC ---
Past Medical History Past Medical History: Alcoholism, Other Additional Past Medical Histor: GOUT Past Surgical History: Tonsillectomy, Other Additional Past Surgical Histo: KNEE INJECTION , LEFT Smoking Status: Current Every Day Smoker Alcohol Use: Heavy Drug Use: Cocaine, Marijuana, Methamphetamine General Adult EDM: Chief Complaint: CHEST PAIN HPI: HPI: Patient is a 25 year old male who presents with 5 AM this morning began having left-sided sharp constant chest pain with some shortness of breath. He states he smoked cocaine at 1:00 this morning. States yesterday he had 2 beers. He is asking to have the PAT team come in and set him up with detox. Patient rates his pain a 5 out of 10 and states that it does not radiate. Patient has a history of alcoholism, drug use, suicidal ideation, smoker and gout. Review of Systems: Review of Systems: Constitutional: Denies fever or chills. [] Eyes: Denies change in visual acuity. [] HENT: Denies nasal congestion or sore throat. [] Respiratory: Denies cough. + shortness of breath. [] Cardiovascular: +chest pain or denies edema. [] GI: Denies abdominal pain, nausea, vomiting, bloody stools or diarrhea. [] : Denies dysuria. [] Musculoskeletal: Denies back pain or joint pain. [] Integument: Denies rash. [] Neurologic: Denies headache, focal weakness or sensory changes. [] Endocrine: Denies polyuria or polydipsia. [] Lymphatic: Denies swollen glands. [] Psychiatric: Denies depression or anxiety. [] Heart Score: HEART Score for Chest Pain: HEART Score for Chest Pain Response (Comments) Value History Slighlty/Non-Suspicious 0 ECG Nonspecific Repolarizatio 1 Age < 45 0 Risk Factors 1 or 2 Risk Factors 1 Troponin < Normal Limit 0 Total 2 Risk Factors: Risk Factors: DM, Current or recent (<one month) smoker, HTN, HLP, family history of CAD, obesity. Risk Scores: Score 0 - 3: 2.5% MACE over next 6 weeks - Discharge Home Score 4 - 6: 20.3% MACE over next 6 weeks - Admit for Clinical Observation Score 7 - 10: 72.7% MACE over next 6 weeks - Early Invasive Strategies Allergies: Allergies: Allergies Coded Allergies Type Severity Reaction Last Updated Verified Penicillins Allergy Intermediate Rash 03/02/14 Yes Physical Exam: PE: Constitutional: Well developed, well nourished, no acute distress, non-toxic appearance. [] HENT: Normocephalic, atraumatic, bilateral external ears normal, oropharynx moist, no oral exudates, nose normal. [] Eyes: PERRLA, EOMI, conjunctiva normal, no discharge. [] Neck: Normal range of motion, no tenderness, supple, no stridor. [] Cardiovascular:Heart rate regular rhythm with peak t waves, no murmur [] Lungs & Thorax: Bilateral breath sounds clear to auscultation [] Abdomen: Bowel sounds normal, soft, no tenderness, no masses, no pulsatile masses. [] Skin: Warm, dry, no erythema, no rash. [] Back: No tenderness, no CVA tenderness. [] Extremities: No tenderness, no cyanosis, no clubbing, ROM intact, no edema. [] Neurologic: Alert and oriented X 3, normal motor function, normal sensory function, no focal deficits noted. [] Psychologic: Affect normal, judgement normal, mood normal. [] EKG: EK and read by Dr Sequeira as Sinus Rhythm and no STEMI with peak T waves Radiology/Procedures: Radiology/Procedures: [] Impression: [facility] [address] [place] [address] IMAGING REPORT Signed PATIENT: CESAR BARRIOS AACCOUNT: [id number] : 1995 LOCATION: ER AGE: 25 SEX: M EXAM STATUS: REG ER ORD. PHYSICIAN: CAROL KAUR APRN REASON: chest pain PROCEDURE: PORTABLE CHEST 1V INDICATION: Reason: chest pain / Spl. Instructions: / History: COMPARISON: March 13, 2018 FINDINGS: Single view of chest obtained. Cardiac silhouette is unremarkable. Mildly prominent interstitial markings bilaterally. IMPRESSION: * Minimal interstitial prominence. This is a questionable finding but causes such as bronchitis or mild interstitial infiltrate is not excluded. Mild pulmonary vascular congestion can also have this appearance but would be uncommon in a patient of this age without history of cardiovascular disease. Electronically signed by: Nola Bell MD (10/02/2020 10:10 AM) [id number] DICTATED and SIGNED BY: NOLA BELL MD DATE: 10/02/20 [id number] [facility] [address] [place] [address] IMAGING REPORT Signed PATIENT: CESAR BARRIOS AACCOUNT: [id number] : 1995 LOCATION: ER AGE: 25 SEX: M EXAM STATUS: REG ER ORD. PHYSICIAN: CAROL KAUR APRN REASON: ELEVATED LFT AND LIPASE, REFERRED CHEST PAIN, HX ETOH PROCEDURE: CT ABD PELV W/ IV CONTRST ONLY Exam: CT abdomen/pelvis with intravenous contrast Indication: Elevated LFTs and lipase, referred chest pain. History of alcohol abuse. Comparison: None Technique: Helical CT imaging performed of the abdomen and pelvis after the intravenous administration of 75 mL Omnipaque 300 intravenous contrast. Sagittal and coronal reformats were obtained. One or more of the following individualized dose reduction techniques were utilized for this examination: 1. Automated exposure control 2. Adjustment of the mA and/or kV according to patient size 3. Use of iterative reconstruction technique. Findings: Lower chest: Lung bases are clear. The heart is normal in size. Liver: The liver is normal in size measuring 17 cm craniocaudally. No focal liver lesion. Normal hepatic echogenicity. Main pulmonary artery is at the upper limit of normal in caliber measuring 1.5 cm in diameter. Gallbladder/Biliary Tree: Gallbladder is contracted. Bile ducts are normal. Pancreas: Normal. Spleen: Normal. No splenomegaly. Adrenal Glands: Normal. Kidneys/Ureters/Bladder: Normal. Reproductive Organs: Prostate gland is normal. Stomach, small bowel, and colon: Stomach is mildly distended. No small bowel obstruction. Colon is normal. Appendix is normal. Large volume stool. Vasculature: Abdominal aorta and inferior vena cava are normal in caliber. Lymph Nodes: No lymphadenopathy. Peritoneum and retroperitoneum: Small amount of free fluid in the pelvis. Bones: No acute osseous abnormality. Impression: 1. No acute intra-abdominal/pelvic abnormality. 2. Small amount of free fluid in the pelvis. Electronically signed by: Luli Galvan MD (10/02/2020 12:11 PM) [id number] DICTATED and SIGNED BY: LULI GALVAN MD DATE: 10/02/20 [id number] 0 Course & Med Decision Making: Course & Med Decision Making Pertinent Labs and Imaging studies reviewed. (See chart for details) Speaks in full clear symptoms. Ambulatory with a steady gait. No extremity edema. Skin pink warm and dry. Alert and oriented x4. Patient's EKG is sinus rhythm but he does have peaked T waves. Abdomen is soft and nontender tender. He denies any nausea or vomiting. His LFTs are elevated but this is probably due to chronic pancreatitis from his alcoholism. Troponin is normal. BNP is slightly elevated at 133. PAT team is called to come and evaluate the patient. Denies SI or HI. No hallucinations. Chest x-ray shows: IMPRESSION: * Minimal interstitial prominence. This is a questionable finding but causes such as bronchitis or mild interstitial infiltrate is not excluded. Mild pulmonary vascular congestion can also have this appearance but would be uncommon in a patient of this age without history of cardiovascular disease. CT showed no acute findings. Shane with PAT team is here to see the patient and to find rehab facility for the patient. Patient has been accepted to [facility] and will be getting a cab pass to [facility] and will stay there overnight and Girma Berrios is paying for it and then a cab will come and get him in the morning and taken to the sobering [place]. Patient is stable and is discharged. [] Yanna Disclaimer: Yanna Disclaimer: This electronic medical record was generated, in whole or in part, using a voice recognition dictation system. Departure Departure Impression: Primary Impression: Alcoholism Additional Impressions: Drug use Chest pain Qualified Codes: R07.9 - Chest pain, unspecified Disposition: 01 DC HOME SELF CARE/HOMELESS Condition: STABLE Referrals: NO PCP (PCP) Patient Instructions: Alcohol Problems, Substance Abuse-Brief Additional Instructions: Go to the rehab sobering [place] when the cab comes and gets you in the morning. Stop drug and alcohol use. CAROL KAUR [employer]K PLANT AGENT Oct 02, 2020 09:57
[2020-10-02 10:00] LABS: BASO % 1 % (0-3); EOS # 0.1 x10^3/uL (0.0-0.7); EOS % 2 % (0-3); HEMATOCRIT 44.7 % (39.0-53.0); HEMOGLOBIN 14.9 g/dL (13.0-17.5); LYMPH # 1.5 x10^3/uL (1.0-4.8); LYMPH % 35 % (24-48); MEAN CORPUSCULAR HEMOGLOBIN 30 pg (25-35); MEAN CORPUSCULAR HGB CONC 33 g/dL (31-37); MEAN CORPUSCULAR VOLUME 91 fL (79-100); MONO # 0.4 x10^3/uL (0.0-1.1); MONO % 10 % (0-9); NEUT # 2.2 x10^3/uL (1.8-7.7); NEUT % 52 % (31-73); PLATELET COUNT 260 x10^3/uL (140-400); RED BLOOD COUNT 4.94 x10^6/uL (4.30-5.70); RED CELL DISTRIBUTION WIDTH 13.4 % (11.5-14.5); WHITE BLOOD COUNT 4.2 x10^3/uL (4.0-11.0)
[2020-10-02] MEDS ORDERED: ASPIRIN 325 MG TABLET PO ONE (10:00)
[2020-10-02] MEDS ORDERED: IV NORMAL SALINE 1000ML BAG 1,000 ML IV ONE (10:00)
[2020-10-02 10:05] LABS: BILIRUBIN,URINE NEGATIVE (NEG); CLARITY,URINE CLEAR; COLOR,URINE YELLOW; NITRITE,URINE NEGATIVE (NEG); PH,URINE 5.5 (<5.0-8.0); PROTEIN,URINE NEGATIVE (NEG-TRACE); UROBILINOGEN,URINE 0.2 mg/dL (0.2 mg/dL)
[2020-10-02 10:08] LABS: CREATININE 1.1 mg/dL (0.7-1.3); GFR 80.9; POTASSIUM 4.1 mmol/L (3.5-5.1); PROTHROMBIN TIME PATIENT 14.3 SEC (11.7-14.0)
[2020-10-02 10:13] LABS: ALBUMIN 3.7 g/dL (3.4-5.0); ALBUMIN/GLOBULIN RATIO 1.2 (1.0-1.7); TOTAL BILIRUBIN 0.5 mg/dL (0.2-1.0); TOTAL PROTEIN 6.8 g/dL (6.4-8.2)
--- NOTE | 2020-10-02 10:13 | RAD ---
INDICATION: Reason: chest pain / Spl. Instructions: / History: COMPARISON: March 13, 2018 FINDINGS: Single view of chest obtained. Cardiac silhouette is unremarkable. Mildly prominent interstitial markings bilaterally. IMPRESSION: * Minimal interstitial prominence. This is a questionable finding but causes such as bronchitis or mild interstitial infiltrate is not excluded. Mild pulmonary vascular congestion can also have this appearance but would be uncommon in a patient of this age without history of cardiovascular disease. Electronically signed by: Chapito Montero MD (10/02/2020 10:10 AM) [id number]
[2020-10-02 10:15] LABS: AMPHETAMINE/METHAMPHETAMINE NEG (NEG); BARBITURATES NEG (NEG); BENZODIAZEPINES NEG (NEG); CANNABINOIDS NEG (NEG); COCAINE POS (NEG); METHADONE NEG (NEG); OPIATES NEG (NEG); PHENCYCLIDINE NEG (NEG)
[2020-10-02 10:16] LABS: BACTERIA,URINE 0 /HPF (0-FEW); RBC,URINE 0 /HPF (0-2); WBC,URINE 0 /HPF (0-4)
[2020-10-02 10:52] LABS: ACETAMIN < 2 mcg/ml (10-30); SALIC < 2.8 mg/dL (2.8-20.0)
[2020-10-02] MEDS ORDERED: IOHEXOL 300 MG/ML 100ML VIAL. IV ONE (11:30)
[2020-10-02] MEDS ORDERED: CONTRAST GIVEN. MC PRN (11:30)
--- NOTE | 2020-10-02 12:14 | RAD ---
Exam: CT abdomen/pelvis with intravenous contrast Indication: Elevated LFTs and lipase, referred chest pain. History of alcohol abuse. Comparison: None Technique: Helical CT imaging performed of the abdomen and pelvis after the intravenous administration of 75 mL Omnipaque 300 intravenous contrast. Sagittal and coronal reformats were obtained. One or more of the following individualized dose reduction techniques were utilized for this examination: 1. Automated exposure control 2. Adjustment of the mA and/or kV according to patient size 3. Use of iterative reconstruction technique. Findings: Lower chest: Lung bases are clear. The heart is normal in size. Liver: The liver is normal in size measuring 17 cm craniocaudally. No focal liver lesion. Normal hepatic echogenicity. Main pulmonary artery is at the upper limit of normal in caliber measuring 1.5 cm in diameter. Gallbladder/Biliary Tree: Gallbladder is contracted. Bile ducts are normal. Pancreas: Normal. Spleen: Normal. No splenomegaly. Adrenal Glands: Normal. Kidneys/Ureters/Bladder: Normal. Reproductive Organs: Prostate gland is normal. Stomach, small bowel, and colon: Stomach is mildly distended. No small bowel obstruction. Colon is normal. Appendix is normal. Large volume stool. Vasculature: Abdominal aorta and inferior vena cava are normal in caliber. Lymph Nodes: No lymphadenopathy. Peritoneum and retroperitoneum: Small amount of free fluid in the pelvis. Bones: No acute osseous abnormality. Impression: 1. No acute intra-abdominal/pelvic abnormality. 2. Small amount of free fluid in the pelvis. Electronically signed by: Luli Galvan MD (10/02/2020 12:11 PM) [id number]
== END 2020-10-02 14:24 | disposition home or self-care (01) ==
LOC: ER 09:35
DX: R07.89 Other chest pain (principal); R06.02 Shortness of breath; F10.10 Alcohol abuse, uncomplicated; F17.200 Nicotine dependence, unspecified, uncomplicated; F12.90 Cannabis use, unspecified, uncomplicated; F14.90 Cocaine use, unspecified, uncomplicated; F19.90 Other psychoactive substance use, unspecified, uncomplicated; Z98.890 Other specified postprocedural states; Z90.89 Acquired absence of other organs; Z88.0 Allergy status to penicillin
CPT/HCPCS: 36415; 71045; 74177; 80053; 80307; 80329; 81001; 83690; 83735; 83880; 84484; 85025; 85610; 93005; 96360; 99285; G0480; J7030; Q9967

== ENCOUNTER 2021-01-01 07:39 | Emergency (ER) | payer SELFPAY ==
[~2021-01-01] VITALS: Ht 182.9 cm; Wt 84.0 kg
[2021-01-01 08:00] LABS: BASO % 1 % (0-3); EOS % 0 % (0-3); HEMATOCRIT 44.5 % (39.0-53.0); HEMOGLOBIN 14.9 g/dL (13.0-17.5); LYMPH # 2.1 x10^3/uL (1.0-4.8); LYMPH % 30 % (24-48); MEAN CORPUSCULAR HEMOGLOBIN 30 pg (25-35); MEAN CORPUSCULAR HGB CONC 34 g/dL (31-37); MEAN CORPUSCULAR VOLUME 90 fL (79-100); MONO % 14 % (0-9); NEUT % 56 % (31-73); PLATELET COUNT 239 x10^3/uL (140-400); RED BLOOD COUNT 4.94 x10^6/uL (4.30-5.70); RED CELL DISTRIBUTION WIDTH 13.9 % (11.5-14.5); WHITE BLOOD COUNT 7.1 x10^3/uL (4.0-11.0)
[2021-01-01] MEDS ORDERED: IV NORMAL SALINE 1000ML BAG 1,000 ML IV SCH (08:00)
--- NOTE | 2021-01-01 08:16 | EKG ---
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
[2021-01-01 08:18] LABS: CALCIUM 8.8 mg/dL (8.5-10.1); CREATININE 1.2 mg/dL (0.7-1.3); GFR 73.2; POTASSIUM 3.6 mmol/L (3.5-5.1)
[2021-01-01 08:22] LABS: ALBUMIN 4.4 g/dL (3.4-5.0); DIRECT BILIRUBIN 0.5 mg/dL (0.0-0.2); MAGNESIUM 2.1 mg/dL (1.8-2.4); TOTAL BILIRUBIN 1.4 mg/dL (0.2-1.0); TOTAL PROTEIN 7.8 g/dL (6.4-8.2)
[2021-01-01 08:23] LABS: ACETAMIN < 2 mcg/ml (10-30); ETHANOL < 10 mg/dL (0-10); SALIC < 2.8 mg/dL (2.8-20.0)
[2021-01-01] MEDS ORDERED: NALOXONE 2 MG/2 ML DISP.SYRIN. IV ONE (08:30)
--- NOTE | 2021-01-01 08:33 | PHYS DOC ---
Past Medical History Past Medical History: No Pertinent History Additional Past Medical Histor: GOUT Past Surgical History: No Surgical History Additional Past Surgical Histo: KNEE INJECTION , LEFT Smoking Status: Current Some Day Smoker Alcohol Use: Occasionally Drug Use: Cocaine, Marijuana, Methamphetamine General Adult EDM: Chief Complaint: OVERDOSE HPI: HPI: Patient is a 25 year old male who was brought here by EMS from a local hotel due to drug overdose. Patient said he has been doing fentanyl, crack cocaine, and methamphetamine since yesterday. Patient did not do well so he called EMS to take him here for evaluation. Per report, on route patient became apneic. He did not lose his pulse, EMS gave him 1 mg of Narcan, patient woke up. Patient expressed suicidal ideation. Patient said he has not no live for. Patient has been evaluated here multiple times for drug overdose. Patient is homeless. Patient denies any chest pain, no abdominal pain, no nausea vomiting. Patient denies headache. Review of Systems: Review of Systems: Constitutional: Denies fever or chills. [] Eyes: Denies change in visual acuity. [] HENT: Denies nasal congestion or sore throat. [] Respiratory: Denies cough or shortness of breath. [] Cardiovascular: Denies chest pain or edema. [] GI: Denies abdominal pain, nausea, vomiting, bloody stools or diarrhea. [] : Denies dysuria. [] Musculoskeletal: Denies back pain or joint pain. [] Integument: Denies rash. [] Neurologic: Denies headache, focal weakness or sensory changes. [] Endocrine: Denies polyuria or polydipsia. [] Lymphatic: Denies swollen glands. [] Psychiatric: Positive for depression, suicidal ideation Heart Score: Risk Factors: Risk Factors: DM, Current or recent (<one month) smoker, HTN, HLP, family history of CAD, obesity. Risk Scores: Score 0 - 3: 2.5% MACE over next 6 weeks - Discharge Home Score 4 - 6: 20.3% MACE over next 6 weeks - Admit for Clinical Observation Score 7 - 10: 72.7% MACE over next 6 weeks - Early Invasive Strategies Current Medications: Current Medications Medications (Trade) Dose Ordered Sig/Lanette Start Time Stop Time Status Last Admin Dose Admin Naloxone HCl (NARCAN 2mg SYRINGE) 2 mg 1X ONCE 01/01/21 08:30 01/01/21 08:31 Sodium Chloride 1,000 ml @ 1,000 mls/hr Q1H 01/01/21 08:00 01/01/21 08:59 01/01/21 08:01 1,000 MLS/HR Allergies: Allergies: Allergies Coded Allergies Type Severity Reaction Last Updated Verified Penicillins Allergy Intermediate Rash 03/02/14 Yes Physical Exam: PE: Constitutional: Well developed, well nourished, no acute distress, non-toxic appearance. [] HENT: Normocephalic, atraumatic, bilateral external ears normal, oropharynx moist, no oral exudates, nose normal. [] Eyes: PERRLA, EOMI, conjunctiva normal, no discharge. [] Neck: Normal range of motion, no tenderness, supple, no stridor. [] Cardiovascular:Heart rate regular rhythm, no murmur [] Lungs & Thorax: Bilateral breath sounds clear to auscultation [] Abdomen: Bowel sounds normal, soft, no tenderness, no masses, no pulsatile masses. [] Skin: Warm, dry, no erythema, no rash. [] Back: No tenderness, no CVA tenderness. [] Extremities: No tenderness, no cyanosis, no clubbing, ROM intact, no edema. [] Neurologic: Alert and oriented X 3, normal motor function, normal sensory function, no focal deficits noted. [] Psychologic: Affect normal, judgement normal, mood normal. Positive for suicidal ideation Current Patient Data: Labs: Laboratory Tests Test 01/01/21 07:50 White Blood Count 7.1 x10^3/uL (4.0-11.0) Red Blood Count 4.94 x10^6/uL (4.30-5.70) Hemoglobin 14.9 g/dL (13.0-17.5) Hematocrit 44.5 % (39.0-53.0) Mean Corpuscular Volume 90 fL (79-100) Mean Corpuscular Hemoglobin 30 pg (25-35) Mean Corpuscular Hemoglobin Concent 34 g/dL (31-37) Red Cell Distribution Width 13.9 % (11.5-14.5) Platelet Count 239 x10^3/uL (140-400) Neutrophils (%) (Auto) 56 % (31-73) Lymphocytes (%) (Auto) 30 % (24-48) Monocytes (%) (Auto) 14 % (0-9) H Eosinophils (%) (Auto) 0 % (0-3) Basophils (%) (Auto) 1 % (0-3) Neutrophils # (Auto) 4.0 x10^3/uL (1.8-7.7) Lymphocytes # (Auto) 2.1 x10^3/uL (1.0-4.8) Monocytes # (Auto) 1.0 x10^3/uL (0.0-1.1) Eosinophils # (Auto) 0.0 x10^3/uL (0.0-0.7) Basophils # (Auto) 0.0 x10^3/uL (0.0-0.2) Sodium Level 142 mmol/L (136-145) Potassium Level 3.6 mmol/L (3.5-5.1) Chloride Level 101 mmol/L (98-107) Carbon Dioxide Level 28 mmol/L (21-32) Anion Gap 13 (6-14) Blood Urea Nitrogen 13 mg/dL (8-26) Creatinine 1.2 mg/dL (0.7-1.3) Estimated GFR (Cockcroft-Gault) 73.2 Glucose Level 101 mg/dL (70-99) H Calcium Level 8.8 mg/dL (8.5-10.1) Magnesium Level 2.1 mg/dL (1.8-2.4) Total Bilirubin 1.4 mg/dL (0.2-1.0) H Direct Bilirubin 0.5 mg/dL (0.0-0.2) H Aspartate Amino Transferase (AST) 136 U/L (15-37) H Alanine Aminotransferase (ALT) 487 U/L (16-63) H Alkaline Phosphatase 83 U/L (46-116) Total Protein 7.8 g/dL (6.4-8.2) Albumin 4.4 g/dL (3.4-5.0) Salicylates Level < 2.8 mg/dL (2.8-20.0) L Salicylate Last Dose Date Unknown Salicylate Last Dose Time Unknown Acetaminophen Level < 2 mcg/ml (10-30) L Acetaminophen Last Dose Date Unknown Acetaminophen Last Dose Time Unknown Ethyl Alcohol Level < 10 mg/dL (0-10) Laboratory Tests 01/01/21 07:50 Laboratory Tests 01/01/21 07:50 Vital Signs: Vital Signs Date Time Temp Pulse Resp B/P (MAP) Pulse Ox O2 Delivery O2 Flow Rate FiO2 01/01/21 07:40 98.5 87 26 156/109 (125) 99 Room Air 98.5 EKG: EKG: [] Radiology/Procedures: Radiology/Procedures: [] Course & Med Decision Making: Course & Med Decision Making Pertinent Labs and Imaging studies reviewed. (See chart for details) Patient is a 25-year-old male who was evaluated in ER due to substance abuse. Patient initially says he was suicidal however later he said he was no longer suicidal. Patient was evaluated by JOE [facility] TEAM, patient is well-known to [facility], denies suicidal ideation. He already has psychiatric treatment team set up for him at [place], recommended discharge home. Patient was observed for 4 hours in the ER and he was awake alert, his vital signs was normal. Dragon Disclaimer: Dragon Disclaimer: This electronic medical record was generated, in whole or in part, using a voice recognition dictation system. Departure Departure Impression: Primary Impression: Drug abuse Additional Impression: Narcotic overdose Disposition: 01 DC HOME SELF CARE/HOMELESS Condition: IMPROVED Referrals: NO PCP (PCP) Patient Instructions: Narcotic Overdose, Substance Abuse-Brief Additional Instructions: [facility] [address] [place] [address] [facility] [address] [place] [address] [facility] [address] [place] [address] [facility] [address] [place] [address] [facility] [address] [place] [address] [facility] [address] [place] [address] [facility] [address] [place] [address] [facility] [address] [place] [address] [facility] [address] [place] [address] [facility] [address] [place] [address] DEBBIE WEI DO Jan 01, 2021 08:33
[2021-01-01] MEDS ORDERED: IV NORMAL SALINE 1000ML BAG 1,000 ML IV ONE (10:00)
[2021-01-01 11:00] VITALS: BP 120/66
== END 2021-01-01 12:12 | disposition home or self-care (01) ==
LOC: ER 07:39
DX: T40.691A Poisoning by other narcotics, accidental (unintentional), initial encounter (principal); F14.10 Cocaine abuse, uncomplicated; F12.10 Cannabis abuse, uncomplicated; F19.10 Other psychoactive substance abuse, uncomplicated; Z98.890 Other specified postprocedural states; Z88.0 Allergy status to penicillin; Y92.89 Other specified places as the place of occurrence of the external cause
CPT/HCPCS: 36415; 80048; 80076; 80329; 83735; 85025; 93005; 96361; 96374; 99285; G0480; J2310; J7030

== ENCOUNTER 2021-01-02 00:35 | Emergency (ER) | payer SELFPAY ==
[~2021-01-02] VITALS: Ht 175.3 cm; Wt 63.6 kg
--- NOTE | 2021-01-02 01:04 | PHYS DOC ---
Past Medical History Additional Past Medical Histor: GOUT Additional Past Surgical Histo: KNEE INJECTION , LEFT Smoking Status: Current Some Day Smoker Alcohol Use: Occasionally Drug Use: Cocaine, Marijuana, Methamphetamine General Adult EDM: Chief Complaint: ALCOHOL INTOXICATION HPI: HPI: Patient is a 25 year old male who presents to the ED via EMS with complaints of shortness of breath and palpitations secondary to oxycodone and fentanyl abuse. Patient had presented earlier on 01/01/21. Patient said he took a pill earlier today that her friend gave him that had oxycodone and fentanyl in it. Patient was given Narcan by EMS and monitored in the ED. Patient had previously been discharged home. Patient reports that he also uses marijuana, crack cocaine, and methamphetamine. Patient reports that he has not slept in the last 3 days as well. Patient now presents via EMS requesting he would like "detox". Patient denies chest pain, nausea, vomiting, or abdominal pain. Patient occasionally drinks alcohol but does not use tobacco products. There are no further complaints this time. Review of Systems: Review of Systems: Constitutional: Denies fever or chills Eyes: Denies redness or eye pain HENT: Denies nasal congestion or sore throat Respiratory: Denies cough or shortness of breath Cardiovascular: Denies chest pain GI: Denies abdominal pain, nausea, or vomiting : Denies dysuria or hematuria Musculoskeletal: Denies back pain or joint pain Integument: Denies rash or skin lesions Neurologic: Denies headache, focal weakness or sensory changes Complete systems were reviewed and found to be within normal limits, except as documented in this note. Current Medications: Current Medications Medications (Trade) Dose Ordered Sig/Lanette Start Time Stop Time Status Last Admin Dose Admin Famotidine (Pepcid Vial) 20 mg 1X ONCE 01/02/21 01:00 01/02/21 01:01 UNV Ondansetron HCl (Zofran) 4 mg 1X ONCE 01/02/21 01:00 01/02/21 01:01 UNV Multivit/ Folic Acid/Iron (Multivitamin ) 1 tab 1X ONCE 01/02/21 01:00 01/02/21 01:01 UNV Sodium Chloride 1,000 ml @ 1,000 mls/hr 1X ONCE 01/02/21 01:00 01/02/21 01:59 UNV Thiamine HCl 100 mg/Dextrose 51 ml @ 102 mls/hr DAILY ONCE 01/02/21 09:00 01/02/21 09:29 UNV Allergies: Allergies: Allergies Coded Allergies Type Severity Reaction Last Updated Verified Penicillins Allergy Intermediate Rash 03/02/14 Yes Physical Exam: PE: Constitutional: Well developed, well nourished, no acute distress, non-toxic appearance HENT: Normocephalic, atraumatic Eyes: Conjunctiva normal, no discharge Neck: Normal range of motion, supple Lungs & Thorax: No respiratory distress, equal chest rise and fall Abdomen: Soft, no tenderness Skin: Warm, dry, erythema to face and bilateral hands Extremities: No tenderness, ROM intact, no edema Neurologic: Alert and oriented X 3, normal motor function, normal sensory function, no focal deficits noted, periodic muscle twitching noted Psychologic: Anxious, appears intoxicated EKG: EK03/01/2021 0125, normal sinus heart rate 63 beats per minute, no ST elevation, QRS 88, QT/QTc 394/406 [] Radiology/Procedures: Radiology/Procedures: PROCEDURE: CHEST AP ONLY EXAM: CHEST ONE VIEW. HISTORY: Shortness of breath. COMPARISON: 10/02/2020. FINDINGS: A frontal view of the chest is obtained. There are no confluent infiltrates. There is no pneumothorax or pleural effusion. The heart is not enlarged. IMPRESSION: 1. No confluent infiltrates. Electronically signed by: London Arroyo MD (01/02/2021 1:27 AM) [facility] Course & Med Decision Making: Course & Med Decision Making Pertinent Labs and Imaging studies reviewed. (See chart for details) Patient with history of multidrug use including methamphetamines, crack cocaine, THC, and recent use of fentynl laced oxycodone with request for help with detox. Lab obtained and posted to chart. EKG stable. CXR without acute process. Patient medically cleared for psychiatric assessment team evaluation. Connie CONTRERAS) evaluated patient and was able to find bed for detox at [facility] in [place]. Patient monitored in ED until more clinically sober. Patient stable for discharge to [facility]. Taxi provided to [facility]. Discussed findings and plan with patient, who acknowledges understanding and agreement. Yanna Disclaimer: Yanna Disclaimer: This electronic medical record was generated, in whole or in part, using a voice recognition dictation system. Departure Departure Impression: Primary Impression: Drug abuse Disposition: 01 DC HOME SELF CARE/HOMELESS (to [facility]) Condition: STABLE Referrals: NO PCP (PCP) Patient Instructions: Alcohol and Drug Addiction, Finding Treatment, Drug Abuse, FAQs Additional Instructions: Present directly to [facility] for help with detoxification from your drug addiction. PRANAV GALEAS DO Jan 02, 2021 01:03
[2021-01-02 01:16] LABS: BASO % 1 % (0-3); EOS # 0.1 x10^3/uL (0.0-0.7); EOS % 2 % (0-3); HEMATOCRIT 40.6 % (39.0-53.0); HEMOGLOBIN 13.7 g/dL (13.0-17.5); LYMPH # 2.1 x10^3/uL (1.0-4.8); LYMPH % 35 % (24-48); MEAN CORPUSCULAR HEMOGLOBIN 31 pg (25-35); MEAN CORPUSCULAR HGB CONC 34 g/dL (31-37); MEAN CORPUSCULAR VOLUME 90 fL (79-100); MONO % 17 % (0-9); NEUT # 2.8 x10^3/uL (1.8-7.7); NEUT % 46 % (31-73); PLATELET COUNT 212 x10^3/uL (140-400); RED CELL DISTRIBUTION WIDTH 13.8 % (11.5-14.5); WHITE BLOOD COUNT 6.1 x10^3/uL (4.0-11.0)
[2021-01-02 01:29] LABS: CALCIUM 8.2 mg/dL (8.5-10.1); CREATININE 1.1 mg/dL (0.7-1.3); GFR 80.9; POTASSIUM 4.3 mmol/L (3.5-5.1)
[2021-01-02] MEDS ORDERED: ONDANSETRON PF 4 MG/2 ML VIAL. IVP ONE (01:30)
[2021-01-02] MEDS ORDERED: PRENATAL MULTIVITAMIN TABLET. PO ONE (01:30)
[2021-01-02] MEDS ORDERED: FAMOTIDINE 20 MG/2 ML VIAL IVP ONE (01:30)
[2021-01-02] MEDS ORDERED: THIAMINE INJ 100 MG in IV DEXTROSE 5% 50 ML IV ONE (01:30)
[2021-01-02] MEDS ORDERED: IV NORMAL SALINE 1000ML BAG 1,000 ML IV ONE ×2 (01:30→02:00)
--- NOTE | 2021-01-02 01:30 | RAD ---
EXAM: CHEST ONE VIEW. HISTORY: Shortness of breath. COMPARISON: 10/02/2020. FINDINGS: A frontal view of the chest is obtained. There are no confluent infiltrates. There is no pneumothorax or pleural effusion. The heart is not en larged. IMPRESSION: 1. No confluent infiltrates. Electronically signed by: London Arroyo MD (01/02/2021 1:27 AM) [facility]
[2021-01-02 01:35] LABS: ALBUMIN 3.7 g/dL (3.4-5.0); ALBUMIN/GLOBULIN RATIO 1.3 (1.0-1.7); TOTAL PROTEIN 6.6 g/dL (6.4-8.2)
--- NOTE | 2021-01-02 01:41 | EKG ---
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
[2021-01-02 01:45] LABS: ACETAMIN < 2.0 mcg/ml (10-30); SALIC < 2.8 mg/dL (2.8-20.0)
[2021-01-02 04:21] VITALS: BP 88/44
[2021-01-02 05:05] LABS: BILIRUBIN,URINE NEGATIVE (NEG); CLARITY,URINE CLEAR; COLOR,URINE YELLOW; NITRITE,URINE NEGATIVE (NEG); PH,URINE 5.5 (<5.0-8.0); PROTEIN,URINE NEGATIVE (NEG-TRACE); UROBILINOGEN,URINE 0.2 mg/dL (0.2 mg/dL)
[2021-01-02 05:20] LABS: BACTERIA,URINE 0 /HPF (0-FEW); RBC,URINE OCC /HPF (0-2)
[2021-01-02 05:21] LABS: BARBITURATES NEG (NEG); BENZODIAZEPINES NEG (NEG); CANNABINOIDS NEG (NEG); COCAINE POS (NEG); METHADONE NEG (NEG); OPIATES NEG (NEG); PHENCYCLIDINE NEG (NEG)
[2021-01-02 05:25] LABS: AMPHETAMINE/METHAMPHETAMINE POS (NEG)
== END 2021-01-02 05:03 | disposition home or self-care (01) ==
LOC: ER 00:35
DX: F12.10 Cannabis abuse, uncomplicated (principal); F19.10 Other psychoactive substance abuse, uncomplicated; F14.10 Cocaine abuse, uncomplicated; Z98.890 Other specified postprocedural states; Z88.0 Allergy status to penicillin
CPT/HCPCS: 36415; 71045; 80053; 80307; 80329; 81001; 83690; 83735; 85025; 93005; 96365; 96375; 99285; G0480; J2405; J3411; J3490; J7030; J7060

== ENCOUNTER 2021-05-01 19:50 | Emergency (ER) | payer SELFPAY | END 2021-05-01 21:39 | disposition left against medical advice (07) | LOC: ER 19:50 | DX: S99.921A Unspecified injury of right foot, initial encounter (principal); Z53.21 Procedure and treatment not carried out due to patient leaving prior to being seen by health care provider; X58.XXXA Exposure to other specified factors, initial encounter; Y93.89 Activity, other specified; Y92.89 Other specified places as the place of occurrence of the external cause; Y99.8 Other external cause status ==

== ENCOUNTER 2021-05-03 21:00 | Emergency (ER) | payer SELFPAY ==
[~2021-05-03] VITALS: Ht 185.4 cm; Wt 86.3 kg
--- NOTE | 2021-05-04 01:08 | PHYS DOC ---
Past Medical History Past Medical History: Other Additional Past Medical Histor: GOUT Past Surgical History: No Surgical History Additional Past Surgical Histo: KNEE INJECTION , LEFT Smoking Status: Current Some Day Smoker Alcohol Use: Heavy Drug Use: Cocaine, Marijuana, Methamphetamine General Adult EDM: Chief Complaint: DRUG ABUSE HPI: HPI: Patient is a 25 year old male who was brought here by EMS from the streets for complaint of bilateral feet cramping with tingling sensation after he used methamphetamine earlier today. Patient is well-known to this department and this physician. Patient is homeless. Patient denies suicidal ideation, denies homicidal nation. Patient said he is hungry, would like something to eat. She denies abdominal pain, no nausea vomiting. Review of Systems: Review of Systems: Constitutional: Denies fever or chills. [] Eyes: Denies change in visual acuity. [] HENT: Denies nasal congestion or sore throat. [] Respiratory: Denies cough or shortness of breath. [] Cardiovascular: Denies chest pain or edema. [] GI: Denies abdominal pain, nausea, vomiting, bloody stools or diarrhea. [] : Denies dysuria. [] Musculoskeletal: Denies back pain or joint pain. [] Integument: Denies rash. [] Neurologic: Denies headache, focal weakness or sensory changes. [] Endocrine: Denies polyuria or polydipsia. [] Lymphatic: Denies swollen glands. [] Psychiatric: Denies depression or anxiety. [] Heart Score: C/O Chest Pain: N/A Risk Factors: Risk Factors: DM, Current or recent (<one month) smoker, HTN, HLP, family history of CAD, obesity. Risk Scores: Score 0 - 3: 2.5% MACE over next 6 weeks - Discharge Home Score 4 - 6: 20.3% MACE over next 6 weeks - Admit for Clinical Observation Score 7 - 10: 72.7% MACE over next 6 weeks - Early Invasive Strategies Allergies: Allergies: Allergies Coded Allergies Type Severity Reaction Last Updated Verified Penicillins Allergy Intermediate Rash 03/02/14 Yes Physical Exam: PE: Constitutional: Well developed, well nourished, no acute distress, non-toxic appearance. [] HENT: Normocephalic, atraumatic, bilateral external ears normal, oropharynx moist, no oral exudates, nose normal. [] Eyes: PERRLA, EOMI, conjunctiva normal, no discharge. [] Neck: Normal range of motion, no tenderness, supple, no stridor. [] Cardiovascular:Heart rate regular rhythm, no murmur [] Lungs & Thorax: Bilateral breath sounds clear to auscultation [] Abdomen: Bowel sounds normal, soft, no tenderness, no masses, no pulsatile masses. [] Skin: Warm, dry, no erythema, no rash. [] Back: No tenderness, no CVA tenderness. [] Extremities: No tenderness, no cyanosis, no clubbing, ROM intact, no edema. [] Neurologic: Alert and oriented X 3, normal motor function, normal sensory function, no focal deficits noted. [] Psychologic: Affect normal, judgement normal, mood normal. [] Current Patient Data: Vital Signs: Vital Signs Date Time Temp Pulse Resp B/P (MAP) Pulse Ox O2 Delivery O2 Flow Rate FiO2 05/03/21 21:05 98.6 86 16 96/52 (67) 98 Room Air 98.6 EKG: EKG: [] Radiology/Procedures: Radiology/Procedures: [] Course & Med Decision Making: Course & Med Decision Making Pertinent Labs and Imaging studies reviewed. (See chart for details) Patient is a 25-year-old homeless male, who abuse methamphetamine. Patient denies suicidal ideation, denies homicidal ideation. Patient was observed in the ED for 4-hour without any symptom, he was sleeping, patient was fed with food. He was given a Voucher to go to [facility] for crisis stabilization service Dragon Disclaimer: Yanna Disclaimer: This electronic medical record was generated, in whole or in part, using a voice recognition dictation system. Departure Departure Impression: Primary Impression: Substance abuse Disposition: HOME / SELF CARE / HOMELESS Condition: STABLE Referrals: NO PCP (PCP) Patient Instructions: Substance Abuse-Brief Additional Instructions: Follow up with [facility] [address] [address] 24-HOUR Crisis Line: [phone] DEBBIE WEI DO May 04, 2021 01:07
[2021-05-04 01:20] VITALS: BP 145/75
--- NOTE | 2021-05-04 04:28 | EKG ---
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
== END 2021-05-04 01:20 | disposition home or self-care (01) ==
LOC: ER 21:00
DX: F19.10 Other psychoactive substance abuse, uncomplicated (principal); F12.10 Cannabis abuse, uncomplicated; F15.10 Other stimulant abuse, uncomplicated; F14.10 Cocaine abuse, uncomplicated; Z59.0 Homelessness; Z88.0 Allergy status to penicillin
CPT/HCPCS: 93005; 99283

== ENCOUNTER 2021-05-18 18:54 | Emergency (ER) | payer SELFPAY ==
[~2021-05-18] VITALS: Ht 182.9 cm; Wt 72.7 kg
[2021-05-18] MEDS ORDERED: CEPHALEXIN 250 MG CAPSULE. PO ONE (20:00)
[2021-05-18] MEDS ORDERED: DIPH,PERTUSS(ACELL),TET VAC/PF 0.5 ML SYRINGE. VAX IM ONE (20:00)
[2021-05-18] MEDS ORDERED: SMZ/TMP 800/160MG TABLET. PO ONE (20:00)
[2021-05-18] MEDS ORDERED: SULF1TAB24 PO (20:23)
[2021-05-18] MEDS ORDERED: CEPH500C PO (20:23)
--- NOTE | 2021-05-18 20:23 | PHYS DOC ---
Past Medical History Past Medical History: Other Additional Past Medical Histor: GOUT Past Surgical History: No Surgical History Additional Past Surgical Histo: KNEE INJECTION , LEFT Smoking Status: Current Every Day Smoker Alcohol Use: Occasionally Drug Use: Cocaine, Marijuana, Methamphetamine Social History Narrative: iv drug abuse General Adult EDM: Chief Complaint: FOOT INJURY PAIN HPI: HPI: 25-year-old homeless male past medical history of hepatitis C secondary to IV drug use, presents to the ED with complaints of painful, malodorous feet with red rash. States his shoes/socks are wet and "I need new ones." Unsure if his tetanus is up-to-date. Review of Systems: Review of Systems: Constitutional: Denies fever or chills. [] Eyes: Denies change in visual acuity. [] HENT: Denies nasal congestion or sore throat. [] Respiratory: Denies cough or shortness of breath. [] Cardiovascular: Denies chest pain or edema. [] GI: Denies nausea, vomiting, Musculoskeletal: Denies back pain or joint pain. [] Integument: Denies desquamation or blistering lesions Neurologic: Denies focal weakness or sensory changes. [] Psychiatric: Denies depression or anxiety. [] Heart Score: C/O Chest Pain: No Risk Factors: Risk Factors: DM, Current or recent (<one month) smoker, HTN, HLP, family history of CAD, obesity. Risk Scores: Score 0 - 3: 2.5% MACE over next 6 weeks - Discharge Home Score 4 - 6: 20.3% MACE over next 6 weeks - Admit for Clinical Observation Score 7 - 10: 72.7% MACE over next 6 weeks - Early Invasive Strategies Current Medications: Current Medications Medications (Trade) Dose Ordered Sig/Lanette Start Time Stop Time Status Last Admin Dose Admin Cephalexin HCl (Keflex) 500 mg 1X ONCE 05/18/21 20:00 05/18/21 20:01 DC Diphtheria/ Tetanus/Acell Pertussis (ADACEL TDap SYRINGE) 0.5 ml ONCE ONCE 05/18/21 20:00 05/18/21 20:01 DC Trimethoprim/ Sulfamethoxazole (Bactrim Ds) 1 tab 1X ONCE 05/18/21 20:00 05/18/21 20:01 DC Allergies: Allergies: Allergies Coded Allergies Type Severity Reaction Last Updated Verified Penicillins Allergy Intermediate Rash 03/02/14 Yes Physical Exam: PE: Constitutional: No acute distress, poor hygiene/unkept appearance HENT: Normocephalic, atraumatic, Eyes: EOMI, conjunctiva normal, no discharge. Neck: Normal range of motion, supple, Cardiovascular: S1/2 present, regular rhythm Lungs & Thorax: Speaking in full sentences, bilateral equal chest rise, no tachypnea or increased work of breathing Skin: Warm, dry, no erythema, Extremities: No cyanosis, equal DP/PT pulses, cap refill less than 1 second, multiple bunions and white hardened/thick tissue over base of feet, hyperemic regions surrounding base of foot and dorsal aspect of foot with skin breakdown - appears to be irritated with mild epidermal skin breakdown-skin is wet and mi ldly malodorous, no increased warmth or fluctuance Neurologic: Alert and oriented X 3, no focal deficits noted. [] Psychologic: Affect normal, judgement normal, mood normal. [] Current Patient Data: Vital Signs: Vital Signs Date Time Temp Pulse Resp B/P (MAP) Pulse Ox O2 Delivery O2 Flow Rate FiO2 05/18/21 19:22 98.1 106 18 140/72 (98) 97 Room Air 98.1 EKG: EKG: [] Radiology/Procedures: Radiology/Procedures: [] Course & Med Decision Making: Course & Med Decision Making Pertinent Labs and Imaging studies reviewed. (See chart for details) Concern for homeless male with poor foot hygiene with multiple bunions and skin breakdown due to persistent wet socks/shoes. No obvious cellulitis or concerning rash. Patient is neurovascularly intact, steady gait. Patient is requesting support services for substance abuse. PAT team consult performed. Foot hygiene instructions given, recommended sandals to air out foot. Provide antibiotics. Tetanus updated. Will discharge home with strict ED return precautions were given for rash, deformity or severe pain. Encouraged urgent outpatient follow-up with PMD and podiatry. Life-threatening processes were considered but are low suspicion at this time, given history, physical exam and ED workup. Pt was educated on all prescription medications and adverse effects. All patient's questions were answered and pt was stable at time of discharge. Life/limb-threatening differential includes but is not limited to, trauma (fracture, dislocation, laceration, compartment syndrome, tendon or ligament injury), neurovascular injury or deficitcva/tia, infection (osteomyelitis, abs cess, cellulitis, septic arthritis, necrotizing fasciitis), deep vein thrombosis, renal/cardiac/liver disease, medication adverse effect, lymphedema/anasarca, vascular insufficiency or malignancy, I have spoken with the patient and/or caregivers. I explained the patient's condition, diagnoses and treatment plan based on the information available to me at this time. I have answered the patient and/or caregiver's questions and addressed any concerns. The patient and/or caregivers have a good understanding of patient's diagnosis, condition and treatment plan as can be expected at this point. Vital signs have been stable. Patient's condition is stable and appropriate for discharge from the emergency department. Patient will pursue further outpatient evaluation with primary care physician or other designated or consulting physician as outlined in the discharge instructions. The patient and/or caregivers are agreeable to this plan of care and follow-up instructions have been explained in detail. The patient and/or caregivers have received these instructions in written form and have expressed an understanding of the discharge instructions. The patient and/or caregivers are aware that any significant change of condition or worsening of symptoms should prompt immediate return to this or the closest emergency department or call to 911. Yanna Disclaimer: StillSecure Disclaimer: This electronic medical record was generated, in whole or in part, using a voice recognition dictation system. Departure Departure Impression: Primary Impression: Rash of both feet Additional Impressions: Polysubstance abuse Need for Tdap vaccination Disposition: 01 HOME / SELF CARE / HOMELESS Condition: STABLE Referrals: NO PCP (PCP) Follow-up with your primary care physician in 24 to 48 hours OR FOLLOW UP WITH FAMILY MEDICINE: [address] [facility], [facility] [address] [place] [address] Patient Instructions: [place] Rashes, Substance Abuse-Brief, VIS, Tetanus, Diphtheria (Td); Tetanus, Diphtheria, Pertussis (Tdap) - CDC Additional Instructions: FOLLOW UP WITH PODIATRY: FOR DEFINITIVE MANAGEMENT Podiatric Surgery [address] [facility], [facility] [address] [place] [address] EMERGENCY DEPARTMENT GENERAL DISCHARGE INSTRUCTIONS Thank you for coming to [facility] Emergency Department (ED) today and trusting us with you care. We trust that you had a positive experience in our Emergency Department. If you wish to speak to the department management, you may call the Director at [phone]. YOUR FOLLOW UP INSTRUCTIONS ARE FOLLOWS: 1. Do you have a private Doctor? If you do not have a private doctor, please ask for a resource list of physicians or clinics that may be able to assist you with follow up care. 2. The Emergency Physicain has interpreted your x-rays. The X-Ray specialist will also review them. If there is a change in the findings, you will be notified in 48 hours when at all possible. 3. A lab test or culture has been done, your results will be reviewed and you will be notified if you need a change in treatment. ADDITIONAL INSTRUCTIONS AND INFORMATION: 1. Your care today has been supervised by a physician who is specially trained in emergency care. Many problems require more than one evaluation for a complete diagnosis and treatment. We recommend that you schedule your follow up appointment as recommended to ensure complete treatment of you illness or injury. If you are unable to obtain follow up care and continue to have a problem, or if your condition worsens, we recommend that you return to the ED. 2. We are not able to safely determine your condition over the phone nor are we able to give sound medical advice over the phone. For these safety reasons, if you call for medical advice we will ask you to come to the ED for further evaluation. 3. If you have any questions regarding these discharge instructions please call the ED at [phone]. SAFETY INFORMATION: In the interest of safety, wellness, and injury prevention; we encourage you to wear your sealbelt, if you smoke; quite smoking, and we encourage family to use a protective helmet for bicycling and other sporting events that present an increased risk for head injury. IF YOUR SYMPTOMS WORSEN OR NEW SYMPTOMS DEVELOP, OR YOU HAVE CONCERNS ABOUT YOUR CONDITION; OR IF YOUR CONDITION WORSENS WHILE YOU ARE WAITING FOR YOUR FOLLOW UP APPOINTMENT; EITHER CONTACT YOUR PRIMARY CARE DOCTOR, THE PHYSICIAN WHOSE NAME AND NUMBER YOU WERE GIVEN, OR RETURN TO THE ED IMMEDIATELY. Scripts Sulfamethoxazole/Trimethoprim (BACTRIM DS TABLET) 1 Each Tablet 1 TAB PO BID for infection for 10 Days, #20 TAB Prov: CRISPIN PHOENIX DO 05/18/21 Cephalexin (CEPHALEXIN) 500 Mg Capsule 1 CAP PO QID for 10 Days, #40 CAP Prov: CRISPIN PHOENIX DO 05/18/21 CRISPIN PHOENIX DO May 18, 2021 20:23
[2021-05-18] MEDS ORDERED: IBUPROFEN 200 MG TABLET. PO ONE ×2 (20:59→21:15)
== END 2021-05-18 21:06 | disposition home or self-care (01) ==
LOC: ER 18:54
DX: R21 Rash and other nonspecific skin eruption (principal); F19.10 Other psychoactive substance abuse, uncomplicated; F17.200 Nicotine dependence, unspecified, uncomplicated; Z88.0 Allergy status to penicillin
CPT/HCPCS: 90471; 90715; 99284-25

== ENCOUNTER 2021-05-29 12:39 | Emergency (ER) | payer SELFPAY ==
[~2021-05-29] VITALS: Ht 185.4 cm; Wt 85.0 kg
[~2021-05-29 12:39] MED LIST changes: +CEPH500C PO; +CHLO5CAP2 PO; +GABA300C18 PO; +Nicotine 14MG TD; +SULF1TAB24 PO; +TRAZ-118 PO
[2021-05-29] MEDS ORDERED: IV RINGERS,LACTATED 1000ML 1,000 ML IV ONE (14:30)
--- NOTE | 2021-05-29 14:36 | PHYS DOC ---
Past Medical History Past Medical History: Other Additional Past Medical Histor: GOUT , hep c+, iv drug abuse Past Surgical History: Tonsillectomy Additional Past Surgical Histo: KNEE INJECTION , LEFT Smoking Status: Current Every Day Smoker Alcohol Use: Occasionally Drug Use: Cocaine, Marijuana, Methamphetamine General Adult EDM: Chief Complaint: DIZZY/LIGHT HEADED HPI: HPI: Patient is a 25 year old male with history of IV methamphetamine abuse, hepatitis C, and gout who presents with some dizziness starting today. Spent most of the day out in the heat and had used methamphetamine. Is feeling lightheaded. No headache, weakness, numbness. He also is complaining of some yellowness to the bottom of his feet. They feel somewhat sore when he standing on them, but improved with his feet up. He does not have a PCP. Has not been treated for hepatitis C. Denies any chest pain. When he was out walking shortly after using methamphetamine he did state that he had some shortness of breath. This is resolved since. Denies fevers or chills. No abdominal pain. Review of Systems: Review of Systems: Constitutional: Denies fever or chills. [] Eyes: Denies change in visual acuity. [] HENT: Denies nasal congestion or sore throat. [] Respiratory: Denies cough. shortness of breath is now resolved. [] Cardiovascular: Denies chest pain or edema. [] GI: Denies abdominal pain, nausea, vomiting, bloody stools or diarrhea. [] : Denies dysuria. [] Musculoskeletal: Yellowing on bottom of feet. Denies back pain or joint pain. [] Integument: Denies rash. [] Neurologic: + Dizziness. Denies headache, focal weakness or sensory changes. [] Endocrine: Denies polyuria or polydipsia. [] Lymphatic: Denies swollen glands. [] Psychiatric: Denies depression or anxiety. [] Heart Score: C/O Chest Pain: No Risk Factors: Risk Factors: DM, Current or recent (<one month) smoker, HTN, HLP, family history of CAD, obesity. Risk Scores: Score 0 - 3: 2.5% MACE over next 6 weeks - Discharge Home Score 4 - 6: 20.3% MACE over next 6 weeks - Admit for Clinical Observation Score 7 - 10: 72.7% MACE over next 6 weeks - Early Invasive Strategies Family History: Family History: No pertinent family history Allergies: Allergies: Allergies Coded Allergies Type Severity Reaction Last Updated Verified Penicillins Allergy Intermediate Rash 03/02/14 Yes Physical Exam: PE: Constitutional: Alert and oriented. No acute distress.. [] HENT: Normocephalic, atraumatic, bilateral external ears normal, oropharynx mo ist, no oral exudates, nose normal. [] Eyes: Pupils approximately 4-5 mm bilaterally. PERRLA, EOMI, conjunctiva normal, no discharge. [] Neck: Normal range of motion, no tenderness, supple, no stridor. [] Cardiovascular: Tachycardia, regular rhythm, no murmur [] Lungs & Thorax: Bilateral breath sounds clear to auscultation [] Abdomen: Bowel sounds normal, soft, no tenderness, no masses, no pulsatile masses. [] Skin: Has some yellowing of the soles of his feet and some calluses. Feet appear wet. No ulcerations or cellulitic changes. No erythema, no rash. [] Extremities: No tenderness, no cyanosis, no clubbing, ROM intact, no edema. [] Neurologic: Alert and oriented X 3, normal motor function, normal sensory f unction, no focal deficits noted. [] Psychologic: Affect normal, judgement normal, mood normal. [] EKG: EKG: [] Radiology/Procedures: Radiology/Procedures: [] Course & Med Decision Making: Course & Med Decision Making Pertinent Labs and Imaging studies reviewed. (See chart for details) Patient is a 25-year-old male with a history of methamphetamine abuse, hepatitis C, gout who presents with some dizziness after using methamphetamine and being exposed to high temperatures outside today. Also complains of some yellowing of his feet, which appear wet with calluses, but no evidence of cellulitis or ulceration. On arrival is slightly tachycardic, pupils mydriatic consistent with methamphetamine toxidrome. Will check an EKG, basic labs, give a liter of IV fluids given his heat exposure and low p.o. intake today. 1435 Labs reassuring. Chest x-ray without acute process. Feel this is most consistent with methamphetamine use and dehydration. Feel patient is safe for discharge at this time. 1631 Yanna Disclaimer: Yanna Disclaimer: This electronic medical record was generated, in whole or in part, using a voice recognition dictation system. Departure Departure Disposition: HOME / SELF CARE / HOMELESS Condition: STABLE Referrals: NO PCP (PCP) Since you do not have a PCP, please call the number for the [facility] at [phone]. Additional Instructions: Please consider decreasing your methamphetamine use or stopping altogether. I think that this is likely contributing to your symptoms as well as exertion. Please try to keep yourself well-hydrated. Please call the number attached to establish with a primary care doctor as well. RACHAEL SUMNER MD May 29, 2021 14:36
--- NOTE | 2021-05-29 15:00 | RAD ---
Single AP view of the chest. Comparison: 01/02/2021. Indication: Dizziness Findings: The heart is not enlarged. There is no pneumothorax or effusion. No air space or interstitial diseas e. Impression: 1. No acute cardiopulmonary process. Electronically signed by: Jorge A Jacinto MD (05/29/2021 2:58 PM) [id number]
[2021-05-29 15:14] LABS: BASO % 0 % (0-3); EOS % 0 % (0-3); HEMATOCRIT 45.5 % (39.0-53.0); HEMOGLOBIN 15.6 g/dL (13.0-17.5); LYMPH # 1.9 x10^3/uL (1.0-4.8); LYMPH % 22 % (24-48); MEAN CORPUSCULAR HEMOGLOBIN 31 pg (25-35); MEAN CORPUSCULAR HGB CONC 34 g/dL (31-37); MEAN CORPUSCULAR VOLUME 91 fL (79-100); MONO # 1.1 x10^3/uL (0.0-1.1); MONO % 12 % (0-9); NEUT # 5.7 x10^3/uL (1.8-7.7); NEUT % 66 % (31-73); PLATELET COUNT 302 x10^3/uL (140-400); RED BLOOD COUNT 4.98 x10^6/uL (4.30-5.70); RED CELL DISTRIBUTION WIDTH 13.1 % (11.5-14.5); WHITE BLOOD COUNT 8.7 x10^3/uL (4.0-11.0)
[2021-05-29 15:23] LABS: CALCIUM 10.2 mg/dL (8.5-10.1); CREATININE 1.3 mg/dL (0.7-1.3); GFR 66.7; POTASSIUM 4.4 mmol/L (3.5-5.1)
[2021-05-29 15:30] LABS: ALBUMIN 4.5 g/dL (3.4-5.0); TOTAL BILIRUBIN 0.6 mg/dL (0.2-1.0); TOTAL PROTEIN 8.8 g/dL (6.4-8.2)
[2021-05-29 15:48] VITALS: BP 153/79
== END 2021-05-29 16:42 | disposition home or self-care (01) ==
LOC: ER 12:39
DX: R42 Dizziness and giddiness (principal); R06.02 Shortness of breath; F15.10 Other stimulant abuse, uncomplicated; M10.9 Gout, unspecified; F17.200 Nicotine dependence, unspecified, uncomplicated; Z88.0 Allergy status to penicillin
CPT/HCPCS: 36415; 71045; 80053; 85025; 93005; 96360; 96361; 99285; J7120

== ENCOUNTER 2021-05-30 23:34 | Emergency (ER) | payer SELFPAY ==
[~2021-05-30] VITALS: Ht 185.4 cm; Wt 85.0 kg
[2021-05-31] MEDS ORDERED: INDO50CA15 PO (01:43)
--- NOTE | 2021-05-31 01:44 | ED.ADGEN ---
Past Medical History Past Medical History: Other Additional Past Medical Histor: GOUT , hep c+, iv drug abuse Past Surgical History: Tonsillectomy Additional Past Surgical Histo: KNEE INJECTION , LEFT Smoking Status: Current Every Day Smoker Alcohol Use: Occasionally Drug Use: Cocaine, Marijuana, Methamphetamine General Adult EDM: Chief Complaint: ALCOHOL INTOXICATION HPI: HPI: Patient is a 25 year old male presenting with substance abuse issues and right knee pain secondary to his gout. Patient has had multiple flareups of gotten been tested for and states is similar. Admits to using alcohol and methamphetamines today. Patient recently discharged for alcohol withdrawal treatment. Patient states he is willing to go to [facility] detox unit today. No other complaints. Has had his Covid vaccines. Review of Systems: Review of Systems: All other systems within normal limits except for as noted in the HPI Current Medications: Current Medications Medications (Trade) Dose Ordered Sig/Lanette Start Time Stop Time Status Last Admin Dose Admin Indomethacin (Indocin) 50 mg 1X STAT 05/31/21 01:32 05/31/21 01:33 UNV Allergies: Allergies: Allergies Coded Allergies Type Severity Reaction Last Updated Verified Penicillins Allergy Intermediate Rash 03/02/14 Yes Physical Exam: PE: Constitutional: Well developed, well nourished, no acute distress, non-toxic appearance. [] HENT: Normocephalic, atraumatic, bilateral external ears normal, nose normal. [] Eyes: PERRLA, conjunctiva normal, no discharge. [] Neck: No rigidity, supple, no stridor. [] Cardiovascular: Regular rate and rhythm, brisk cap refill [] Lungs & Thorax: Non labored symmetric respirations, no tachypnea or respiratory distress [] Abdomen: Soft, nondistended. Skin: Warm, dry, no erythema, no rash. [] Back: Unremarkable Extremities: No deformities, range of motion grossly intact, no lower extremity edema. Slight edema of the right knee without erythema or warmth. Range of motion intact. [] Neurologic: Alert and oriented X 3, no focal deficits noted. [] Psychologic: Affect normal, judgement normal, mood normal. [] EKG: EKG: [] Heart Score: C/O Chest Pain: No Risk Factors: Risk Factors: DM, Current or recent (<one month) smoker, HTN, HLP, family history of CAD, obesity. Risk Scores: Score 0 - 3: 2.5% MACE over next 6 weeks - Discharge Home Score 4 - 6: 20.3% MACE over next 6 weeks - Admit for Clinical Observation Score 7 - 10: 72.7% MACE over next 6 weeks - Early Invasive Strategies Radiology/Procedures: Radiology/Procedures: [] Course & Med Decision Making: Course & Med Decision Making PAT evaluated and set up arrangements to go to [facility] unit Yanna Disclaimer: Yanna Disclaimer: This electronic medical record was generated, in whole or in part, using a voice recognition dictation system. Departure Departure Impression: Primary Impression: Methamphetamine abuse Additional Impressions: Alcoholism Gout flare Disposition: HOME / SELF CARE / HOMELESS Condition: STABLE Referrals: NO PCP (PCP) Patient Instructions: Gout Scripts Indomethacin (INDOMETHACIN) 50 Mg Capsule 1 CAP PO TID for gout for 5 Days, #15 CAP 0 Refills with food Prov: JOCELINE GAN MD 05/31/21 Problem Qualifiers JOCELINE GAN MD May 31, 2021 01:44
[2021-05-31 02:00] VITALS: BP 100/59
[2021-05-31] MEDS ORDERED: INDOMETHACIN 25 MG CAPSULE. PO ONE (02:00)
== END 2021-05-31 03:45 | disposition home or self-care (01) ==
LOC: ER 23:34
DX: U07.1 COVID-19 (principal); F15.129 Other stimulant abuse with intoxication, unspecified; M10.9 Gout, unspecified; M25.561 Pain in right knee; F17.200 Nicotine dependence, unspecified, uncomplicated; Z88.0 Allergy status to penicillin
CPT/HCPCS: 87426; 99283; U0003; U0005